=== PATIENT | female | born 1945 | race Caucasian/White ===

== ENCOUNTER 2019-04-07 15:18 | Outpatient (CLI) | payer MEDICARE, OTHER, SELFPAY ==
--- NOTE | ~2019-04-07 | MM_ITS ---
EXAMINATION: MM screening mammo BI HISTORY: Screening mammogram TECHNIQUE: Craniocaudal and mediolateral oblique 3-D tomosynthesis images were obtained and synthetic 2-D images were generated. CAD analysis was submitted and interpreted. COMPARISON: No prior mammogram is available for comparison at this institution. BREAST PARENCHYMAL COMPOSITION: The breasts are almost entirely fatty. FINDINGS: Scattered benign-appearing calcifications are present. There is no evidence of suspicious m ass, calcification, or architectural distortion to suggest malignancy in either breast. There has bee n no suspicious interval change. IMPRESSION: 1. No mammographic evidence of malignancy. 2. Recommend routine screening mammography in one year. Calx Reviewed, dictated and finalized at location A. [employer]
== END 2019-04-07 15:19 | disposition home or self-care (01) ==
LOC: ANHIMG 15:25
PROVIDERS: PCP Internal Medicine; Visit Provider Internal Medicine
DX: Z12.31 Encounter for screening mammogram for malignant neoplasm of breast (principal)
CPT/HCPCS: 77067

== ENCOUNTER 2019-04-21 13:00 | Outpatient (CLI) | payer MEDICARE, OTHER, SELFPAY ==
--- NOTE | ~2019-04-21 | DEXA_ITS ---
Bone Density Report Name: Isabela Moe Age: 73 Sex: Female Ethnicity: White Date of : 1945 Indication: postmenopausal; height loss; cancer; Referring Provider: OTF PEDRO Study: Bone densitometry was performed. Exam Date: April 21, 2019 Accession number: [id number] Bone Density: Region BMD T-score Z-score Classification AP Spine (L1, L2) 0.904 -0.7 1.5 Normal Femoral Neck (Left) 0.566 -2.6 -0.6 Osteoporosis Total Hip (Left) 0.828 -0.9 0.8 Normal Total Hip Bilateral Avg 0.843 -0.8 0.9 Normal Femoral Neck (Right) 0.563 -2.6 -0.6 Osteoporosis Total Hip (Right) 0.857 -0.7 1.0 Normal World Health Organization criteria for BMD impression classify patients as: Normal (T-score at or above -1.0), Osteopenia (T-score between -1.0 and -2.5), or Osteoporosis (T-score at or below -2.5). 10-year Fracture Risk: FRAX not reported because: Some T-score for Spine Total or Hip Total or Femoral Neck at or below -2.5 Treated for osteoporosis Clinical Information Provided by Patient: Is being treated for osteoporosis Has used the following medications: Fosamax (i.e. alendronate) Has the following medical conditions: Cancer Patient maximum height was 63 Menopause Age: 53 Drinks caffeinated beverages Onset of menses at age 13 Number of children 0 Impression: The patient has osteoporosis, based on the Left Femoral Neck T-score. Discussion: It is important to ask patients whether they are taking their medications and to encourage continued and appropriate compliance with their osteoporosis therapies to reduce fracture risk. It is also important to review their risk factors and encourage appropriate calcium and vitamin D intakes, exercise, fall prevention and other lifestyle measures. Follow-Up: Consider a repeat BMD and Vertebral Fracture Assessment (VFA) exam in 2 years or sooner if medically necessary, to reassess this patient's status. Reported by: ADAM on 04/21/2019 1:29:00 PM. Reviewed, dictated and finalized at location A. NOE
== END 2019-04-21 13:01 | disposition home or self-care (01) ==
LOC: ANHIMG 13:07
PROVIDERS: PCP Internal Medicine; Visit Provider Internal Medicine
DX: M81.0 Age-related osteoporosis without current pathological fracture (principal)
CPT/HCPCS: 77080

== ENCOUNTER 2019-07-25 11:56 | Outpatient (CLI) | payer MEDICARE, OTHER, SELFPAY ==
[2019-07-25 12:45] LABS: Add Urine Microscopic? NO; Appearance Urine Clear (Clear); Bilirubin Urine Negative (Negative); Blood Urine Negative (Negative); Color Urine Yellow (Yellow); Glucose Urine UA Negative (Negative); Ketones Urine Negative (Negative); Leukocyte Esterase Ur Negative LEU/UL (NEGATIVE); Nitrate Urine Negative (Negative); Protein Urine Negative (Negative); Urobilinogen Urine Negative mg/dL (<2.0)
[2019-07-25 12:53] LABS: Hemoglobin A1C 7.2 % (<5.7)
[2019-07-25 12:59] LABS: Alanine Aminotransferase 52 U/L (4-35); Albumin Level 4.1 g/dL (3.5-5.1); Alkaline Phosphatase 93 U/L (38-126); Aspartate Amino Transferase 53 U/L (14-36); Bilirubin,Total 1.2 mg/dL (0.2-1.3); Blood Urea Nitrogen 12 mg/dL (7-17); Calcium 9.3 mg/dL (8.4-10.2); Carbon Dioxide 32 mmol/L (22-30); Chloride 96 mmol/L (98-107); Cholesterol 124 mg/dL (0-200); Estimated Glomerular Filt Rate > 60; Glucose 194 mg/dL (65-105); HDL Direct 38 mg/dL; Potassium 4.7 mmol/L (3.4-5.0); Sodium 133 mmol/L (137-145); Triglycerides 135 mg/dL (<150)
[2019-07-25 13:06] LABS: Iron 65 ug/dL (37-170)
[2019-07-25 13:10] LABS: LDL Cholesterol Direct 64 mg/dL
[2019-07-25 13:16] LABS: Percent Iron Saturation 17 % (20-50)
== END 2019-07-25 11:57 | disposition home or self-care (01) ==
PROVIDERS: PCP Internal Medicine; Visit Provider Internal Medicine
DX: E78.2 Mixed hyperlipidemia (principal); I10 Essential (primary) hypertension; Z79.899 Other long term (current) drug therapy; E11.9 Type 2 diabetes mellitus without complications
CPT/HCPCS: 36415; 80048; 80061; 80076; 81003; 82728; 83036; 83540; 83550; 84443

== ENCOUNTER 2019-08-10 07:46 | Outpatient (CLI) | payer MEDICARE, OTHER, SELFPAY ==
--- NOTE | ~2019-08-10 | US_ITS ---
US right upper quadrant DATE: 08/10/2019 08:16 INDICATION: Elevated liver function tests TECHNIQUE: Real-time imaging and Doppler analysis COMPARISON: None FINDINGS: No hepatic or pancreatic space-occupying mass lesion is evident. Normal hepatopedal portal venous flow. The common bile duct measures 4.7 mm, normal. No gallstones or gallbladder wall thickening or abnormal pericholecystic fluid collection. Negative s onographic Madrigal's sign. IMPRESSION: No significant abnormality Reviewed, dictated and finalized at Location [facility]. Reviewed, dictated and finalized at location A. IMPRESSION: No significant abnormality
== END 2019-08-10 07:47 | disposition home or self-care (01) ==
PROVIDERS: PCP Internal Medicine; Visit Provider Internal Medicine
DX: R94.5 Abnormal results of liver function studies (principal)
CPT/HCPCS: 76705

== ENCOUNTER 2019-08-30 12:50 | Outpatient (RCR) | payer MEDICARE, OTHER, SELFPAY ==
[2019-08-30 13:04] VITALS: BMI 24.7
== END 2019-11-28 23:59 | disposition home or self-care (01) ==
LOC: ANHDMC 12:50
PROVIDERS: PCP Internal Medicine; Visit Provider Internal Medicine
DX: E11.9 Type 2 diabetes mellitus without complications (principal); Z71.3 Dietary counseling and surveillance
CPT/HCPCS: 97802

== ENCOUNTER 2019-10-10 15:37 | Day surgery (SDC) | payer MEDICARE, OTHER, SELFPAY ==
[2019-10-10] VITALS (27 sets, daily range): BP systolic 114–158; BP diastolic 52–120; PULSE 70–78; RESP 12–21; TEMP 36.3–36.9; O2SAT 90–100
--- NOTE | ~2019-10-10 | CT_ITS ---
EXAMINATION: CT abdomen pelvis w con DATE: 10/10/2019 16:47 INDICATION: Abdominal pain, nausea and vomiting TECHNIQUE: Computed tomography (CT) of the abdomen and pelvis was performed with 100 mL Omnipaque-350 intravenous contrast. Automated exposure control and iterative reconstruction technique were employe d. The dose-length product was 412.95 mGy-cm. COMPARISON: None FINDINGS: Calcified nodule in the right middle lobe as well as a few splenic calcifications consistent with old granulomatous disease. Smooth septal line thickening and mild peripheral groundglass opacities in bi lateral lung bases consistent with mild pulmonary edema. Heart size is normal. Atherosclerotic gaines ry artery calcifications and/or stenting. No pericardial or pleural effusion. Wall thickening the dis jocelin esophagus suggesting esophagitis. Mild periportal edema in the liver. There is also a trace amoun t of fluid at the gallbladder fossa between the liver and otherwise normal-appearing gallbladder. Nieves creas, bilateral adrenal glands and kidneys are normal. Incidentally noted accessory right renal wilton ry and vein supplying the lower pole. There is inflammatory stranding surrounding the fluid-filled an d dilated appendix which measures up to 1.4 cm in maximal diameter. Intraluminal densities likely rep resent appendicoliths. There is also cecal wall thickening at the appendiceal orifice. Findings are c onsistent with acute appendicitis. Anastomotic suture line along the sigmoid colon suggesting prior p artial colectomy. No bowel obstruction. There is additional small amount of ascites in the pelvis. Bl adder, uterus and left adnexa are unremarkable. 2.4 cm right adnexal cyst. No abscess or free intrape ritoneal gas. No pathologically enlarged abdominal or pelvic lymphadenopathy. There is calcified athe rosclerosis of the aorta and many of the other arteries. Lumbar levoscoliosis with severe spondylosi s. IMPRESSION: 1. Acute appendicitis with small amount of likely reactive ascites. Dr. Sna discussed these find ings with Dr. Wang at 5:05 PM. 2. Mild pulmonary edema at the lung bases. 3. Mild distal esophageal wall thickening consistent with esophagitis. Reviewed, dictated and finalized at location A. IMPRESSION: 1. Acute appendicitis with small amount of likely reactive ascites. Dr. Melody falk discussed these findings with Dr. Wang at 5:05 PM. 2. Mild pulmonary edema at the lung bases. 3. Mild distal esophageal wall thickening consistent with esophagitis.
[2019-10-10 16:02] LABS: Hematocrit 36.8 % (37.0-47.0); Hemoglobin 12.1 g/dL (12.0-15.0); Mean Corpuscular HGB Conc 32.9 g/dl (32-36); Mean Corpuscular Hemoglobin 25.9 pg (26-34); Mean Corpuscular Volume 78.8 fl (80-100); Mean Platelet Volume 10.3 fl (7.4-10.4); Platelet Count Result 258 k/mm3 (150-375); Red Blood Count 4.67 M/mm3 (4.2-5.4); Red Cell Distribution Width 14.8 % (11.5-14.5); White Blood Count 21.1 K/mm3 (4.5-10.0)
--- NOTE | 2019-10-10 16:07 | ED.ABDPAIN ---
HPI - Abdominal Pain General Chief Complaint: Abdominal Pain Stated Complaint: ABD PAIN Time Seen by Provider: 10/10/19 15:48 History of Present Illness HPI narrative: Sent from PCP office for Abdominal pain. RLQ pain for the past 3 days. Becoming more severe. Associated with nausea and 1 episode of vomiting on Thursday. Last BM Thursday. She has a h/o colon resection secondary to cancer. Related Data Home Medications Medication Instructions Recorded Confirmed aspirin 81 mg tablet,delayed 81 mg PO DAILY 01/20/19 10/10/19 release atorvastatin 40 mg tablet 40 mg PO DAILY 01/20/19 10/10/19 calcium carbonate-vitamin D3 500 1 tablet PO DAILY 01/20/19 10/10/19 mg (1,250 mg)-600 unit tablet ferrous sulfate 325 mg (65 mg 325 mg PO DAILY 01/20/19 10/10/19 iron) tablet glimepiride 1 mg tablet 1 mg PO QAM 01/20/19 10/10/19 sitagliptin 100 mg tablet 100 mg PO DAILY 01/20/19 10/10/19 alendronate 70 mg tablet 70 mg PO WEEKLY 02/17/19 10/10/19 mecobalamin (vitamin B12) 1,000 1,000 mcg SUBLINGUAL DAILY 05/03/19 10/10/19 mcg disintegrating tablet,sublingual niacin 500 mg capsule,extended 500 mg PO QAM 05/03/19 10/10/19 release Adult Multivitamin (w-lutein) 1 tablet PO DAILY 10/10/19 10/10/19 Allergies Allergy/AdvReac Type Severity Reaction Status Date / Time shrimp Allergy Intermediate Hives Verified 10/10/19 14:59 cucumber AdvReac Severe gas Verified 10/10/19 14:59 erythromycin base AdvReac Mild upset Verified 10/10/19 14:59 [From E-Mycin] stomach morphine AdvReac Mild dry heaves Verified 10/10/19 14:59 Penicillins AdvReac Mild dry heaves Verified 10/10/19 14:59 Review of Systems Review of Systems: All systems reviewed & are unremarkable except as noted in HPI and below Constitutional: Constitutional: Denies fever(s) Cardiovascular: Cardiovascular: Denies chest pain Respiratory: Respiratory: Denies dyspnea Gastrointestinal: Gastrointestinal: Reports abdominal pain, Reports constipation, Denies diarrhea, Reports nausea and Reports vomiting PMFSH Past Medical History Medical History Abdominal pain Benign essential hypertension BMI 26.0-26.9,adult BMI 27.0-27.9,adult Cataract Colon cancer screening DM type 2 (diabetes mellitus, type 2) Elevated homocysteine Elevated LFTs Encounter for Medicare annual wellness exam Encounter for routine adult health examination without abnormal findings Encounter for screening mammogram for malignant neoplasm of breast Encounter to establish care Hearing loss History of colon cancer HTN (hypertension), benign Hyperlipidemia Iron deficiency anemia 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 Osteoporosis Personal history of nicotine dependence Wears hearing aid in both ears Surgical History Surgical History History of bilateral knee replacement History of bowel resection Laparoscopic low anterior resection in 2016 Social History Social History Spiritual care concerns: No Exam Const: General: no acute distress and alert Orientation/consciousness: patient oriented x3 HENMT: Head: normal to inspection Neck: Neck: normal visual inspection and no lymphadenopathy Chest: Chest palpation & inspection: no tenderness Resp: Effort & Inspection: normal respiratory effort Auscultation: clear to auscultation bilaterally, no rales, no rhonchi and no wheezes Cardio: Jugular venous distension: no JVD Rate: regular rate Rhythm: regular rhythm Heart sounds: no murmurs GI: Inspection: non-distended GI Palp: Yes Soft to palpation and Yes Tenderness to palpation present (GI) (RLQ, suprapubic) Skin: General skin exam: normal color Neuro: General: patient oriented x3, moves all extremities and CN's II-XI intact bilaterally Speech: normal speech Psych: Appearance: well kempt Affect: normal affect Course Vital Si
[2019-10-10 16:14] LABS: Alanine Aminotransferase 24 U/L (4-35); Albumin Level 4.3 g/dL (3.5-5.1); Alkaline Phosphatase 57 U/L (38-126); Anion Gap 14.8 mmol/L (7-16); Aspartate Amino Transferase 26 U/L (14-36); Bilirubin,Total 2.4 mg/dL (0.2-1.3); Blood Urea Nitrogen 9 mg/dL (7-17); Calcium 8.9 mg/dL (8.4-10.2); Carbon Dioxide 27 mmol/L (22-30); Chloride 87 mmol/L (98-107); Estimated CRCL calculation 71 ml/min; Estimated Glomerular Filt Rate > 60; Glucose 173 mg/dL (65-105); Lipase 65 U/L (23-300); Potassium 3.8 mmol/L (3.4-5.0); Sodium 125 mmol/L (137-145)
[2019-10-10 16:25] LABS: Lymphocytes Absolute Manual 4.22 K/mm3 (1.1-4.5); Monocytes Absolute Manual 1.05 K/mm3 (0.1-0.90); Monocytes Percent Manual 5 % (3-9); Neutrophils Percent Manual 75 % (46-73); Platelet Estimate Adequate (Adequate); Total Cells Counted 100
[2019-10-10 16:40] LABS: Add Urine Microscopic? YES; Appearance Urine Clear (Clear); Bacteria Urine Trace /hpf; Bilirubin Urine Negative (Negative); Blood Urine 1+ (Negative); Color Urine Yellow (Yellow); Glucose Urine UA Negative (Negative); Ketones Urine Negative (Negative); Leukocyte Esterase Ur Negative LEU/UL (Negative); Mucus Urine Rare /lpf; Nitrate Urine Negative (Negative); Protein Urine Negative (Negative); Specific Grav Ur 1.012 (1.001-1.035); Urobilinogen Urine Negative mg/dL (<2.0); WBC Urine 0-3 /hpf
[2019-10-10] MEDS: SODIUM CHLORIDE 0.9% IV 1,000 ML 999 ML IV CONT (16:59)
[2019-10-10] MEDS: ERTAPENEM 1 GM/NS 50 ML 1 GM/50 ML BAG IVPB (17:45)
--- NOTE | 2019-10-10 18:05 | WPDANESEPP ---
Anes - Eval Pre Procedure Procedure: Laparoscopic appendectomy Date/Time: 10/10/19 18:05 Surgeon: Rex Baker M.D. Preop Diagnosis: acute appendicitis Pre Op Diagnosis: APPENDICITIS Patient Data Age: 73 Gender: F Height: 1.55 m Weight: 63.7 kg Last Vital Signs Temp 36.9 C 10/10/19 15:58 Pulse 73 10/10/19 17:53 Resp 21 H 10/10/19 17:53 BP 138/84 10/10/19 17:31 Pulse Ox 93 10/10/19 17:31 Allergies Allergy/AdvReac Type Severity Reaction Status Date / Time shrimp Allergy Intermediate Hives Verified 10/10/19 14:59 cucumber AdvReac Severe gas Verified 10/10/19 14:59 erythromycin base AdvReac Mild upset Verified 10/10/19 14:59 [From E-Mycin] stomach morphine AdvReac Mild dry heaves Verified 10/10/19 14:59 Penicillins AdvReac Mild dry heaves Verified 10/10/19 14:59 Home Medications Medication Instructions Recorded Confirmed Type aspirin 81 mg tablet,delayed 81 mg PO DAILY 01/20/19 10/10/19 History release atorvastatin 40 mg tablet 40 mg PO DAILY 01/20/19 10/10/19 History calcium carbonate-vitamin D3 500 tablet PO 01/20/19 10/10/19 History mg (1,250 mg)-600 unit tablet ferrous sulfate 325 mg (65 mg 325 mg PO DAILY 01/20/19 10/10/19 History iron) tablet glimepiride 1 mg tablet 1 mg PO QAM 01/20/19 10/10/19 History kaajgzam-lhwzyyu-hkbv-lutein mcg PO 01/20/19 10/10/19 History sitagliptin 100 mg tablet 100 mg PO DAILY 01/20/19 10/10/19 History alendronate 70 mg tablet 70 mg PO WEEKLY 02/17/19 10/10/19 History folic acid 1 mg tablet 1 mg PO DAILY #90 tablet 03/17/19 10/10/19 Rx omeprazole 20 mg capsule,delayed 20 mg PO DAILY #90 cap 03/28/19 10/10/19 Rx release mecobalamin (vitamin B12) 1,000 1,000 mcg SUBLINGUAL DAILY 05/03/19 10/10/19 History mcg disintegrating tablet,sublingual niacin 500 mg capsule,extended 500 mg PO QAM 05/03/19 10/10/19 History release nadolol 20 mg tablet 20 mg PO BID #180 tablet 06/20/19 10/10/19 Rx blood sugar diagnostic #100 each 08/15/19 10/10/19 Rx metformin 500 mg tablet,extended 500 mg PO .COMPLEX #270 tablet 08/15/19 10/10/19 Rx release 24 hr lisinopril 20 mg tablet 20 mg PO BID #180 tablet 09/15/19 10/10/19 Rx icosapent ethyl 1 gram capsule 2 gm PO BID #360 cap 10/10/19 10/10/19 Rx Laboratory Tests 10/10/19 10/10/19 10/10/19 15:53 15:53 16:27 WBC 21.1 K/mm3 H K/mm3 (4.5-10.0) RBC 4.67 M/mm3 M/mm3 (4.2-5.4) Hgb 12.1 g/dL g/dL (12.0-15.0) Hct 36.8 % L % (37.0-47.0) MCV 78.8 fl L fl (80-100) MCH 25.9 pg L pg (26-34) MCHC 32.9 g/dl g/dl (32-36) RDW 14.8 % H % (11.5-14.5) Plt Count 258 k/mm3 k/mm3 (150-375) MPV 10.3 fl fl (7.4-10.4) Immature Gran % (Auto) Not Reportable Neut % (Auto) Not Reportable Lymph % (Auto) Not Reportable Talbot % (Auto) Not Reportable Eos % (Auto) Not Reportable Baso % (Auto) Not Reportable Lymph # (Auto) Not Reportable Talbot # (Auto) Not Reportable Eos # (Auto) Not Reportable Baso # (Auto) Not Reportable Abs Immat Gran (auto) Not Reportable Absolute Neuts (auto) Not Reportable Absolute Nucleated RBC Not Reportable Total Counted 100 Neutrophils % (Manual) 75 % H % (46-73) Lymphocytes % (Manual) 20.0 % % (18-44) Monocytes % (Manual) 5 % % (3-9) Nucleated RBC % Not Reportable Abs Lymphs (Manual) 4.22 K/mm3 K/mm3 (1.1-4.5) Abs Monocytes (Manual) 1.05 K/mm3 H K/mm3 (0.1-0.90) Platelet Estimate Adequate (Adequate) Sodium 125 mmol/L L mmol/L (137-145) Potassium 3.8 mmol/L mmol/L (3.4-5.0) Chloride 87 mmol/L L mmol/L (98-107) Carbon Dioxide 27 mmol/L mmol/L (22-30) Anion Gap 14.8 mmol/L mmol/L (7-16
--- NOTE | 2019-10-10 18:15 | PM.IMHP ---
H&P: HPI History of Present Illness Date/Time: 10/10/19 18:15 Chief complaint: Right lower quadrant pain Narrative: Isabela Moe is a 73 year old female who presented to the emergency department this afternoon with complaints of abdominal pain this started 2 days ago. Her pain was somewhat vague it 1st and she also experienced some nausea and vomiting. She felt that after vomiting her pain would hopefully we resolved, but it did not. She has never experienced pain like this in the past. She denies any fevers or chills. She does have a history of colon cancer and previously underwent low anterior resection. Review of Systems Review of Systems: All systems reviewed & are unremarkable except as noted in HPI and below Constitutional: Constitutional: Denies fever(s) Eyes: Eyes: Denies change in vision ENT: Denies hearing loss, Denies neck pain and Denies sore throat Cardiovascular: Cardiovascular: Denies chest pain and Denies dyspnea Respiratory: Respiratory: Denies cough, Denies dyspnea and Denies wheezing Gastrointestinal: Gastrointestinal: Reports as per HPI Genitourinary: Genitourinary: Denies hematuria and Denies dysuria Musculoskeletal: Musculoskeletal: Denies arthralgias, Denies joint swelling and Denies neck pain Allergic/Immunologic: Allergic/Immunologic: Denies wheezing PMFSH Past Medical History Medical History (Updated 10/10/19 @ 18:22 by Rex Baker DO) Abdominal pain Benign essential hypertension BMI 26.0-26.9,adult BMI 27.0-27.9,adult Cataract Colon cancer screening DM type 2 (diabetes mellitus, type 2) Elevated homocysteine Elevated LFTs Encounter for Medicare annual wellness exam Encounter for routine adult health examination without abnormal findings Encounter for screening mammogram for malignant neoplasm of breast Encounter to establish care Hearing loss History of colon cancer HTN (hypertension), benign Hyperlipidemia Iron deficiency anemia 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 Osteoporosis Personal history of nicotine dependence Wears hearing aid in both ears Surgical History Surgical History (Updated 10/10/19 @ 18:22 by Rex Baker DO) History of bilateral knee replacement History of bowel resection Laparoscopic low anterior resection in 2016 Social History Social History Spiritual care concerns: No Meds Home Medications and Allergies Home Medications Medication Instructions Recorded Confirmed Type aspirin 81 mg tablet,delayed 81 mg PO DAILY 01/20/19 10/10/19 History release atorvastatin 40 mg tablet 40 mg PO DAILY 01/20/19 10/10/19 History calcium carbonate-vitamin D3 500 tablet PO 01/20/19 10/10/19 History mg (1,250 mg)-600 unit tablet ferrous sulfate 325 mg (65 mg 325 mg PO DAILY 01/20/19 10/10/19 History iron) tablet glimepiride 1 mg tablet 1 mg PO QAM 01/20/19 10/10/19 History wuozkicm-mdmuisk-gemb-lutein mcg PO 01/20/19 10/10/19 History sitagliptin 100 mg tablet 100 mg PO DAILY 01/20/19 10/10/19 History alendronate 70 mg tablet 70 mg PO WEEKLY 02/17/19 10/10/19 History folic acid 1 mg tablet 1 mg PO DAILY #90 tablet 03/17/19 10/10/19 Rx omeprazole 20 mg capsule,delayed 20 mg PO DAILY #90 cap 03/28/19 10/10/19 Rx release mecobalamin (vitamin B12) 1,000 1,000 mcg SUBLINGUAL DAILY 05/03/19 10/10/19 History mcg disintegrating tablet,sublingual niacin 500 mg capsule,extended 500 mg PO QAM 05/03/19 10/10/19 History release nadolol 20 mg tablet 20 mg PO BID #180 tablet 06/20/19 10/10/19 Rx blood sugar diagnostic #100 each 08/15/19 10/10/19 Rx metformin 500 mg tablet,extended 500 mg PO .COMPLEX #270 tablet 08/15/19 10/10/19 Rx release 24 hr lisinopril 20 mg tablet 20 mg PO BID #180 tablet 09/15/19 10/10/19 Rx icosapent ethyl 1 gram capsule 2 gm PO BID #360 cap 10/10/19 10/10/19 Rx Allergies Allergy/AdvReac Type Severity Reaction Status Date / Time shrimp Allergy Intermed
--- NOTE | 2019-10-10 18:26 | WPDANESEFPP ---
Anes - Eval Final PreProcedure Day of Procedure 10/10/19 18:26 Patient weight: overweight Heart: regular rate and rhythm Lungs: clear to auscultation and normal air movement Airway: Mallampati scale class II Neurological: alert and oriented Last oral intake: >/= 8 hours ASA classification: III Emergent: no Anesthetic plan: proceed Anesthesia type and monitoring: general ETT Informed Consent: The patient's anesthetic plan and its attendant risks and benefits were discussed with the patient/family/POA. Questions were solicited and answers provided to the satisfaction of the patient/family/POA.
[2019-10-10] MEDS: BUPIVACAINE/EPINEPHRINE 0.5% 10 ML VIAL 30 ML INFILTRATE (18:59)
[2019-10-10] MEDS: LACTATED RINGERS 1,000 ML 30 ML IV CONT (19:26)
--- NOTE | 2019-10-10 19:28 | PM.PROC ---
Procedure Note - Detailed Date of procedure: 10/10/19 Pre-op diagnosis: Right lower quadrant pain Post-op diagnosis: other (Acute gangrenous appendicitis) Procedure performed: Laparoscopic Appendectomy Description of procedure: Procedure as well as risks, benefits, and alternatives were explained to the patient. The patient agreed to proceed. Written consent was obtained and placed in chart prior to procedure. The patient was brought back to surgical suite. She was placed supine on operating table. Time-out was done to confirm the patient and procedure. The patient was then intubated by the Anesthesia Department. her abdomen was prepped and draped in sterile fashion using chlorhexidine prep. A 5 mm incision was made just to the left of the patient's umbilicus and a 5 mm Optiview trocar was advanced through the abdominal layers under direct visualization. Once inside the peritoneal cavity, carbon dioxide insufflation was used to create a pneumoperitoneum. The camera was inserted and the abdomen was inspected. No immediate abnormalities were identified. The patient was then placed in slight Trendelenburg position and rotated to the left. A 5 mm incision was made in the suprapubic region in midline and a 5 mm trocar was inserted under direct visualization. A 12 mm incision was made in the left lower quadrant and a 12 mm trocar was inserted under direct visualization. The right lower quadrant was carefully inspected. The cecum was identified and then this was traced back to the appendix. The appendix was identified and grasped at the mesoappendix and lifted anteriorly. Careful blunt dissection was carried out at the base of the appendix through the mesoappendix using a [place] grasper. An Endo-DALTON 45 mm blue load stapler was then advanced across the base of the appendix and clamped and fired. A white reload was then clamped across the mesoappendix and fired. This freed up our appendix completely. It was then placed in an EndoCatch bag and removed through the left lower quadrant port. The staple lines were then inspected. Hemostasis appeared adequate and the staple lines appeared secure. The area was then irrigated with sterile saline. The pelvis was then carefully inspected and irrigated with sterile saline as well and the remainder of the abdomen was carefully inspected. The patient was then flattened out in bed. One final inspection was made around the abdominal cavity and no other abnormalities were seen. The left lower quadrant port was removed and a Rashaun-Jose cone was used to approximate the fascia with a 0 Vicryl simple interrupted suture. The remaining ports were then removed under direct visualization. The camera was removed and the pneumoperitoneum was released. 0.5% bupivacaine with epinephrine was infiltrated locally around each of the incisions. The skin of the incisions was then approximated using 4-0 Monocryl subcuticular suture and Exofin glue was applied on top. The patient was then awakened from anesthesia, extubated, and transferred to Recovery. Anesthesia: GETA and local (0.5% bupivicaine with epi) Surgeon: Rex Baker DO Estimated blood loss (mL): 5 Pathology: yes (Appendix) Complications: No immediate complications Condition: stable Disposition: observation Findings: this is a 73-year-old woman who presented to the emergency department with right lower quadrant pain this started 2 days ago. She was experiencing nausea vomiting, but denies any fevers. She had never experienced pain like this in the past. CT in the emergency department showed evidence of acute appendicitis. Discussions were made with the patient about her treatment options and decision was made to proceed with urgent laparoscopic appendectomy, possible open. Laparoscopic appendectomy was performed. The appendix was inflamed and appeared gangrenous but did not appear to be perforated yet. Was no evidence of abscess. The base of the appendi
[2019-10-10 19:47] LABS: Glucose Point of Care 192 (65-105)
--- NOTE | 2019-10-10 22:15 | ADMGEN ---
This patient, Isabela Moe, was admitted to 2 Medical Room 261-01. Patient/family oriented to hospital policies and general routines including ID bracelet, bed and alarms, visiting hours, pain management, procedures, bathroom and other care routines, personal items, smoking policy, room service/diet, and visiting hours. Valuables list has been completed. Information on how to activate the Rapid Response Team has been discussed. Patient/Family are encouraged to report perceived risks to care and to ask questions if they do not understand what they are told or what they should do.
[2019-10-11 01:56] VITALS: BP 132/57; PULSE 69; RESP 18; TEMP 36.4; O2SAT 90
[2019-10-11 04:48] LABS: Glucose Point of Care 223 (65-105)
[2019-10-11 05:42] VITALS: BP 132/53; PULSE 64; RESP 18; TEMP 36.2; O2SAT 93
[2019-10-11 06:03] LABS: Hematocrit 35.9 % (37.0-47.0); Hemoglobin 11.6 g/dL (12.0-15.0); Mean Corpuscular HGB Conc 32.3 g/dl (32-36); Mean Corpuscular Hemoglobin 26.1 pg (26-34); Mean Corpuscular Volume 80.7 fl (80-100); Mean Platelet Volume 10.8 fl (7.4-10.4); Platelet Count Result 219 k/mm3 (150-375); Red Blood Count 4.45 M/mm3 (4.2-5.4); Red Cell Distribution Width 14.8 % (11.5-14.5); White Blood Count 14.5 K/mm3 (4.5-10.0)
[2019-10-11 06:28] LABS: Alanine Aminotransferase 34 U/L (4-35); Albumin Level 3.9 g/dL (3.5-5.1); Alkaline Phosphatase 56 U/L (38-126); Anion Gap 14.6 mmol/L (7-16); Aspartate Amino Transferase 33 U/L (14-36); Bilirubin,Total 1.5 mg/dL (0.2-1.3); Blood Urea Nitrogen 9 mg/dL (7-17); Calcium 8.5 mg/dL (8.4-10.2); Carbon Dioxide 28 mmol/L (22-30); Chloride 91 mmol/L (98-107); Estimated CRCL calculation 71 ml/min; Estimated Glomerular Filt Rate > 60; Glucose 220 mg/dL (65-105); Potassium 3.6 mmol/L (3.4-5.0); Sodium 130 mmol/L (137-145)
--- NOTE | 2019-10-11 07:39 | WPDANESPN ---
Anes - Prog Note Post-Op Date/Time: 10/11/19 07:39 Cardiovascular status: normal Respiratory status: normal Airway patency: baseline Mental status: baseline Post-Op hydration status: normal Vital Signs: Last Vital Signs Temp 36.2 C L 10/11/19 05:42 Pulse 64 10/11/19 05:42 Resp 18 10/11/19 05:42 BP 132/53 L 10/11/19 05:42 Pulse Ox 93 10/11/19 05:42 I/O: Intake & Output 10/10/19 10/10/19 10/11/19 15:59 23:59 07:59 Intake Total 1200 190 Output Total 600 Balance 1200 -410 Laboratory Tests 10/11/19 05:29 10/11/19 05:29 10/10/19 10/10/19 10/10/19 15:53 15:53 16:27 WBC 21.1 H RBC 4.67 Hgb 12.1 Hct 36.8 L MCV 78.8 L MCH 25.9 L MCHC 32.9 RDW 14.8 H Plt Count 258 MPV 10.3 Immature Gran % (Auto) Not Reportable Neut % (Auto) Not Reportable Lymph % (Auto) Not Reportable [place] % (Auto) Not Reportable Eos % (Auto) Not Reportable Baso % (Auto) Not Reportable Lymph # (Auto) Not Reportable [place] # (Auto) Not Reportable Eos # (Auto) Not Reportable Baso # (Auto) Not Reportable Abs Immat Gran (auto) Not Reportable Absolute Neuts (auto) Not Reportable Absolute Nucleated RBC Not Reportable Total Counted 100 Neutrophils % (Manual) 75 H Lymphocytes % (Manual) 20.0 Monocytes % (Manual) 5 Nucleated RBC % Not Reportable Abs Lymphs (Manual) 4.22 Abs Monocytes (Manual) 1.05 H Platelet Estimate Adequate Sodium 125 L Potassium 3.8 Chloride 87 L Carbon Dioxide 27 Anion Gap 14.8 BUN 9 Creatinine 0.50 L Estim Creat Clear Calc 71 Estimated GFR > 60 Glucose 173 H POC Capillary Glucose Calcium 8.9 Total Bilirubin 2.4 H AST 26 ALT 24 Alkaline Phosphatase 57 Total Protein 7.0 Albumin 4.3 Lipase 65 Urine Color Yellow Urine Appearance Clear Urine pH 6.0 Ur Specific Mims 1.012 Urine Protein Negative Urine Glucose (UA) Negative Urine Ketones Negative Ur Blood (Man) 1+ H Urine Nitrate Negative Urine Bilirubin Negative Urine Urobilinogen Negative Leukocyte Esterase Rfl Negative Urine RBC 3-5 H Urine WBC 0-3 Urine Bacteria Trace Urine Mucus Rare 10/10/19 10/11/19 10/11/19 19:32 04:45 05:29 WBC 14.5 H RBC 4.45 Hgb 11.6 L Hct 35.9 L MCV 80.7 MCH 26.1 MCHC 32.3 RDW 14.8 H Plt Count 219 MPV 10.8 H Immature Gran % (Auto) Neut % (Auto) Lymph % (Auto) [place] % (Auto) Eos % (Auto) Baso % (Auto) Lymph # (Auto) [place] # (Auto) Eos # (Auto) Baso # (Auto) Abs Immat Gran (auto) Absolute Neuts (auto) Absolute Nucleated RBC Total Counted Neutrophils % (Manual) Lymphocytes % (Manual) Monocytes % (Manual) Nucleated RBC % Abs Lymphs (Manual) Abs Monocytes (Manual) Platelet Estimate Sodium Potassium Chloride Carbon Dioxide Anion Gap BUN Creatinine Estim Creat Clear Calc Estimated GFR Glucose POC Capillary Glucose 192 H 223 H Calcium Total Bilirubin AST ALT Alkaline Phosphatase Total Protein Albumin Lipase Urine Color Urine Appearance Urine pH Ur Specific Mims Urine Protein Urine Glucose (UA) Urine Ketones Ur Blood (Man) Urine Nitrate Urine Bilirubin Urine Urobilinogen Leukocyte Esterase Rfl Urine RBC Urine WBC Urine Bacteria Urine Mucus 10/11/19 05:29 WBC RBC Hgb Hct MCV MCH MCHC RDW Plt Count MPV Immature Gran % (Auto) Neut % (Auto) Lymph % (Auto) [place] % (Auto) Eos % (Auto) Baso % (Auto) Lymph # (Auto) [place] # (Auto) Eos # (Auto) Baso # (Auto) Abs Immat Gran (auto) Absolute Neuts (auto) Absolute Nucleated RBC Total Counted Neutrophils % (Manual) Lymphocytes % (Manual) Monocytes % (Manual) Nucleated RBC % Abs Lymphs (Manual) A
[2019-10-11] MEDS: GLIMEPIRIDE 1 MG TABLET PO (07:46)
[2019-10-11 08:08] LABS: Glucose Point of Care 198 (65-105)
[2019-10-11] MEDS: lisinopriL 20 MG TABLET PO (08:43)
[2019-10-11] MEDS: ASPIRIN 81 MG ENTERIC TABLET PO (08:43)
[2019-10-11] MEDS: ATORVASTATIN 40 MG TABLET PO (08:43)
[2019-10-11 08:44] VITALS: PULSE 76
[2019-10-11] MEDS: PANTOPRAZOLE 40 MG TABLET PO (08:44)
[2019-10-11] MEDS: nadoloL 20 MG TABLET PO (08:44)
--- NOTE | 2019-10-11 10:19 | PM.DS ---
DS: Admitting Diagnosis Admitting Diagnosis Admitting Diagnosis: Acute appendicitis with localized peritonitis, without perforation or gangrene Hypertension Hyperlipidemia History of colon cancer with low anterior resection Type 2 DM Osteoporosis DS: Discharge Diagnosis Discharge Diagnosis (1) Acute appendicitis with localized peritonitis without abscess: Code(s): K35.30 - Acute appendicitis with localized peritonitis, without perforation or gangrene Status: Acute Assessment and Plan: 10/10/[address] Baker. Pathology pending on discharge. (2) HTN (hypertension), benign: Code(s): I10 - Essential (primary) hypertension Status: Chronic Assessment and Plan: Stable. Continue home medications. (3) History of colon cancer: Code(s): Z85.038 - Personal history of other malignant neoplasm of large intestine Status: Acute (4) DM type 2 (diabetes mellitus, type 2): Qualifiers: Diabetes mellitus terminologist insulin use: without terminologist use Diabetes mellitus complication status: without complication Qualified Code(s): E11.9 - Type 2 diabetes mellitus without complications Code(s): E11.9 - Type 2 diabetes mellitus without complications Status: Chronic Assessment and Plan: Stable. Continue home medications. F/u with PCP. (5) Hyperlipidemia: Qualifiers: Hyperlipidemia type: mixed hyperlipidemia Qualified Code(s): E78.2 - Mixed hyperlipidemia Code(s): E78.5 - Hyperlipidemia, unspecified Status: Acute Assessment and Plan: Stable. Continue home medication. (6) Osteoporosis: Qualifiers: Osteoporosis type: unspecified Presence of current pathological fracture: without current pathological fracture Qualified Code(s): M81.0 - Age-related osteoporosis without current pathological fracture Code(s): M81.0 - Age-related osteoporosis without current pathological fracture Status: Acute DS: Summary Hospital Course Reason for hospitalization: Isabela Moe is a 73 year old female who presented to the emergency department yesterday with complaints of abdominal pain that started 2 days ago. She also has a history of colon cancer and underwent low anterior resection. ED workup revealed acute appendicitis with leukocytosis. Our service was contacted by the ED physician and she was admitted to our service for surgical evaluation. Hospital Course: The patient was started on broad-spectrum IV antibiotics and was evaluated. She was taken for an urgent laparoscopic appendectomy by Dr. Baker yesterday evening. She was found to have acute gangrenous appendicitis, but no evidence of perforation intra-operatively (see full operative note for details). IV antibiotics were continued following surgery. She was recovered and transferred to the medical floor. Labs were repeated this morning and her white blood cell count has trended down. Her sodium was low on admission, but following her treatment with IV fluids and post-op, her sodium has improved. She had not been eating or drinking well prior to admission. The patient is now seen this morning on the medical floor. She reports tolerating a diabetic diet well without any nausea, vomiting, or bloating. She has been up walking to the bathroom and in the room, and is tolerating this well. She has not required any pain medication post-op. She reports passing lots of gas this morning. Voiding without any complaints. No other concerns at this time. The patient is stable for discharge. I discussed this with Dr. Baker this morning and we will plan on sending her home on oral antibiotics x 7 days due to the gangrenous appendix. I discussed all discharge instructions with the patient and answered all of her questions. Status at Discharge Functional status at discharge: independent ambulation Overall status at discharge: patient is progressing back to baseline Time Spent with Natalia
[2019-10-11 11:08] LABS: Glucose Point of Care 161 (65-105)
== END 2019-10-11 13:55 | disposition home or self-care (01) ==
LOC: ANHED 16:08 → ANHSURGERY 17:33 → ANH2MED 20:16
PROVIDERS: Emergency Provider Emergency Medicine; PCP Internal Medicine; Visit Provider Surgery
PROC: 0DTJ4ZZ Resection of Appendix, Percutaneous Endoscopic Approach (ICD-10-PCS; CPT 44970; principal; 2019-10-10 18:30)
DX: K35.30 Acute appendicitis with localized peritonitis, without perforation or gangrene (principal); K38.8 Other specified diseases of appendix; I10 Essential (primary) hypertension; E11.9 Type 2 diabetes mellitus without complications; E78.5 Hyperlipidemia, unspecified; D50.9 Iron deficiency anemia, unspecified; M81.0 Age-related osteoporosis without current pathological fracture; Z87.891 Personal history of nicotine dependence; Z79.84 Long term (current) use of oral hypoglycemic drugs; Z85.038 Personal history of other malignant neoplasm of large intestine; Z90.49 Acquired absence of other specified parts of digestive tract; Z79.82 Long term (current) use of aspirin
CPT/HCPCS: 44970; 36415; 74177; 80053; 81001; 83690; 85025; 85027; 88304; 88342; 96361; 96374; 96375; 99285; A9270; J0330; J1100; J1335; J2405; J2704; J3010; J7030; J7120; Q9967

== ENCOUNTER 2019-11-29 10:19 | Outpatient (CLI) | payer MEDICARE, OTHER, SELFPAY ==
[2019-11-29 10:53] LABS: Basophils Absolute Auto 0.1 K/mm3 (0.0-0.1); Basophils Percent Auto 0.6 % (0.2-1.2); Eosinophils Absolute Auto 0.1 K/mm3 (0-0.3); Eosinophils Percent Auto 1.5 % (0-4.4); Hematocrit 38.3 % (37.0-47.0); Hemoglobin 12.4 g/dL (12.0-15.0); Immature Granulocyte Absolute 0.01 K/mm3 (0.00-0.031); Immature Granulocyte Percent A 0.1 % (0-0.5); Lymphocytes Absolute Auto 3.34 K/mm3 (0.9-3.2); Lymphocytes Percent Auto 39.7 % (18.3-44.2); Mean Corpuscular HGB Conc 32.4 g/dl (32-36); Mean Corpuscular Hemoglobin 26.3 pg (26-34); Mean Corpuscular Volume 81.1 fl (80-100); Mean Platelet Volume 10.1 fl (7.4-10.4); Monocytes Absolute Auto 0.7 K/mm3 (0.1-0.6); Monocytes Percent Auto 8.2 % (2.6-8.5); Neutrophils Absolute Auto 4.2 K/mm3 (1.3-6.7); Neutrophils Percent Auto 49.9 % (45.5-73.1); Platelet Count Result 228 k/mm3 (150-375); Red Blood Count 4.72 M/mm3 (4.2-5.4); Red Cell Distribution Width 14.5 % (11.5-14.5); White Blood Count 8.4 K/mm3 (4.5-10.0)
[2019-11-29 11:03] LABS: Hemoglobin A1C 6.5 % (<5.7)
[2019-11-29 11:05] LABS: Alanine Aminotransferase 22 U/L (4-35); Albumin Level 4.1 g/dL (3.5-5.1); Alkaline Phosphatase 42 U/L (38-126); Anion Gap 6 mmol/L (8-16); Aspartate Amino Transferase 28 U/L (14-36); Bilirubin,Total 1.1 mg/dL (0.2-1.3); Blood Urea Nitrogen 13 mg/dL (7-17); Calcium 9.6 mg/dL (8.4-10.2); Carbon Dioxide 34 mmol/L (22-30); Chloride 94 mmol/L (98-107); Cholesterol 139 mg/dL (0-200); Estimated Glomerular Filt Rate > 60; Glucose 158 mg/dL (65-105); HDL Direct 42 mg/dL; Potassium 4.4 mmol/L (3.4-5.0); Sodium 134 mmol/L (137-145); Triglycerides 123 mg/dL (<150)
[2019-11-29 11:15] LABS: Iron 67 ug/dL (37-170)
[2019-11-29 11:17] LABS: LDL Cholesterol Direct 71 mg/dL
[2019-11-29 11:24] LABS: Percent Iron Saturation 18 % (20-50)
== END 2019-11-29 10:20 | disposition home or self-care (01) ==
LOC: ANHLAB 10:24
PROVIDERS: PCP Internal Medicine; Visit Provider Internal Medicine
DX: D50.9 Iron deficiency anemia, unspecified (principal); E78.2 Mixed hyperlipidemia; I10 Essential (primary) hypertension; E11.9 Type 2 diabetes mellitus without complications
CPT/HCPCS: 36415; 80053; 80061; 82728; 83036; 83540; 83550; 85025

== ENCOUNTER 2019-12-12 00:34 | Outpatient (CLI) | payer MEDICARE, OTHER, SELFPAY ==
[2019-12-12 18:12] LABS: SARS-CoV-2 RNA PCR Negative
== END 2019-12-12 00:35 | disposition home or self-care (01) ==
LOC: ANHCOVIDDT 00:35
PROVIDERS: PCP Internal Medicine; Visit Provider Internal Medicine Gastroenterology
DX: Z01.812 Encounter for preprocedural laboratory examination (principal); Z20.828 Contact with and (suspected) exposure to other viral communicable diseases
CPT/HCPCS: 87635; C9803; U0003

== ENCOUNTER 2019-12-14 02:39 | Day surgery (SDC) | payer MEDICARE, OTHER, SELFPAY ==
[2019-12-07 15:08] VITALS: BMI 25.0
--- NOTE | 2019-12-13 14:35 | WPDANESEPPF ---
Anes - Initial Pre Proc Eval Procedure: Operation Date: 12/14/19 07:30 Proposed Procedures p Screening Colonoscopy - Gee Paul MD Date/Time: 12/13/19 14:35 Surgeon: Gee Paul MD Pre Op Diagnosis: Neoplasm Screening Patient Data Age: 74 Gender: F Height: 1.57 m Weight: 62 kg Allergies Allergy/AdvReac Type Severity Reaction Status Date / Time shrimp Allergy Intermediate Hives Verified 12/14/19 06:27 cucumber AdvReac Severe gas Verified 12/14/19 06:27 erythromycin base AdvReac Mild upset Verified 12/14/19 06:27 [From E-Mycin] stomach morphine AdvReac Mild dry heaves Verified 12/14/19 06:27 Penicillins AdvReac Mild dry heaves Verified 12/14/19 06:27 Home Medications Medication Instructions Recorded Confirmed Type aspirin 81 mg tablet,delayed 81 mg PO DAILY 01/20/19 12/07/19 History release calcium carbonate-vitamin D3 500 1 tablet PO DAILY 01/20/19 12/07/19 History mg (1,250 mg)-600 unit tablet ferrous sulfate 325 mg (65 mg 325 mg PO DAILY 01/20/19 12/07/19 History iron) tablet sitagliptin 100 mg tablet 100 mg PO DAILY 01/20/19 12/07/19 History alendronate 70 mg tablet 70 mg PO WEEKLY 02/17/19 12/07/19 History folic acid 1 mg tablet 1 mg PO DAILY #90 tablet 03/17/19 12/07/19 Rx omeprazole 20 mg capsule,delayed 20 mg PO DAILY #90 cap 03/28/19 12/07/19 Rx release mecobalamin (vitamin B12) 1,000 1,000 mcg SUBLINGUAL DAILY 05/03/19 12/07/19 History mcg disintegrating tablet,sublingual niacin 500 mg capsule,extended 500 mg PO QAM 05/03/19 12/07/19 History release nadolol 20 mg tablet 20 mg PO BID #180 tablet 06/20/19 12/07/19 Rx blood sugar diagnostic #100 each 08/15/19 12/06/19 Rx lisinopril 20 mg tablet 20 mg PO BID #180 tablet 09/15/19 12/07/19 Rx Adult Multivitamin (w-lutein) 1 tablet PO DAILY 10/10/19 12/07/19 History icosapent ethyl 1 gram capsule 2 gm PO BID #360 cap 10/10/19 12/07/19 Rx acetaminophen 500 mg tablet 500 mg PO Q6H PRN 10/20/19 12/07/19 History atorvastatin 40 mg tablet 40 mg PO DAILY #90 tablet 10/31/19 12/07/19 Rx glimepiride 1 mg tablet 1 mg PO QAM #90 tablet 10/31/19 12/07/19 Rx metformin 500 mg tablet 500 mg PO BID #90 tablet 12/06/19 12/07/19 Rx Patient hx anesthesia problems: none Family hx anesthesia problems: none PMFSH Past Medical History Medical History (Updated 12/06/19 @ 13:43 by Ursula Dennison [facility]) Abdominal pain Benign essential hypertension BMI 25.0-25.9,adult BMI 26.0-26.9,adult BMI 26.0-26.9,adult BMI 27.0-27.9,adult Cataract Colon cancer screening DM type 2 (diabetes mellitus, type 2) Elevated homocysteine Elevated LFTs Encounter for Medicare annual wellness exam Encounter for routine adult health examination without abnormal findings Encounter for screening mammogram for malignant neoplasm of breast Encounter to establish care Hearing loss History of colon cancer Hospital discharge follow-up HTN (hypertension), benign Hyperlipidemia Iron deficiency anemia 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 Osteoporosis Personal history of nicotine dependence Wears hearing aid in both ears Surgical History Surgical History History of bilateral knee replacement History of bowel resection Laparoscopic low anterior resection in 2016 S/P appendectomy Social History Social History Smoking status: Never smoker Smoking end date: 10/10/19 Alcohol intake: never Substance use: never Substance use type: does not use Living arrangements: alone Gender identity (if verbalized by the patient): Female Sexual Orientation (if Verbalized by the Patient): Straight or Heterosexual Spiritual care concerns: No Anes - Eval Final PreProcedure Day of Procedure 12/13/19 14:35 Patient weight: normal Heart: regular rate and rhythm Lungs: clear to auscultation and normal air movement Airway: Mallampati scale class II Neurolog
[2019-12-14 06:29] VITALS: BP 169/110; PULSE 62; RESP 18; TEMP 36.2; O2SAT 98; BMI 24.4
[2019-12-14] MEDS: LACTATED RINGERS 1,000 ML 150 ML IV CONT (06:56)
[2019-12-14 06:57] LABS: Glucose Point of Care 144 (65-105)
--- NOTE | 2019-12-14 07:32 | PM.HPGS ---
History of Present Illness History of Present Illness Consent: Risks, benefits, and alternatives have been discussed and questions answered. Patient agrees to proceed with procedure. Chief complaint: Neoplasm Screening Narrative: Isabela Moe is a 74 year old female Here for colon cancer screening. She had colon cancer 4 years ago resected and followed by chemotherapy [facility] Past Medical History Medical History Abdominal pain Benign essential hypertension BMI 25.0-25.9,adult BMI 26.0-26.9,adult BMI 26.0-26.9,adult BMI 27.0-27.9,adult Cataract Colon cancer screening DM type 2 (diabetes mellitus, type 2) Elevated homocysteine Elevated LFTs Encounter for Medicare annual wellness exam Encounter for routine adult health examination without abnormal findings Encounter for screening mammogram for malignant neoplasm of breast Encounter to establish care Hearing loss History of colon cancer Hospital discharge follow-up HTN (hypertension), benign Hyperlipidemia Iron deficiency anemia 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 Osteoporosis Personal history of nicotine dependence Wears hearing aid in both ears Surgical History Surgical History History of bilateral knee replacement History of bowel resection Laparoscopic low anterior resection in 2016 S/P appendectomy Social History Social History Smoking status: Never smoker Smoking end date: 10/10/19 Alcohol intake: never Substance use: never Substance use type: does not use Living arrangements: alone Gender identity (if verbalized by the patient): Female Sexual Orientation (if Verbalized by the Patient): Straight or Heterosexual Spiritual care concerns: No Meds Home Medications and Allergies Home Medications Medication Instructions Recorded Confirmed Type aspirin 81 mg tablet,delayed 81 mg PO DAILY 01/20/19 12/07/19 History release calcium carbonate-vitamin D3 500 1 tablet PO DAILY 01/20/19 12/07/19 History mg (1,250 mg)-600 unit tablet ferrous sulfate 325 mg (65 mg 325 mg PO DAILY 01/20/19 12/07/19 History iron) tablet sitagliptin 100 mg tablet 100 mg PO DAILY 01/20/19 12/07/19 History alendronate 70 mg tablet 70 mg PO WEEKLY 02/17/19 12/07/19 History omeprazole 20 mg capsule,delayed 20 mg PO DAILY #90 cap 03/28/19 12/07/19 Rx release mecobalamin (vitamin B12) 1,000 1,000 mcg SUBLINGUAL DAILY 05/03/19 12/07/19 History mcg disintegrating tablet,sublingual niacin 500 mg capsule,extended 500 mg PO QAM 05/03/19 12/07/19 History release blood sugar diagnostic #100 each 08/15/19 12/06/19 Rx lisinopril 20 mg tablet 20 mg PO BID #180 tablet 09/15/19 12/07/19 Rx Adult Multivitamin (w-lutein) 1 tablet PO DAILY 10/10/19 12/07/19 History icosapent ethyl 1 gram capsule 2 gm PO BID #360 cap 10/10/19 12/07/19 Rx acetaminophen 500 mg tablet 500 mg PO Q6H PRN 10/20/19 12/07/19 History atorvastatin 40 mg tablet 40 mg PO DAILY #90 tablet 10/31/19 12/07/19 Rx glimepiride 1 mg tablet 1 mg PO QAM #90 tablet 10/31/19 12/07/19 Rx metformin 500 mg tablet 500 mg PO BID #90 tablet 12/06/19 12/07/19 Rx folic acid 1 mg tablet See Rx Instructions .ROUTE 12/14/19 Rx .COMPLEX #90 tablet nadolol 20 mg tablet See Rx Instructions .ROUTE 12/14/19 Rx .COMPLEX #180 tablet Allergies Allergy/AdvReac Type Severity Reaction Status Date / Time shrimp Allergy Intermediate Hives Verified 12/14/19 06:27 cucumber AdvReac Severe gas Verified 12/14/19 06:27 erythromycin base AdvReac Mild upset Verified 12/14/19 06:27 [From E-Mycin] stomach morphine AdvReac Mild dry heaves Verified 12/14/19 06:27 Penicillins AdvReac Mild dry heaves Verified 12/14/19 06:27 Vital Signs Vital Signs - 24 hr 12/14/19 06:29 Temperature 36.2 C L Pulse Rate 62 Respiratory Rate 18 Blood Pressure 169/110 H Pulse Oximetry 98
[2019-12-14 07:55] VITALS: BP 119/52; PULSE 62; RESP 16; O2SAT 99
[2019-12-14 08:05] VITALS: BP 122/50; PULSE 62; RESP 14; O2SAT 98
[2019-12-14 08:15] VITALS: BP 144/63; PULSE 63; RESP 15; O2SAT 98
== END 2019-12-14 08:31 | disposition home or self-care (01) ==
PROVIDERS: PCP Internal Medicine; Visit Provider Internal Medicine Gastroenterology
PROC: 0DJD8ZZ Inspection of Lower Intestinal Tract, Via Natural or Artificial Opening Endoscopic (ICD-10-PCS; CPT 45378; principal; 2019-12-14 07:30)
DX: Z12.11 Encounter for screening for malignant neoplasm of colon (principal); K63.5 Polyp of colon; Z85.038 Personal history of other malignant neoplasm of large intestine; Z98.0 Intestinal bypass and anastomosis status; Z90.49 Acquired absence of other specified parts of digestive tract; I10 Essential (primary) hypertension; E11.9 Type 2 diabetes mellitus without complications; Z92.21 Personal history of antineoplastic chemotherapy; Z79.899 Other long term (current) drug therapy; Z87.891 Personal history of nicotine dependence
CPT/HCPCS: 45380; 88305; J2704; J7120

== ENCOUNTER 2020-02-08 14:30 | Outpatient (RCR) | payer MEDICARE, OTHER, SELFPAY | END 2020-03-05 16:00 | disposition home or self-care (01) | LOC: ANHDMC 14:30 | PROVIDERS: PCP Internal Medicine; Visit Provider Internal Medicine | DX: E11.9 Type 2 diabetes mellitus without complications (principal); Z71.89 Other specified counseling | CPT/HCPCS: G0108; G0109 ==

== ENCOUNTER 2020-03-12 09:53 | Outpatient (CLI) | payer MEDICARE, OTHER, SELFPAY ==
[2020-03-12 10:15] LABS: Basophils Absolute Auto 0.1 K/mm3 (0.0-0.1); Basophils Percent Auto 0.8 % (0.2-1.2); Eosinophils Absolute Auto 0.1 K/mm3 (0-0.3); Eosinophils Percent Auto 1.6 % (0-4.4); Hematocrit 40.7 % (37.0-47.0); Hemoglobin 13.2 g/dL (12.0-15.0); Immature Granulocyte Absolute 0.03 K/mm3 (0.00-0.031); Immature Granulocyte Percent A 0.3 % (0-0.5); Lymphocytes Absolute Auto 3.53 K/mm3 (0.9-3.2); Lymphocytes Percent Auto 39.4 % (18.3-44.2); Mean Corpuscular HGB Conc 32.4 g/dl (32-36); Mean Corpuscular Hemoglobin 27.6 pg (26-34); Monocytes Absolute Auto 0.7 K/mm3 (0.1-0.6); Monocytes Percent Auto 7.5 % (2.6-8.5); Neutrophils Absolute Auto 4.5 K/mm3 (1.3-6.7); Neutrophils Percent Auto 50.4 % (45.5-73.1); Platelet Count Result 213 k/mm3 (150-375); Red Blood Count 4.79 M/mm3 (4.2-5.4)
[2020-03-12 10:33] LABS: Alanine Aminotransferase 32 U/L (4-35); Albumin Level 4.1 g/dL (3.5-5.1); Alkaline Phosphatase 55 U/L (38-126); Anion Gap 4 mmol/L (8-16); Aspartate Amino Transferase 34 U/L (14-36); Bilirubin,Total 1.2 mg/dL (0.2-1.3); Blood Urea Nitrogen 14 mg/dL (7-17); Calcium 9.3 mg/dL (8.4-10.2); Carbon Dioxide 35 mmol/L (22-30); Chloride 94 mmol/L (98-107); Cholesterol 133 mg/dL (0-200); Estimated Glomerular Filt Rate > 60; Glucose 187 mg/dL (65-105); HDL Direct 41 mg/dL; Potassium 4.3 mmol/L (3.4-5.0); Sodium 133 mmol/L (137-145); Triglycerides 113 mg/dL (<150)
[2020-03-12 10:44] LABS: LDL Cholesterol Direct 65 mg/dL
[2020-03-12 12:44] LABS: Hemoglobin A1C 6.6 % (<5.7)
== END 2020-03-12 09:54 | disposition home or self-care (01) ==
PROVIDERS: PCP Internal Medicine; Visit Provider Internal Medicine
DX: D50.9 Iron deficiency anemia, unspecified (principal); I10 Essential (primary) hypertension; E11.9 Type 2 diabetes mellitus without complications; E78.2 Mixed hyperlipidemia
CPT/HCPCS: 36415; 80053; 80061; 82728; 83036; 85025

== ENCOUNTER 2020-03-21 14:34 | Outpatient (RCR) | payer MEDICARE, OTHER, SELFPAY | END 2020-06-04 14:00 | disposition home or self-care (01) | LOC: ANHDMC 14:34 | PROVIDERS: PCP Internal Medicine; Visit Provider Internal Medicine | DX: E11.65 Type 2 diabetes mellitus with hyperglycemia (principal); Z71.89 Other specified counseling | CPT/HCPCS: G0109 ==

== ENCOUNTER 2020-04-11 11:57 | Outpatient (CLI) | payer MEDICARE, OTHER, SELFPAY ==
--- NOTE | ~2020-04-11 | MM_ITS ---
EXAMINATION: MM screening [facility] BI w [facility] HISTORY: Screening mammogram TECHNIQUE: Craniocaudal and mediolateral oblique 3-D tomosynthesis images were obtained and synthetic 2-D images were generated. CAD analysis was submitted and interpreted. COMPARISON: 04/07/2019 BREAST PARENCHYMAL COMPOSITION: The breasts are almost entirely fatty. FINDINGS: Scattered benign-appearing calcifications are present. There is no evidence of suspicious m ass, calcification, or architectural distortion to suggest malignancy in either breast. There has bee n no suspicious interval change. IMPRESSION: 1. No mammographic evidence of malignancy. 2. Recommend routine screening mammography in one year. BI-RADS Category 2: Benign finding(s). Reviewed, dictated and finalized at location A. 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
== END 2020-04-11 11:58 | disposition home or self-care (01) ==
PROVIDERS: PCP Internal Medicine; Visit Provider Internal Medicine
DX: Z12.31 Encounter for screening mammogram for malignant neoplasm of breast (principal)
CPT/HCPCS: 77063; 77067

== ENCOUNTER 2020-05-21 12:18 | Outpatient (CLI) | payer MEDICARE, OTHER, SELFPAY ==
--- NOTE | ~2020-05-21 | XR_ITS ---
EXAMINATION: XR hip LT min 2V DATE: 05/21/2020 12:39 INDICATION: Left hip pain. TECHNIQUE: 2 views of left hip were obtained. COMPARISON: None. FINDINGS: Bone alignment is normal. No fracture. There is mild left hip osteoarthritis. IMPRESSION: 1. Mild left hip osteoarthritis. Reviewed, dictated and finalized at location A.
== END 2020-05-21 12:19 | disposition home or self-care (01) ==
PROVIDERS: PCP Internal Medicine; Visit Provider Internal Medicine
DX: M16.12 Unilateral primary osteoarthritis, left hip (principal)
CPT/HCPCS: 73502

== ENCOUNTER 2020-05-24 12:19 | Outpatient (CLI) | payer MEDICARE, OTHER, SELFPAY ==
--- NOTE | ~2020-05-24 | XR_ITS ---
EXAMINATION: XR pelvis 1-2V EXAM DATE: 05/24/2020 12:35 INDICATION: M54.5 - No known recent injury provided at this time. Pain of the low back. TECHNIQUE: Pelvis frontal projection(s) obtained and reviewed. Correlation is made to left hip exam . FINDINGS: There is lumbar levoscoliosis. There is mild symmetric bilateral hip primary osteoarthriti s. Pelvic ring is intact, no fracture. No evidence of hip avascular necrosis. The soft tissue is unr emarkable. IMPRESSION: Mild bilateral hip osteoarthritis. Lumbar levoscoliosis. Reviewed, dictated and finalized at location A.
--- NOTE | ~2020-05-24 | XR_ITS ---
EXAMINATION: XR lumbar spine 2-3V EXAM DATE: 05/24/2020 12:35 INDICATION: M54.5 - No known recent injury provided at this time. Pain of the low back. TECHNIQUE: Lumber spine frontal, lateral, lateral L5-S1 projections for interpretation. There is no prior study for comparison. FINDINGS: There is moderate loss of the L5-S1 disc height, mild to moderate disc disease at the other lumbar levels. There is mild to moderate lumbar levoscoliosis centered at the L3 level. Moderate lum bar facet arthropathy. There are no acute fractures identified. The vertebral bodies are aligned in t he AP dimension. Moderate aortic arterial sclerosis. Sacrum, sacroiliac joints, sacral arcuate lines are intact. IMPRESSION: 1. Moderate lumbar spondylosis. 2. Mild to moderate levoscoliosis. Reviewed, dictated and finalized at location A.
== END 2020-05-24 12:20 | disposition home or self-care (01) ==
PROVIDERS: PCP Internal Medicine; Visit Provider Internal Medicine
DX: M47.817 Spondylosis without myelopathy or radiculopathy, lumbosacral region (principal); M16.0 Bilateral primary osteoarthritis of hip; M41.9 Scoliosis, unspecified
CPT/HCPCS: 72100; 72170

== ENCOUNTER 2020-07-27 09:39 | Outpatient (CLI) | payer MEDICARE, OTHER, SELFPAY ==
[2020-07-27 10:11] LABS: Basophils Absolute Auto 0.1 K/mm3 (0.0-0.1); Basophils Percent Auto 0.5 % (0.2-1.2); Eosinophils Absolute Auto 0.2 K/mm3 (0-0.3); Eosinophils Percent Auto 1.5 % (0-4.4); Hematocrit 42.2 % (37.0-47.0); Hemoglobin 13.8 g/dL (12.0-15.0); Immature Granulocyte Absolute 0.03 K/mm3 (0.00-0.031); Immature Granulocyte Percent A 0.3 % (0-0.5); Lymphocytes Absolute Auto 4.82 K/mm3 (0.9-3.2); Lymphocytes Percent Auto 43.7 % (18.3-44.2); Mean Corpuscular HGB Conc 32.7 g/dl (32-36); Mean Corpuscular Hemoglobin 28.5 pg (26-34); Mean Platelet Volume 9.7 fl (7.4-10.4); Monocytes Absolute Auto 0.6 K/mm3 (0.1-0.6); Monocytes Percent Auto 5.5 % (2.6-8.5); Neutrophils Absolute Auto 5.3 K/mm3 (1.3-6.7); Neutrophils Percent Auto 48.5 % (45.5-73.1); Platelet Count Result 241 k/mm3 (150-375); Red Blood Count 4.85 M/mm3 (4.2-5.4); Red Cell Distribution Width 13.5 % (11.5-14.5)
[2020-07-27 10:24] LABS: Cholesterol 132 mg/dL (0-200); HDL Direct 51 mg/dL; Triglycerides 144 mg/dL (<150)
[2020-07-27 10:25] LABS: Hemoglobin A1C 7.1 % (<5.7)
[2020-07-27 10:35] LABS: LDL Cholesterol Direct 59 mg/dL
[2020-07-27 10:43] LABS: Iron 88 ug/dL (37-170)
[2020-07-27 10:45] LABS: Creatinine Urine 37.2 mg/dL
[2020-07-27 10:50] LABS: MALB Creatinine Ratio 23.1 mg/g (0-30); Microalbumin Urine Random 8.6 mg/L (0-16.7)
[2020-07-27 10:52] LABS: Percent Iron Saturation 28 % (20-50)
[2020-07-27 11:01] LABS: Free T4 Free Thyroxine 1.19 ng/mL (0.78-2.19)
[2020-07-31 11:56] LABS: Vitamin D 1,25 (OH)2 Total 46 pg/mL (18-72); Vitamin D2 1,25 (OH)2 <8 pg/mL; Vitamin D3 1,25 (OH)2 46 pg/mL
== END 2020-07-27 09:40 | disposition home or self-care (01) ==
PROVIDERS: PCP Internal Medicine; Visit Provider Internal Medicine
DX: E55.9 Vitamin D deficiency, unspecified (principal); E78.2 Mixed hyperlipidemia; Z79.899 Other long term (current) drug therapy; D50.9 Iron deficiency anemia, unspecified; E11.9 Type 2 diabetes mellitus without complications; I10 Essential (primary) hypertension
CPT/HCPCS: 36415; 80061; 82043; 82652; 82728; 83036; 83540; 83550; 84439; 84443; 85025

== ENCOUNTER 2020-08-16 14:09 | Outpatient (RCR) | payer MEDICARE, OTHER, SELFPAY | END 2020-08-16 15:02 | disposition home or self-care (01) | LOC: ANHDMC 14:09 | PROVIDERS: PCP Internal Medicine; Visit Provider Internal Medicine | DX: E11.65 Type 2 diabetes mellitus with hyperglycemia (principal); Z71.89 Other specified counseling | CPT/HCPCS: G0108 ==

== ENCOUNTER 2020-12-10 09:39 | Outpatient (CLI) | payer MEDICARE, OTHER, SELFPAY ==
[2020-12-10 10:26] LABS: Basophils Absolute Auto 0.1 K/mm3 (0.0-0.1); Basophils Percent Auto 0.7 % (0.2-1.2); Eosinophils Absolute Auto 0.1 K/mm3 (0-0.3); Eosinophils Percent Auto 1.4 % (0-4.4); Hemoglobin 13.3 g/dL (12.0-15.0); Immature Granulocyte Absolute 0.05 K/mm3 (0.00-0.031); Immature Granulocyte Percent A 0.5 % (0-0.5); Lymphocytes Absolute Auto 3.74 K/mm3 (0.9-3.2); Lymphocytes Percent Auto 40.6 % (18.3-44.2); Mean Corpuscular HGB Conc 32.4 g/dl (32-36); Mean Corpuscular Hemoglobin 28.9 pg (26-34); Mean Corpuscular Volume 88.9 fl (80-100); Mean Platelet Volume 10.4 fl (7.4-10.4); Monocytes Absolute Auto 0.6 K/mm3 (0.1-0.6); Monocytes Percent Auto 6.5 % (2.6-8.5); Neutrophils Absolute Auto 4.6 K/mm3 (1.3-6.7); Neutrophils Percent Auto 50.3 % (45.5-73.1); Platelet Count Result 211 k/mm3 (150-375); Red Blood Count 4.61 M/mm3 (4.2-5.4); Red Cell Distribution Width 12.9 % (11.5-14.5); White Blood Count 9.2 K/mm3 (4.5-10.0)
[2020-12-10 10:47] LABS: LDL Cholesterol Direct 65 mg/dL
[2020-12-10 11:04] LABS: Anion Gap 6 mmol/L (8-16); Blood Urea Nitrogen 13 mg/dL (7-17); Calcium 9.5 mg/dL (8.4-10.2); Carbon Dioxide 33 mmol/L (22-30); Chloride 96 mmol/L (98-107); Cholesterol 130 mg/dL (0-200); Estimated Glomerular Filt Rate > 60; Glucose 171 mg/dL (65-110); HDL Direct 43 mg/dL; Potassium 4.5 mmol/L (3.4-5.0); Sodium 135 mmol/L (137-145); Triglycerides 129 mg/dL (<150)
[2020-12-10 11:10] LABS: Hemoglobin A1C 6.4 % (<5.7)
== END 2020-12-10 09:40 | disposition home or self-care (01) ==
PROVIDERS: PCP Internal Medicine; Visit Provider Internal Medicine
DX: E11.9 Type 2 diabetes mellitus without complications (principal); I10 Essential (primary) hypertension; E78.2 Mixed hyperlipidemia
CPT/HCPCS: 36415; 80048; 80061; 83036; 85025

== ENCOUNTER 2021-02-06 16:01 | Emergency (ER) | payer MEDICARE, OTHER, SELFPAY ==
--- NOTE | ~2021-02-06 | XR_ITS ---
EXAMINATION: XR elbow RT min 3V DATE: 02/06/2021 20:18 INDICATION: Right elbow pain. Fall. TECHNIQUE: 4 views of right elbow were obtained. COMPARISON: None. FINDINGS: Bone alignment is normal. There is a transverse supracondylar fracture of distal humerus in near-anatomic alignment. There is moderate elbow joint osteoarthritis. There is an elbow joint effus ion. IMPRESSION: 1. Nondisplaced transverse supracondylar fracture of distal humerus. 2. Moderate elbow joint osteoarthritis. 3. Elbow joint effusion. Reviewed, dictated and finalized at location A. 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
[2021-02-06 16:14] VITALS: BP 171/58; PULSE 76; RESP 20; TEMP 36.3; O2SAT 98
--- NOTE | 2021-02-06 20:21 | ED.FALL ---
HPI - Fall General Chief Complaint: Fall Stated Complaint: Fall, R elbow Pain Time Seen by Provider: 02/06/21 20:08 Source: patient Mode of arrival: ambulatory Limitations: no limitations History of Present Illness HPI Narrative: This is a 75 year old female that presents to the ER for right elbow pain after an injury today. Reports she was putting up decorations. Was carrying her step ladder and tripped. Reports falling forward onto her right elbow. Denies hitting her head or loss of consciousness. Reports since she has had right elbow pain. Reports decreased ROM due to pain. Also reports bruising and swelling. Denies numbness. Related Data Home Medications Medication Instructions Recorded Confirmed aspirin 81 mg tablet,delayed 81 mg PO DAILY 01/20/19 12/20/20 release calcium carbonate 500 mg-vitamin 1 tablet PO DAILY 01/20/19 12/20/20 D3 15 mcg (600 unit) tablet mecobalamin (vitamin B12) 1,000 1,000 mcg SUBLINGUAL DAILY 05/03/19 12/20/20 mcg disintegrating tablet,sublingual niacin 500 mg capsule,extended 500 mg PO QAM 05/03/19 12/20/20 release Adult Multivitamin (w-lutein) 1 tablet PO DAILY 10/10/19 12/20/20 acetaminophen 500 mg tablet 500 mg PO Q6H PRN 10/20/19 12/20/20 ferrous sulfate 325 mg (65 mg 325 mg PO BID tablet 03/23/20 12/20/20 iron) tablet Allergies Allergy/AdvReac Type Severity Reaction Status Date / Time shrimp Allergy Intermediate Hives Verified 12/19/20 11:35 cucumber AdvReac Severe gas Verified 12/19/20 11:35 erythromycin base AdvReac Mild upset Verified 12/19/20 11:35 [From E-Mycin] stomach morphine AdvReac Mild dry heaves Verified 12/19/20 11:35 Penicillins AdvReac Mild dry heaves Verified 12/19/20 11:35 Review of Systems Review of Systems: CONSTITUTIONAL: Denies fever MUSCULOSKELETAL: Reports joint pain, and myalgia. NEUROLOGIC: Denies numbness All systems reviewed & are unremarkable except as noted in HPI and below PMFSH Past Medical History Medical History (Updated 02/06/21 @ 21:28 by Shayla Carlson PA-C) Abdominal pain Benign essential hypertension BMI 25.0-25.9,adult BMI 26.0-26.9,adult BMI 26.0-26.9,adult BMI 27.0-27.9,adult Cataract Colon cancer screening DM type 2 (diabetes mellitus, type 2) Elevated homocysteine Elevated LFTs Encounter for Medicare annual wellness exam Encounter for routine adult health examination without abnormal findings Encounter for screening mammogram for malignant neoplasm of breast Encounter to establish care Hearing loss History of colon cancer Hospital discharge follow-up Hyperlipidemia Iron deficiency anemia Low back pain Neck pain, acute 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 Osteoporosis Personal history of nicotine dependence Wears hearing aid in both ears Surgical History Surgical History (Updated 12/19/20 @ 11:53 by Ursula Dennison [facility]) History of bilateral knee replacement History of bowel resection Laparoscopic low anterior resection in 2016 History of total bilateral knee replacement S/P appendectomy Social History Social History Smoking status: Former smoker Smoking end date: 10/10/19 Alcohol intake: never Substance use: never Substance use type: does not use Gender identity (if verbalized by the patient): Female Sexual Orientation (if Verbalized by the Patient): Straight or Heterosexual Spiritual care concerns: No Exam Narrative: GENERAL: Well-appearing, well-nourished, and in no acute distress. HEAD: Normocephalic, atraumatic. EYES: EOMI. CHEST: Clear to auscultation. No respiratory distress. No wheezes rales or rhonchi HEART: Regular rate and rhythm. No murmur heard. Normal peripheral pulses. EXTREMITIES: Normal range of motion. Mild to moderate edema and bruising about the right elbow, tender to palpation. Normal radial pulses. Normal sensation SKIN: Warm, dry, no rash. NEURO: No focal deficits. Alert and oriented x3. PSYCH: Normal mood
[2021-02-06] MEDS: ACETAMINOPHEN 500 MG TABLET 1000 MG PO (21:24)
== END 2021-02-06 22:04 | disposition home or self-care (01) ==
PROVIDERS: Emergency Provider Emergency Medicine; PCP Internal Medicine
DX: S42.414A Nondisplaced simple supracondylar fracture without intercondylar fracture of right humerus, initial encounter for closed fracture (principal); Z79.82 Long term (current) use of aspirin; I10 Essential (primary) hypertension; E11.9 Type 2 diabetes mellitus without complications; Z85.038 Personal history of other malignant neoplasm of large intestine; E78.5 Hyperlipidemia, unspecified; D50.9 Iron deficiency anemia, unspecified; M81.0 Age-related osteoporosis without current pathological fracture; Z96.653 Presence of artificial knee joint, bilateral; Z90.49 Acquired absence of other specified parts of digestive tract; Z87.891 Personal history of nicotine dependence; Z79.84 Long term (current) use of oral hypoglycemic drugs; W01.0XXA Fall on same level from slipping, tripping and stumbling without subsequent striking against object, initial encounter
CPT/HCPCS: 29105; 73080; 99284; A9270

== ENCOUNTER 2021-03-27 12:33 | Inpatient (IN) | payer MEDICARE, OTHER, SELFPAY ==
[2021-03-27] VITALS (30 sets, daily range): BP systolic 114–186; BP diastolic 56–122; PULSE 63–102; RESP 12–26; TEMP 35.7–37.1; O2SAT 75–100; BMI 24.1
--- NOTE | ~2021-03-27 | XR_ITS ---
XR chest 1V portable DATE: 03/29/2021 06:54 INDICATION: Pulmonary edema. Shortness of breath. TECHNIQUE: Portable AP chest on 03/29/2021 0645 hours COMPARISON: 03/27/2021 portable AP chest at 1300 hours FINDINGS: There is diminished pulmonary vascular congestion and pulmonary interstitial edema and near ly complete resolution of pulmonary infiltrates since 03/27/2021. Radial minimal pleural effusions. No pneumothorax. Heart size appears within normal range. IMPRESSION: Nearly complete resolution of congestive changes and pulmonary edema since 03/27/2021 Reviewed, dictated and finalized at location A. SCRIPTER IMPRESSION: Nearly complete resolution of congestive changes and pulmonary an a since 03/27/2021
--- NOTE | ~2021-03-27 | XR_ITS ---
EXAMINATION: XR chest 1V portable DATE: 03/27/2021 13:04 INDICATION: Shortness of breath TECHNIQUE: frontal view of the chest was obtained. COMPARISON: None FINDINGS: Diffuse increased interstitial pattern throughout both lungs with. Bronchial cuffing and some periphe ral Aparna B-lines at the bilateral costophrenic angles consistent with mild pulmonary edema. No pleu ral effusion or pneumothorax. The cardiomediastinal silhouette is within normal limits for AP techniq ue. IMPRESSION: 1. Bilateral diffuse increased interstitial pattern with peribronchial cuffing and peripheral Aparna B-lines consistent with mild pulmonary edema. Differential includes less likely pneumonia. Reviewed, dictated and finalized at location A. WELDER BODY ASSEMBLY IMPRESSION: 1. Bilateral diffuse increased interstitial pattern with peribronchial cuffing and peripheral Aparna B-lines consistent with mild pulmonary edema. Differentia l includes less likely pneumonia.
--- NOTE | 2021-03-27 12:50 | ED.GENADULT ---
HPI - General Adult General Chief complaint: Unspecified Stated complaint: SOB Time Seen by Provider: 03/27/21 12:41 Source: patient, family and RN notes reviewed Limitations: no limitations History of Present Illness HPI narrative: 75-year-old female presents emergency room for evaluation of cute onset of shortness of breath and difficulty breathing that started after she was getting eye surgery. During surgery patient was treated with 2 mg of Versed. Patient states that she then began developing anxiety and shortness of breath. Upon arrival to my department patient was satting 78 to 81% on room air. Patient denies any prior history with pulmonary vascular congestion. Patient denies any prior history of flash pulmonary edema. Related Data Home Medications Medication Instructions Recorded Confirmed aspirin 81 mg tablet,delayed 81 mg PO DAILY 01/20/19 03/12/21 release calcium carbonate 500 mg-vitamin 1 tablet PO DAILY 01/20/19 03/12/21 D3 15 mcg (600 unit) tablet mecobalamin (vitamin B12) 1,000 1,000 mcg SUBLINGUAL DAILY 05/03/19 03/12/21 mcg disintegrating tablet,sublingual niacin 500 mg capsule,extended 500 mg PO QAM 05/03/19 03/12/21 release Adult Multivitamin (w-lutein) 1 tablet PO DAILY 10/10/19 03/12/21 acetaminophen 500 mg tablet 500 mg PO Q6H PRN 10/20/19 03/12/21 ferrous sulfate 325 mg (65 mg 325 mg PO BID tablet 03/23/20 03/12/21 iron) tablet Allergies Allergy/AdvReac Type Severity Reaction Status Date / Time shrimp Allergy Intermediate Hives Verified 03/27/21 13:42 cucumber AdvReac Severe gas Verified 03/27/21 13:42 erythromycin base AdvReac Mild upset Verified 03/27/21 13:42 [From E-Mycin] stomach morphine AdvReac Mild dry heaves Verified 03/27/21 13:42 Penicillins AdvReac Mild dry heaves Verified 03/27/21 13:42 Review of Systems Review of Systems: CONSTITUTIONAL: Denies fever, chills, or sweats. EYES: Had eye surgery today and has patch over right eye. ENT: Denies rhinorrhea, congestion, sore throat, or otalgia. CARDIOVASCULAR: Denies chest pain, palpitations, or edema. RESPIRATORY: Shortness of breath GASTROINTESTINAL: Denies abdominal pain, nausea, vomiting, or diarrhea. GENITOURINARY: Denies dysuria or hematuria. SKIN: Denies rash or itching. MUSCULOSKELETAL: Denies back pain, joint pain, or myalgia. PMFSH Past Medical History Medical History Abdominal pain Benign essential hypertension BMI 25.0-25.9,adult BMI 26.0-26.9,adult BMI 26.0-26.9,adult BMI 27.0-27.9,adult Cataract Colon cancer screening DM type 2 (diabetes mellitus, type 2) Elevated homocysteine Elevated LFTs Encounter for Medicare annual wellness exam Encounter for routine adult health examination without abnormal findings Encounter for screening mammogram for malignant neoplasm of breast Encounter to establish care Hearing loss History of colon cancer Hospital discharge follow-up Hyperlipidemia Iron deficiency anemia Low back pain Neck pain, acute On lobsterman drug therapy Osteoporosis Personal history of nicotine dependence Wears hearing aid in both ears Surgical History Surgical History History of bilateral knee replacement History of bowel resection Laparoscopic low anterior resection in 2016 History of total bilateral knee replacement S/P appendectomy Social History Social History Smoking status: Former smoker Smoking end date: 10/10/19 Alcohol intake: never Substance use: never Substance use type: does not use Gender identity (if verbalized by the patient): Female Sexual Orientation (if Verbalized by the Patient): Straight or Heterosexual Spiritual care concerns: No Exam Narrative: APPEARANCE: Well appearing, no pain, no distress, well-nourished. HEAD: normocephalic, atraumatic. EYES: Patch over ri
[2021-03-27] MEDS: EPINEPHrine HCL INJ 1 MG/ML AMPUL 0.3 MG IM (12:57)
[2021-03-27] MEDS: diphenhydrAMINE HCl INJ 50 MG/ML VIAL 25 MG IV PUSH (12:57)
[2021-03-27] MEDS: ALBUTEROL SULFATE NEB 2.5 MG/0.5 ML INH 5 MG INHALATION (13:04)
--- NOTE | 2021-03-27 13:08 | PC.NURSE ---
Pt brought via [facility] for c/o sob, dyspnea after cataract surgery this am. Pt reportedly began SOB and stating I cant catch my breathe . pt noted to be 78% on room air, restless and stating im going to . ERP was immediately called to bedside, pt placed on NRB, iv access established. Pt appears more comfortable, 99% on nrb, medications given. Family at bedside.
--- NOTE | 2021-03-27 13:23 | ECG_ITS ---
Measurements Intervals [place] Rate: 65 P: 36 RI: 142 QRS: 39 QRSD: 85 T: 39 QT: 453 QTc: 472 Interpretive Statements SINUS RHYTHM NORMAL ECG Electronically Signed On 03-27-2021 15:46:54 TELETYPE OR VARITYPE KEYBOARD OPERATOR by Ramo Campos D.O.
[2021-03-27 13:28] LABS: Basophils Absolute Auto 0.1 K/mm3 (0.0-0.1); Basophils Percent Auto 0.4 % (0.2-1.2); Eosinophils Absolute Auto 0.1 K/mm3 (0-0.3); Eosinophils Percent Auto 0.3 % (0-4.4); Hematocrit 48.4 % (37.0-47.0); Hemoglobin 15.7 g/dL (12.0-15.0); Immature Granulocyte Absolute 0.06 K/mm3 (0.00-0.031); Immature Granulocyte Percent A 0.4 % (0-0.5); Lymphocytes Absolute Auto 4.13 K/mm3 (0.9-3.2); Lymphocytes Percent Auto 27.6 % (18.3-44.2); Mean Corpuscular HGB Conc 32.4 g/dl (32-36); Mean Corpuscular Hemoglobin 28.7 pg (26-34); Mean Corpuscular Volume 88.5 fl (80-100); Mean Platelet Volume 9.7 fl (7.4-10.4); Monocytes Absolute Auto 0.4 K/mm3 (0.1-0.6); Monocytes Percent Auto 2.8 % (2.6-8.5); Neutrophils Absolute Auto 10.2 K/mm3 (1.3-6.7); Neutrophils Percent Auto 68.5 % (45.5-73.1); Platelet Count Result 289 k/mm3 (150-375); Red Blood Count 5.47 M/mm3 (4.2-5.4); Red Cell Distribution Width 13.5 % (11.5-14.5)
[2021-03-27] MEDS: FUROSEMIDE INJ 40 MG/4 ML VIAL IV PUSH (13:29)
[2021-03-27] MEDS: NITROGLYCERIN SL 0.4 MG TABLET SUBLINGUAL (13:29)
[2021-03-27] MEDS: NITROGLYCERIN OINTMENT 1 INCH DOSE TRANSDERM (13:29)
--- NOTE | 2021-03-27 13:33 | PC.NURSE ---
PT NOTED TO BE 86 ON ON NRB. ERP MADE AWARE. RT AT BEDSIDE FOR BIPAP. PT MOVED TO ROOM CLOSER TO NURSES STATION.
--- NOTE | 2021-03-27 13:41 | PC.NURSE ---
Care transerred to Cat RN
[2021-03-27 13:47] LABS: Alanine Aminotransferase 34 U/L (4-35); Albumin Level 4.8 g/dL (3.5-5.1); Alkaline Phosphatase 71 U/L (38-126); Anion Gap 10 mmol/L (8-16); Aspartate Amino Transferase 37 U/L (14-36); Bilirubin,Total 1.5 mg/dL (0.2-1.3); Blood Urea Nitrogen 14 mg/dL (7-17); Calcium 9.2 mg/dL (8.4-10.2); Carbon Dioxide 29 mmol/L (22-30); Chloride 94 mmol/L (98-107); Estimated CRCL calculation 100 ml/min; Estimated Glomerular Filt Rate > 60; Glucose 343 mg/dL (65-110); Potassium 5.1 mmol/L (3.4-5.0); Sodium 133 mmol/L (137-145)
[2021-03-27 14:00] LABS: NT Pro B Type Natriuretic Pept 1790 pg/mL (5-100); Troponin I < 0.012 ng/mL (0.000-0.034)
[2021-03-27 14:18] LABS: Alveolar/Arterial O2 Gradient 97.1 mmHg; Fractional Inspired Oxygen 30 %; HCO3 ABG 24.6 mEq/l (22.0-26.0); Oxygen Content ABG 18.6 %vol (16.0-22.0); Oxygen Saturation ABG 92.1 % (95.0-100.0); Oxyhemoglobin 91.1 % THb (90.0-100.0); PO2 ABG 65.1 mmHg (80.0-100.0); PO2 FiO2 Ratio Arterial Blood 2.17 %; Total Hemoglobin 14.5 g/dL (12.0-18.0); pH ABG 7.365 (7.350-7.450)
[2021-03-27 14:19] LABS: Device BIPAP; Expiratory Pressure 5 cmH2O; Inspiratory Pressure 12 cmH2O; Modified Allen's Test Pass; Site Drawn RIGHT RADIAL
[2021-03-27 15:17] LABS: SARS-CoV-2 RNA PCR Negative
[2021-03-27 16:58] LABS: Troponin I < 0.012 ng/mL (0.000-0.034)
--- NOTE | 2021-03-27 18:55 | PC.NURSE ---
PT WISHES TO STAY OFF BIPAP AFTER EATING. RESPS EVEN AND NONLABORED. PT STATES FEELS MUCH BETTER. SANG Ho NP HOSPITALIST AWARE AND OK LONG PT'S TOLERATES.
[2021-03-27 19:48] LABS: Glucose Point of Care 288 mg/dl (65-105)
[2021-03-27 20:17] LABS: Troponin I 0.018 ng/mL (0.000-0.034)
--- NOTE | 2021-03-27 22:33 | ADMGEN ---
This patient, Isabela Moe, was admitted to IMU Room 214-01 at 2233. Patient/family oriented to hospital policies and general routines including ID bracelet, bed and alarms, visiting hours, pain management, procedures, bathroom and other care routines, personal items, smoking policy, room service/diet, and visiting hours. Information on how to activate the Rapid Response Team has been discussed. Patient/Family are encouraged to report perceived risks to care and to ask questions if they do not understand what they are told or what they should do.
[2021-03-28] VITALS (17 sets, daily range): BP systolic 122–175; BP diastolic 46–92; PULSE 63–91; RESP 14–20; TEMP 35.9–37.1; O2SAT 94–99
--- NOTE | 2021-03-28 | ECHO_ITS ---
Patient Info Name: Isabela Moe Age: 75 years : 1945 Gender: Female Ht: 73 in Wt: 231 lbs BSA: 2.35 m2 BP: 105 / 58 mmHg Technical Quality: Fair Exam Date: 03/28/2021 8:55 AM Exam Location: [facility] Patient Status: Inpatient Admit Date: 03/27/2021 Staff Ordering Physician: Renee Durán MD Cath Lab: Johan Madrigal, LEATHA, RT Attending Provider: Eugene Dixon MD Referring Physician: Leeanna MAS; Exam Type: CA echo dop color flow w con Study Info Indications R06.02 - Shortness of breath Summary 1. Left ventricular chamber dimension is mildly enlarged. 2. Definity contrast administered improved wall motion interpretation. 3. Basal inferior wall is hypokinetic. Basal to mid posterior wall is hypokinetic. 4. Ventricular septum is sigmoid shaped. No LVOT obstruction. 5. Left ventricular systolic function is normal, estimated at 55-60%. 6. The left ventricular diastolic function is grade III diastolic dysfunction. 7. Left atrial chamber dimension is severely enlarged. 8. The mitral valve has mildly calcified annulus. 9. There is moderate to severe mitral valve regurgitation. 10. There is trace tricuspid valve regurgitation. Left Ventricle Ventricular septum is sigmoid shaped. No LVOT obstruction. Tissue doppler is not performed. Definity contrast administered improved wall motion interpretation. Basal inferior wall is hypokinetic. Basal to mid posterior wall is hypokinetic. Left ventricular chamber dimension is mildly enlarged. Left ventricular systolic function is normal, estimated at 55-60%. The left ventricular diastolic function is grade III diastolic dysfunction. Right Ventricle Right ventricular systolic function is normal and with normal TAPSE 1.8 cm. Right ventricular chamber dimension is normal. Left Atria Left atrial chamber dimension is severely enlarged. Right Atria Right atrial chamber dimension is normal. Aortic Valve The aortic valve is trileaflet. There is no aortic valve stenosis. There is no aortic valve regurgitation. Pulmonic Valve There is no pulmonic regurgitation. Mitral Valve The mitral valve has mildly calcified annulus. There is no mitral valve stenosis. There is moderate to severe mitral valve regurgitation. Tricuspid Valve There is trace tricuspid valve regurgitation. RVSP is not calculated due to an inadequate TR jet. Pericardium/Pleural There is no pericardial effusion. Inferior Vena Cava Normal inferior vena cava with >50% collapse upon inspiration consistent with normal right atrial pressure, 5 mmHg. Aorta The aortic root size at the sinus of Valsalva is normal. Left Ventricular Outflow Tract Name Value Normal LVOT 2D LVOT Diameter 2.01 cm LVOT Doppler LVOT Peak Gradient 3 mmHg LVOT Mean Gradient 1 mmHg LVOT VTI 18.08 cm LVOT VTI/AV VTI Ratio 0.58 LVOT Stroke Volume 57.10 ml LVOT CO 4.14 l/min LVOT CI 1
--- NOTE | 2021-03-28 00:17 | PM.IMHP ---
H&P: HPI History of Present Illness Date/Time: 03/28/21 00:17 Chief Complaint: SOB Narrative: This is a 75-year-old female with past medical history significant for hypertension, type 2 diabetes mellitus, recent right humerus fracture, patient presented to the emergency room for evaluation after receiving catheter at surgery patient had episode of shortness of breath which require her to be placed on BiPAP. Patient has been in her usual state of health she denied any nausea ,any vomiting, abdominal pain ,diarrhea ,chest pain ,shortness of breath ,cough ,sputum production, fevers, chills or rigors, no PND, no orthopnea, no leg swelling. Patient had received 2 mg of Versed at surgery time. Preliminary workup was essentially nonrevealing. A chest x-ray showed Aparna B lines. At the time of my visit patient was of of BiPAP and denied any discomfort. Patient is been placed in observation. Review of Systems Review of Systems: Shortness of breath after eye surgery Constitutional: Constitutional: Denies chills, Denies fatigue, Denies fever(s), Denies night sweats, Denies poor appetite and Denies stops breathing during sleep Eyes: Eyes: Denies change in vision ENT: Denies dysphagia, Denies vertigo, Denies dizziness, Denies nasal congestion, Denies nasal discharge, Denies nasal obstruction and Denies odynophagia Cardiovascular: Cardiovascular: Denies chest pain at rest, Denies leg edema, Denies lightheadedness, Denies radiating jaw, neck or arm pain, Denies palpitations, Reports dyspnea, Denies dyspnea on exertion and Denies orthopnea Respiratory: Respiratory: Denies chest congestion, Denies cough and Denies excessive phlegm production Gastrointestinal: Gastrointestinal: Denies abdominal pain, Denies dyspepsia, Denies heartburn, Denies diarrhea, Denies nausea and Denies vomiting Genitourinary: Genitourinary: Denies dysuria Musculoskeletal: Musculoskeletal: Reports limited range of motion (Right elbow) Integumentary/Breasts: Skin/Breast: Denies rash Neurologic: Denies vertigo, Denies dizziness, Denies focal weakness and Denies Sensory deficit (Neuro) Psychiatric: Psychiatric: Reports no additional psychiatric complaints and Reports as per HPI Endocrine: Endocrine: Denies cold intolerance, Denies heat intolerance, Denies polyphagia, Denies polydipsia and Denies palpitations Hematologic/Lymphatic: Hematologic/Lymphatic: Reports no additional hematologic/lymphatic complaints and Reports as per HPI Allergic/Immunologic: Allergic/Immunologic: Reports no additional allergic/immunologic complaints and Reports as per HPI [facility] Past Medical History Medical History Abdominal pain Benign essential hypertension BMI 25.0-25.9,adult BMI 26.0-26.9,adult BMI 26.0-26.9,adult BMI 27.0-27.9,adult Cataract Colon cancer screening DM type 2 (diabetes mellitus, type 2) Elevated homocysteine Elevated LFTs Encounter for Medicare annual wellness exam Encounter for routine adult health examination without abnormal findings Encounter for screening mammogram for malignant neoplasm of breast Encounter to establish care Hearing loss History of colon cancer Hospital discharge follow-up Hyperlipidemia Iron deficiency anemia Low back pain Neck pain, acute On joint terminal attack controller drug therapy Osteoporosis Personal history of nicotine dependence Wears hearing aid in both ears Surgical History Surgical History History of bilateral knee replacement History of bowel resection Laparoscopic low anterior resection in 2016 History of total bilateral knee replacement S/P appendectomy Family History Family History (Updated 03/27/21 @ 23:36 by Sita Miller RN) Father Heart disease Mother Diabetes mellitus Opioid abuse Hypertension Social History Social History Smoking status: Former smoke
[2021-03-28 08:20] LABS: Hematocrit 36.9 % (37.0-47.0); Hemoglobin 12.1 g/dL (12.0-15.0); Mean Corpuscular HGB Conc 32.8 g/dl (32-36); Mean Corpuscular Hemoglobin 27.9 pg (26-34); Mean Corpuscular Volume 85.2 fl (80-100); Mean Platelet Volume 9.4 fl (7.4-10.4); Platelet Count Result 238 k/mm3 (150-375); Red Blood Count 4.33 M/mm3 (4.2-5.4); Red Cell Distribution Width 13.3 % (11.5-14.5); White Blood Count 13.6 K/mm3 (4.5-10.0)
[2021-03-28 08:42] LABS: Atypical Lymphocytes Present; Monocytes Absolute Manual 0.54 K/mm3 (0.1-0.90); Monocytes Percent Manual 4 % (3-9); Neutrophils Percent Manual 57 % (46-73); Platelet Estimate Adequate (Adequate); Total Cells Counted 100
[2021-03-28 08:46] LABS: Glucose Point of Care 154 mg/dl (65-105)
[2021-03-28 08:48] LABS: Alanine Aminotransferase 26 U/L (4-35); Albumin Level 4.1 g/dL (3.5-5.1); Alkaline Phosphatase 56 U/L (38-126); Anion Gap 8 mmol/L (8-16); Aspartate Amino Transferase 28 U/L (14-36); Bilirubin,Total 1.2 mg/dL (0.2-1.3); Blood Urea Nitrogen 16 mg/dL (7-17); Calcium 9.1 mg/dL (8.4-10.2); Carbon Dioxide 31 mmol/L (22-30); Chloride 95 mmol/L (98-107); Estimated CRCL calculation 67 ml/min; Estimated Glomerular Filt Rate > 60; Glucose 174 mg/dL (65-110); Potassium 3.6 mmol/L (3.4-5.0); Sodium 134 mmol/L (137-145)
[2021-03-28] MEDS: nadoloL 20 MG TABLET PO ×2 (09:49→18:22)
[2021-03-28] MEDS: FERROUS SULFATE 324 MG TABLET PO ×2 (09:49→18:23)
[2021-03-28] MEDS: metFORMIN HCL 500 MG TABLET 1000 MG PO ×2 (09:49→18:23)
[2021-03-28] MEDS: PANTOPRAZOLE 40 MG TABLET PO (09:49)
[2021-03-28] MEDS: ASPIRIN 81 MG ENTERIC TABLET PO (09:49)
[2021-03-28] MEDS: FOLIC ACID 1 MG TABLET PO (09:49)
[2021-03-28] MEDS: GLIMEPIRIDE 1 MG TABLET PO (09:49)
[2021-03-28] MEDS: MULTIVITAMINS /C LUTEIN (CENTRUM SILVER) TABLET *BKC 1 TAB PO (09:49)
[2021-03-28] MEDS: lisinopriL 20 MG TABLET PO (09:49)
[2021-03-28] MEDS: OMEGA 3 POLYUNSAT FATTY ACIDS 1 GM CAP 2 GM PO ×2 (09:49→18:22)
--- NOTE | 2021-03-28 12:04 | PM.IMPN ---
Progress Note: A&P Assessment and Plan (1) Acute respiratory distress: Code(s): R06.03 - Acute respiratory distress Status: Acute Assessment and Plan: Patient received Versed while undergoing cataract surgery. In the ED, she was hypoxic required BiPAP support. She was noted to have pulmonary edema treated with Lasix. She has improvement. Wean O2 as tolerated. (2) Pulmonary edema: Qualifiers: Chronicity: acute Qualified Code(s): J81.0 - Acute pulmonary edema Code(s): J81.1 - Chronic pulmonary edema Status: Acute Assessment and Plan: Patient presents with SOB. CXR showing bilateral diffuse increased interstitial pattern with peribronchial cuffing and peripheral Aparna B-lines consistent with mild pulmonary edema. BNP 1790. COVID negative. Etiology unclear but consider reaction to Versed, HTN emergency and/or aspiration. Lasix x1 given. Still with rhonchi so will repeat. Echocardiogram ordered and is pending. Repeat CXR in the morning. Wean O2 as toelrated. (3) Cataract: Qualifiers: Cataract type: unspecified Laterality: unspecified laterality Qualified Code(s): H26.9 - Unspecified cataract Code(s): H26.9 - Unspecified cataract Status: Acute Assessment and Plan: Left cataract removed 12/26/20 and right performed 03/27/21. Continue to monitor (4) HTN (hypertension): Qualifiers: Hypertension type: unspecified Qualified Code(s): I10 - Essential (primary) hypertension Code(s): I10 - Essential (primary) hypertension Status: Acute Assessment and Plan: Patient's blood pressure was reviewed on 03/28 Blood pressure remains elevated at times. Will continue current medications with Lisinopril and Nadolol. Add Norvasc of still needs better BP control (5) DM type 2 (diabetes mellitus, type 2): Qualifiers: Diabetes mellitus complication status: without complication Diabetes mellitus ferry terminal agent insulin use: without ferry terminal agent use Qualified Code(s): E11.9 - Type 2 diabetes mellitus without complications Code(s): E11.9 - Type 2 diabetes mellitus without complications Status: Chronic Assessment and Plan: A1c 6.4 in December. The patient's blood glucose was reviewed on 03/28 Glucose remains reasonably well controlled. Continue AccuCheks covering with sliding scale. Hypoglycemia protocol available as needed. Continue current medications. (6) Closed supracondylar fracture of right elbow: Qualifiers: Encounter type: initial encounter Qualified Code(s): S42.411A - Displaced simple supracondylar fracture without intercondylar fracture of right humerus, initial encounter for closed fracture Code(s): S42.411A - Displaced simple supracondylar fracture without intercondylar fracture of right humerus, initial encounter for closed fracture Status: Inactive Assessment and Plan: Patient had a fall injuring her right elbow. Xray 02/07/21 showing nondisplaced transverse supracondylar fracture of distal humerus. She has recovered well. She is able to perform ADLs without problem (7) DVT prophylaxis: Code(s): Z29.9 - Encounter for prophylactic measures, unspecified Status: Acute Assessment and Plan: SCDs Subjective Date/time seen: 03/28/21 12:04 Interval history: 75yo female with HTN and DM here for SOB. During surgery, patient was treated with 2 mg of Versed. Patient states that she then began developing anxiety and shortness of breath. Upon arrival to the ED, patient with SpO2 78 to 81% on room air. Patient feels better. Not on home O2. No hx of COPD or asthma. Quite smoking 25 yrs ago after 18pack year hx. No chest pain prior to her surgery. UTD on COVID and flu vaccine. Exam Narrative: AF 98.8 175/63 75 14 96% 2L Gen - NARD HEENT - right eye dressing clean and dry Chest - bibasilar inspiratory crackles. nml RR CV - RRR S1/S2. Tele heidy
[2021-03-28 12:41] LABS: Glucose Point of Care 161 mg/dl (65-105)
[2021-03-28] MEDS: FUROSEMIDE INJ 40 MG/4 ML VIAL IV PUSH (13:26)
[2021-03-28] MEDS: CYANOCOBALAMIN 1,000 MCG TABLET 1000 MCG PO (13:26)
[2021-03-28 17:07] LABS: Glucose Point of Care 113 mg/dl (65-105)
[2021-03-28] MEDS: NIACIN SA 500 MG TABLET PO (22:15)
[2021-03-28] MEDS: ATORVASTATIN 40 MG TABLET PO (22:15)
[2021-03-29] VITALS (9 sets, daily range): BP systolic 142–151; BP diastolic 63–70; PULSE 64–93; RESP 16–18; TEMP 36.4–36.9; O2SAT 93–99
[2021-03-29 04:47] LABS: Hemoglobin 12.2 g/dL (12.0-15.0); Mean Corpuscular Hemoglobin 28.7 pg (26-34); Mean Corpuscular Volume 87.1 fl (80-100); Mean Platelet Volume 9.3 fl (7.4-10.4); Platelet Count Result 193 k/mm3 (150-375); Red Blood Count 4.25 M/mm3 (4.2-5.4); Red Cell Distribution Width 13.4 % (11.5-14.5); White Blood Count 14.1 K/mm3 (4.5-10.0)
[2021-03-29 05:09] LABS: Anion Gap 9 mmol/L (8-16); Blood Urea Nitrogen 16 mg/dL (7-17); Calcium 9.3 mg/dL (8.4-10.2); Carbon Dioxide 31 mmol/L (22-30); Chloride 94 mmol/L (98-107); Estimated CRCL calculation 57 ml/min; Estimated Glomerular Filt Rate > 60; Glucose 137 mg/dL (65-110); Sodium 134 mmol/L (137-145)
[2021-03-29] MEDS: nadoloL 20 MG TABLET PO (09:10)
[2021-03-29] MEDS: GLIMEPIRIDE 1 MG TABLET PO (09:10)
[2021-03-29] MEDS: lisinopriL 20 MG TABLET PO (09:11)
[2021-03-29] MEDS: FOLIC ACID 1 MG TABLET PO (09:11)
[2021-03-29] MEDS: PANTOPRAZOLE 40 MG TABLET PO (09:11)
[2021-03-29] MEDS: metFORMIN HCL 500 MG TABLET 1000 MG PO (09:11)
[2021-03-29] MEDS: OMEGA 3 POLYUNSAT FATTY ACIDS 1 GM CAP 2 GM PO (09:11)
[2021-03-29] MEDS: FERROUS SULFATE 324 MG TABLET PO (09:12)
[2021-03-29] MEDS: ASPIRIN 81 MG ENTERIC TABLET PO (09:12)
[2021-03-29] MEDS: CYANOCOBALAMIN 1,000 MCG TABLET 1000 MCG PO (09:12)
[2021-03-29] MEDS: MULTIVITAMINS /C LUTEIN (CENTRUM SILVER) TABLET *BKC 1 TAB PO (09:12)
[2021-03-29] MEDS: ACETAMINOPHEN 500 MG TABLET PO (09:21)
--- NOTE | 2021-03-29 10:35 | PM.DS ---
DS: Admitting Diagnosis Discharge Date 03/29/21 Admitting Diagnosis Shortness of breath DS: Discharge Diagnosis Discharge Diagnosis (1) Acute respiratory distress: Code(s): R06.03 - Acute respiratory distress Status: Acute Assessment and Plan: Patient received Versed while undergoing cataract surgery. In the ED, she was hypoxic required BiPAP support. She was noted to have pulmonary edema treated with Lasix. She received lasix intermittently with good results. She was weaned to nasal cannula then to room air without difficulty. Related to CHF. (2) Diastolic CHF: Code(s): I50.30 - Unspecified diastolic (congestive) heart failure Status: Acute Assessment and Plan: Patient presents with SOB. CXR showing bilateral diffuse increased interstitial pattern with peribronchial cuffing and peripheral Aparna B-lines consistent with mild pulmonary edema. BNP 1790. COVID negative. She was treated with intermittent doses of Lasix with good response. Echo showing EF 55-60% with Grade III diastolic dysfunction and moderate-severe MR. BP was 169/122 on admission so could be a component of HTN urgency. Echo also showing basal inferior wall and basal to mid posterior wall hypokinesis. Consider underlying CAD but patietn without chest/arm/neck/back pain, completely normal EKG and legative Trop x3. Repeat CXR showing nearly complete resolution of congestive changes and pulmonary edema since 03/27/2021. These findings discussed with patient and all questions answered. She will go home with Lasix prn for weight gain and she was instructed to do daily weights. Discussed with cardiolgy and PCP. (3) Mitral regurgitation: Code(s): I34.0 - Nonrheumatic mitral (valve) insufficiency Status: Acute Assessment and Plan: As above (4) Cataract: Qualifiers: Cataract type: unspecified Laterality: unspecified laterality Qualified Code(s): H26.9 - Unspecified cataract Code(s): H26.9 - Unspecified cataract Status: Acute Assessment and Plan: Left cataract removed 12/26/20 and right performed 03/27/21. Healing well. (5) HTN (hypertension): Qualifiers: Hypertension type: unspecified Qualified Code(s): I10 - Essential (primary) hypertension Code(s): I10 - Essential (primary) hypertension Status: Acute Assessment and Plan: Patient's blood pressure was monitored closely and was elevated at times. We continued current medications with Lisinopril and Nadolol. Further titration of her medications if needed. Patient to check BP at home. (6) DM type 2 (diabetes mellitus, type 2): Qualifiers: Diabetes mellitus retirement insulin use: without retirement use Diabetes mellitus complication status: without complication Qualified Code(s): E11.9 - Type 2 diabetes mellitus without complications Code(s): E11.9 - Type 2 diabetes mellitus without complications Status: Chronic Assessment and Plan: A1c 6.4 in December. The patient's blood glucose was monitored closely with AccuCheks covering with sliding scale. Hypoglycemia protocol was available as needed. (7) Closed supracondylar fracture of right elbow: Qualifiers: Encounter type: initial encounter Qualified Code(s): S42.411A - Displaced simple supracondylar fracture without intercondylar fracture of right humerus, initial encounter for closed fracture Code(s): S42.411A - Displaced simple supracondylar fracture without intercondylar fracture of right humerus, initial encounter for closed fracture Status: Inactive Assessment and Plan: Patient had a fall injuring her right elbow. Xray 02/07/21 showing nondisplaced transverse supracondylar fracture of distal humerus. She has recovered well. She is able to perform ADLs without problem DS: Summary Hospital Course Reason for hospitalization: 75yo female with HTN and DM here for SOB. During ca
== END 2021-03-29 12:43 | disposition home or self-care (01) | DRG 189 ==
LOC: ANHED 14:40 → ANHIMU 18:47
PROVIDERS: Admitting Provider Internal Medicine; Emergency Provider Emergency Medicine; PCP Internal Medicine; Visit Provider Internal Medicine
DX: J81.0 Acute pulmonary edema (principal); J81.1 Chronic pulmonary edema; I11.0 Hypertensive heart disease with heart failure; I50.31 Acute diastolic (congestive) heart failure; I16.0 Hypertensive urgency; T42.4X5A Adverse effect of benzodiazepines, initial encounter; D50.9 Iron deficiency anemia, unspecified; E78.5 Hyperlipidemia, unspecified; E11.9 Type 2 diabetes mellitus without complications; H91.90 Unspecified hearing loss, unspecified ear; I34.0 Nonrheumatic mitral (valve) insufficiency; S42.414D Nondisplaced simple supracondylar fracture without intercondylar fracture of right humerus, subsequent encounter for fracture with routine healing; W19.XXXD Unspecified fall, subsequent encounter; Z20.822 Contact with and (suspected) exposure to COVID-19; Z87.891 Personal history of nicotine dependence; Z96.653 Presence of artificial knee joint, bilateral; Z79.899 Other long term (current) drug therapy; Z85.038 Personal history of other malignant neoplasm of large intestine; Z90.49 Acquired absence of other specified parts of digestive tract; Z79.82 Long term (current) use of aspirin; Z79.84 Long term (current) use of oral hypoglycemic drugs; Z88.0 Allergy status to penicillin; Z98.41 Cataract extraction status, right eye; Z98.42 Cataract extraction status, left eye
CPT/HCPCS: 36415; 36600; 71045; 80048; 80053; 82805; 82948; 83880; 84484; 85025; 85027; 93005; 93306; 94640; 96372; 96374; 96375; 99285; A9270; C8929; C9803; G0378; J0171; J1200; J1940; Q9957; U0003; U0005

== ENCOUNTER 2021-05-08 11:20 | Outpatient (CLI) | payer MEDICARE, OTHER, SELFPAY ==
--- NOTE | ~2021-05-08 | MM_ITS ---
EXAMINATION: MM screening [facility] BI w bernie HISTORY: Screening mammogram TECHNIQUE: Craniocaudal and mediolateral oblique 3-D tomosynthesis images were obtained and synthetic 2-D images were generated. CAD analysis was submitted and interpreted. COMPARISON: 04/11/2020, 04/07/2019 BREAST PARENCHYMAL COMPOSITION: There are scattered areas of fibroglandular density. FINDINGS: Scattered benign-appearing calcifications are present. There is no evidence of suspicious m ass, calcification, or architectural distortion to suggest malignancy in either breast. There has bee n no suspicious interval change. IMPRESSION: 1. No mammographic evidence of malignancy. 2. Recommend routine screening mammography in one year. BI-RADS Category 2: Benign finding(s). Reviewed, dictated and finalized at location A. PROJECT MANAGER
== END 2021-05-08 11:21 | disposition home or self-care (01) ==
PROVIDERS: PCP Internal Medicine; Visit Provider Internal Medicine
DX: Z12.31 Encounter for screening mammogram for malignant neoplasm of breast (principal)
CPT/HCPCS: 77063; 77067

== ENCOUNTER 2021-05-21 07:58 | Outpatient (CLI) | payer MEDICARE, OTHER, SELFPAY ==
[2021-05-21 08:47] LABS: Anion Gap 6 mmol/L (8-16); Blood Urea Nitrogen 10 mg/dL (7-17); Calcium 9.2 mg/dL (8.4-10.2); Carbon Dioxide 32 mmol/L (22-30); Chloride 94 mmol/L (98-107); Cholesterol 111 mg/dL (0-200); Estimated Glomerular Filt Rate > 60; Glucose 167 mg/dL (65-110); HDL Direct 37 mg/dL; Potassium 4.2 mmol/L (3.4-5.0); Sodium 132 mmol/L (137-145); Triglycerides 79 mg/dL (<150)
[2021-05-21 08:51] LABS: Hemoglobin A1C 6.5 % (<5.7)
[2021-05-21 08:57] LABS: LDL Cholesterol Direct 50 mg/dL
[2021-05-21 09:35] LABS: Vitamin D 25 Hydroxy 78.8 ng/mL
[2021-05-24 04:08] LABS: Homocysteine 7.7 umol/L (<10.4)
== END 2021-05-21 07:59 | disposition home or self-care (01) ==
LOC: ANHLAB 08:04
PROVIDERS: PCP Internal Medicine; Visit Provider Internal Medicine
DX: E11.9 Type 2 diabetes mellitus without complications (principal); I10 Essential (primary) hypertension; R79.89 Other specified abnormal findings of blood chemistry; E78.2 Mixed hyperlipidemia; E55.9 Vitamin D deficiency, unspecified
CPT/HCPCS: 36415; 80048; 80061; 82306; 83036; 83090

== ENCOUNTER → 2021-05-31 01:52 | Day surgery (SDC) | payer MEDICARE, OTHER, SELFPAY ==
[2021-05-30 17:07] VITALS: BMI 26.1
--- NOTE | 2021-05-31 | ECHO_ITS ---
Patient Info Name: Isabela Moe Age: 75 years : 1945 Gender: Female Ht: 61 in Wt: 138 lbs BSA: 1.66 m2 HR: 68 bpm Heart Rhythm: Sinus Rhythm Exam Date: 05/31/2021 2:10 PM Exam Location: [facility] Pulmonary Patient Status: Outpatient Admit Date: 05/31/2021 Staff Ordering Physician: Jn Jett MD Slag Mixer: Johan Madrigal RDCS, RT Attending Provider: Jn Jett MD Exam Type: CA echo transesophageal Study Info Complete two-dimensional, color flow and Doppler transesophageal study is performed. Summary 1. Left ventricular dilation with moderate global systolic dysfunction. 2. Marked left atrial enlargement. 3. Moderate to severe mitral regurgitation appears to result from annular dilation. 4. Normal aortic valve. Left Ventricle Left ventricular chamber dimension is moderately enlarged. Left ventricular systolic function is moderately reduced with an ejection fraction by Biplane Method of Discs of Empty. Right Ventricle Right ventricular chamber dimension is normal. Left Atria Left atrial chamber dimension is severely enlarged. Right Atria Right atrial chamber dimension is normal. Atrial Appendage There is no thrombus visualized in the left atrial appendage. Aortic Valve The aortic valve is normal. Pulmonic Valve The pulmonic valve is normal. Mitral Valve The mitral valve has normal leaflets. There is moderate to severe mitral valve regurgitation. Tricuspid Valve The tricuspid valve leaflets are normal. Pericardium/Pleural The pericardium appears normal. Inferior Vena Cava Not well visualized inferior vena cava with Empty collapse upon inspiration consistent with Empty right atrial pressure, Empty. Aorta The aortic root size at the sinus of Valsalva is normal. Report Signatures
[2021-05-31 12:55] VITALS: BP 182/86; PULSE 66; RESP 22; TEMP 36.6; O2SAT 98
[2021-05-31 12:59] VITALS: BMI 26.2
[2021-05-31 14:40] VITALS: BP 181/73; PULSE 68; RESP 14; O2SAT 98
--- NOTE | 2021-05-31 14:43 | P.PCNCC_ITS ---
Cardiac Cath Procedure Note Date of procedure:: 05/31/21 Performing physician:: Jn Jett MD Indication:: Mitral valve regurgitation Brief clinical history:: This is a 75-year-old woman referred as an outpatient because of mitral valve disease. She was recently hospitalized with some dyspnea echocardiogram was read as showing significant mitral regurgitation for further evaluation of this PAULINO has been arranged for today. Procedure Procedure performed:: Transesophageal echocardiogram Sedation/Medication given:: Per the anesthesia service patient received IV propofol Estimated blood loss:: No blood loss Procedure note:: The patient was brought to the GI lab in the postabsorptive state placed in the supine position. IV access was placed. She had or pharyngeal benzocaine used for topical anesthesia. She was then sedated with the Anesthesia Service. IV propofol was used. She had the esophagus intubated easily with the PAULINO probe and multiplane images were performed of heart. Following completion of the PAULINO the probe was withdrawn and the patient was recovered from sedation in the GI lab. She will be taken to the holding area for post recovery prior to discharge to home there were no apparent procedural complications. Findings:: The left atrium is markedly dilated. The atrium is free of evidence of thrombus the appendage is dilated without thrombus. The mitral valve leaflets anatomically look unremarkable. There thin and pliable there is no evidence of prolapse there are no disrupted chordal elements. The annulus appears to be significantly dilated. The left ventricle is moderately enlarged also with mild to moderate global systolic dysfunction. Ejection fraction appears to be about 40%. The aortic valve was trileaflet thin and pliable. Aortic root dimension is normal. The right-sided chambers are not enlarged of normal appearance. The tricuspid valve appears normal the interatrial septum appears to be normal. Color Doppler interrogation of the mitral valve with PAULINO probe but demonstrates a central jet of MR that is the four-chamber projection appears to be severe in the two-chamber projection is moderate. This is a centrally directed jet most consistent with annular dilation. Conclusion:: Significant mitral valve regurgitation resulting from LV dysfunction and mitral valve annular enlargement patient has moderate to severe MR as result of this does not appear to be due to functional leaflet abnormality or disrupted chordal elements. Jn Jett MD [facility]
[2021-05-31 14:46] VITALS: BP 174/83; PULSE 73; RESP 12; O2SAT 92
[2021-05-31 15:00] VITALS: BP 160/70; PULSE 67; RESP 12; O2SAT 97
[2021-05-31 15:08] VITALS: BP 152/65; PULSE 67; RESP 12; O2SAT 95
[2021-05-31 15:20] VITALS: BP 148/66; PULSE 74; RESP 18; O2SAT 98
== END | disposition home or self-care (01) ==
PROVIDERS: PCP Internal Medicine; Visit Provider Specialist
PROC: (CPT 93312; principal; 2021-05-31 14:00)
DX: I34.0 Nonrheumatic mitral (valve) insufficiency (principal); I10 Essential (primary) hypertension; E78.00 Pure hypercholesterolemia, unspecified; E11.9 Type 2 diabetes mellitus without complications; D64.9 Anemia, unspecified; Z79.82 Long term (current) use of aspirin; Z79.84 Long term (current) use of oral hypoglycemic drugs
CPT/HCPCS: 93312; 93320; 93325; J2704

== ENCOUNTER 2021-06-28 00:55 | Day surgery (SDC) | payer MEDICARE, OTHER, SELFPAY ==
[2021-06-28] VITALS (43 sets, daily range): BP systolic 93–182; BP diastolic 43–83; PULSE 53–76; RESP 10–20; TEMP 35.9–36.6; O2SAT 81–99; BMI 25.8
[2021-06-28 09:25] LABS: Basophils Absolute Auto 0.1 K/mm3 (0.0-0.1); Basophils Percent Auto 0.4 % (0.2-1.2); Hematocrit 44.5 % (37.0-47.0); Hemoglobin 14.6 g/dL (12.0-15.0); Immature Granulocyte Absolute 0.05 K/mm3 (0.00-0.031); Immature Granulocyte Percent A 0.4 % (0-0.5); Lymphocytes Absolute Auto 3.47 K/mm3 (0.9-3.2); Lymphocytes Percent Auto 27.1 % (18.3-44.2); Mean Corpuscular HGB Conc 32.8 g/dl (32-36); Mean Corpuscular Hemoglobin 28.6 pg (26-34); Mean Corpuscular Volume 87.3 fl (80-100); Mean Platelet Volume 10.5 fl (7.4-10.4); Monocytes Absolute Auto 0.5 K/mm3 (0.1-0.6); Monocytes Percent Auto 3.5 % (2.6-8.5); Neutrophils Absolute Auto 8.8 K/mm3 (1.3-6.7); Neutrophils Percent Auto 68.6 % (45.5-73.1); Platelet Count Result 326 k/mm3 (150-375); White Blood Count 12.8 K/mm3 (4.5-10.0)
[2021-06-28] MEDS: SODIUM CHLORIDE 0.9% IV 500 ML 100 ML IV CONT (09:30)
[2021-06-28 09:35] LABS: Prothrombin Time 12.4 Seconds (11.1-14.7)
[2021-06-28 10:02] LABS: Anion Gap 9 mmol/L (8-16); Blood Urea Nitrogen 13 mg/dL (7-17); Calcium 8.9 mg/dL (8.4-10.2); Carbon Dioxide 29 mmol/L (22-30); Chloride 95 mmol/L (98-107); Estimated CRCL calculation 61 ml/min; Estimated Glomerular Filt Rate > 60; Glucose 294 mg/dL (65-110); Potassium 4.1 mmol/L (3.4-5.0); Sodium 133 mmol/L (137-145)
--- NOTE | 2021-06-28 10:10 | WPDMODSED ---
Moderate Sedation Note-Pt Data Patient Data Diagnosis: Mitral regurgitation with left ventricular systolic dysfunction Present Complaint: no complaints today Procedure to be performed/Plan: left heart catheterization Allergies Allergy/AdvReac Type Severity Reaction Status Date / Time midazolam [From Versed] Allergy Severe Other Verified 06/28/21 09:21 shrimp Allergy Intermediate Hives Verified 06/28/21 09:21 cucumber AdvReac Severe gas Verified 06/28/21 09:21 erythromycin base AdvReac Mild upset Verified 06/28/21 09:21 [From E-Mycin] stomach morphine AdvReac Mild dry heaves Verified 06/28/21 09:21 Penicillins AdvReac Mild dry heaves Verified 06/28/21 09:21 Home Medications Medication Instructions Recorded Confirmed Type aspirin 81 mg tablet,delayed 81 mg PO DAILY 01/20/19 06/28/21 History release calcium carbonate 500 mg-vitamin 1 tablet PO DAILY 01/20/19 06/28/21 History D3 15 mcg (600 unit) tablet mecobalamin (vitamin B12) 1,000 1,000 mcg SUBLINGUAL HS 05/03/19 06/28/21 History mcg disintegrating tablet,sublingual niacin 500 mg capsule,extended 500 mg PO HS 05/03/19 06/28/21 History release Adult Multivitamin (w-lutein) 1 tablet PO DAILY 10/10/19 06/28/21 History acetaminophen 500 mg tablet 500 mg PO Q6H PRN 10/20/19 06/28/21 History ferrous sulfate 325 mg (65 mg 325 mg PO BID tablet 03/23/20 06/28/21 History iron) tablet atorvastatin 40 mg tablet 40 mg PO DAILY #90 tablet 10/05/20 06/28/21 Rx Vascepa 1 gram capsule 2 g PO BID #360 cap NS 10/22/20 06/28/21 Rx sitagliptin 100 mg tablet 100 mg PO DAILY #90 tablet 01/08/21 06/28/21 Rx blood sugar diagnostic #100 each 01/09/21 06/28/21 Rx folic acid 1 mg PO DAILY 03/27/21 06/28/21 History glimepiride 1 mg PO DAILY 03/27/21 06/28/21 History lisinopril 20 mg PO BID 03/27/21 06/28/21 History furosemide [Lasix] 20 mg PO DAILY PRN #30 tablet 03/29/21 06/28/21 Rx nadolol 40 mg tablet 40 mg PO BID 90 Days #180 tablet 05/10/21 06/28/21 Rx metformin 1,000 mg PO BID 05/30/21 06/28/21 History omeprazole 20 mg PO DAILY 05/30/21 06/28/21 History Benadryl 25 mg PO ONCE 06/28/21 06/28/21 History prednisone 1 tablet PO ONCE 06/28/21 06/28/21 History Current Medications: Active Medications Sodium Chloride (Normal Saline Iv) 500 mls @ 100 mls/hr IV CONT .Q5H KAYLYNN Sedation/Anesthesia: No previous sedation/anesthesia problems (including family history). [facility]LY [facility] Past Medical History Medical History (Updated 06/04/21 @ 11:20 by Hamida Carlson) Abdominal pain Benign essential hypertension BMI 23.0-23.9, adult BMI 24.0-24.9, adult Cataract Colon cancer screening DM type 2 (diabetes mellitus, type 2) Elevated homocysteine Elevated LFTs Encounter for Medicare annual wellness exam Encounter for routine adult health examination without abnormal findings Encounter for screening mammogram for malignant neoplasm of breast Encounter to establish care Hearing loss History of colon cancer Hospital discharge follow-up Hyperlipidemia Hypokinesis Iron deficiency anemia Low back pain Neck pain, acute 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 Osteoporosis Personal history of nicotine dependence Post-menopausal Wears hearing aid in both ears Surgical History Surgical History History of bilateral knee replacement History of bowel resection Laparoscopic low anterior resection in 2016 History of total bilateral knee replacement S/P appendectomy Family History Family History Father Heart disease Mother Diabetes mellitus Opioid abuse Hypertension Social History Social History Smoking status: Never smoker Tobacco type: cigarettes Second hand tobacco smoke exposure: No Additional smoking assessment comments: quit 1995 Alcohol intake: never Substance use: never Substance use type: does not use
--- NOTE | 2021-06-28 10:46 | WPDCARDPROC ---
Cardiac Cath Procedure Note Date of procedure:: 06/28/21 Performing physician:: Jn Jett MD Indication:: Mitral regurgitation and left ventricular systolic dysfunction Brief clinical history:: this is a 75-year-old lady with hypertension and diabetes who recently was found to have LV systolic dysfunction and mitral regurgitation because she was experiencing shortness of breath. The patient is admitted for angiography to investigate LV systolic dysfunction. Procedure Procedure performed:: Left ventriculogram coronary angiogram Sedation/Medication given:: fentanyl 50 mg Access site:: right femoral artery Estimated blood loss:: 25 cc Procedure note:: patient was brought to the cardiac catheterization lab in the postabsorptive state where the right femoral triangle was prepared and draped in the usual fashion. Anesthesia was provided with 1% lidocaine infiltrated locally. Using the modified Seldinger technique a 5 Zimbabwean sheath was placed into the right femoral artery and left heart catheterization was carried out. I used a 5 Zimbabwean angled pigtail catheter to measure left-sided hemodynamics and to inject the left ventriculogram in the our AO projection. Following this these a standard 5 [place]an FL4 catheter to engage and inject the left coronary artery and then a 5 [place]an JR4 catheter to engage and inject the right coronary artery. The cineangiograms were reviewed and the case was terminated. An angiogram was do not of the femoral artery through the sheath and the decision was made to remove the sheath with direct manual compression. 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 Findings:: Hemodynamics: Central aortic pressure is 205 86 left ventricle 205/80 end-diastolic 21, no systolic gradient across the aortic valve upon pullback. Left ventricle: The LV is moderately enlarged the anterior wall contracts relatively well as does the apex the inferior wall is hypodynamic the posterior basal segment is akinetic. The global ejection fraction is visually estimated to be 35-40%. Prior to any angiography the left and right coronary arteries are noted to be heavily calcified vessels. The left main coronary artery is medium caliber vessel with approximately 50% mid stenosis. This not appear to be flow-limiting there was no pressure dampening despite the catheter being distal to this lesion. Left anterior descending is a medium caliber vessel and has mild proximal disease. There is a large 1st diagonal branch which is patent. There is a 80% stenosis in the LAD itself just prior to this diagonal and a 70-80% stenosis in the 1st portion of the diagonal itself. Just after this diagonal branch takes its origin the LAD is 100% occluded with antegrade bridging collaterals distal to this. The distal LAD is angiographically very small there is flow down to the apex. It is obviously under filled as it is a collateralized vessel. The circumflex is a moderate caliber artery which is also significantly calcified. The proximal marginal branches have mild luminal irregularities but no significant lesions are seen. After the 2nd OM there is 100% occlusion of the bronchus/ B portion of the circumflex and then there is a distal posterior branch that is also collateralized. This receives antegrade collaterals from the patent portion of the circumflex... The right coronary artery is dominant to the posterior circulation it is heavily calcified. The posterolateral vessels are seen to be totally occluded that are collateralized with [id number] collateral filling. There is 90% stenosis in the proximal segment of the right coronary artery followed by diffuse 70-80% stenosis into the 2nd portion. The RPDA is receiving antegrade flow and has mild luminal irregularities in it. The RPL branches as described above are collateralized and appeared to be occluded it a
[2021-06-28] MEDS: FUROSEMIDE INJ 100 MG/10 ML VIAL 80 MG IV PUSH (11:00)
[2021-06-28] MEDS: NITROGLYCERIN SL 0.4 MG TABLET 0.8 MG SUBLINGUAL (11:00)
[2021-06-28 11:17] LABS: Glucose Point of Care 286 mg/dl (65-105)
--- NOTE | 2021-06-28 12:05 | SUR.PHASEII ---
1057--patient arrived back to [facility] post procedure to room 7. patient reports sob. rhonchi and infiltrates noted upon auscultation. spo2 low 80%. md notified and came to see patient right away. md gave v/o for 2 ntg tablets sl and 80mg iv lasix. urinary ayers catheter inserted. patient became diaphoretic and felt sleepy. BP noted to be 126/65. patient placed in Trendelenburg. blood sugar checked and hyperglycemic. patient's symptoms subsided. bed flattened. 1121-- dressing removed to prepare for sheath removal, small hematoma noted around sheath, around [id number]. sheath removed and manual pressure held x25 min hemostasis obtained and no hematoma noted. 1200--patient's sp02 is between 82-93. switched over to a nasal canula and respiratory called. 1210- Latisha vigil NP called to give update on patient. will try to titrate patient's o2 needs. vss
--- NOTE | 2021-06-28 13:44 | SUR.PHASEII ---
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 c/o warm wet groin. upon inspection patient's dressing is saturated with blood. Immediate pressure held and patient's HOB flat. hematoma under hand holding pressure felt about 3inx 3in. 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 vss manual pressure held x30 min until hemostasis obtained. transparent dressing applied. Pressure dressing applied with tensoplast tape and gauze. patient education given. md was in department and checked on patient. he would like to change her overnight status from medr to imu.
--- NOTE | 2021-06-28 14:26 | SUR.PHASEII ---
Hemostasis achieved at 1415, pt skin cleaned of blood, gown and bedding changed, pressure dressing applied due to pt intermittently coughing. Side rails up x 2, call light within reach, will continue to monitor VS q 15x 4 and assess for bleeding. Dr. Jett in department at the time of bleeding from groin, notified and bed request changed to IMU, charhouse worker notified. Pt resting comfortably in bed, VSS, NAD noted.
--- NOTE | 2021-06-28 14:30 | SUR.PHASEII ---
Addendum entered by Elizabeth Charles RN 06/28/21 15:06: amend time to 1330 Original Note: dr hurley in to check on patient. updated on patient's vs and o2 requirements. md spent time speaking with patient then called her primary doc and her son to update.
--- NOTE | 2021-06-28 14:58 | PC.NURSE ---
Patient now being charted on in [facility] extended recovery
--- NOTE | 2021-06-28 16:34 | PC.NURSE ---
report called to imu rn. patient vss. son updated on new bed
--- NOTE | 2021-06-28 16:47 | PC.NURSE ---
This patient, Isabela Moe, was received from [facility] on 06/28/21 at 1645. Patient/family oriented to unit policies and routines
[2021-06-28 19:56] LABS: Glucose Point of Care 422 mg/dl (65-105)
[2021-06-28] MEDS: lisinopriL 20 MG TABLET PO (20:57)
[2021-06-28] MEDS: INSULIN HUMAN REGULAR (*BKC) 100 UNITS/ML 10 UNITS IV PUSH (20:57)
[2021-06-28] MEDS: FERROUS SULFATE 324 MG TABLET PO (20:57)
[2021-06-28] MEDS: metFORMIN HCL 500 MG TABLET 1000 MG PO (20:57)
[2021-06-28] MEDS: CYANOCOBALAMIN 1,000 MCG TABLET 1000 MCG PO (20:57)
[2021-06-28] MEDS: NIACIN SA 500 MG TABLET PO (20:57)
[2021-06-28] MEDS: carvediloL 25 MG TABLET PO (20:57)
[2021-06-28 23:49] LABS: Glucose Point of Care 239 mg/dl (65-105)
[2021-06-29] VITALS (9 sets, daily range): BP systolic 111–112; BP diastolic 42–44; PULSE 61–78; RESP 12–20; TEMP 36.1–36.2; O2SAT 92–96
[2021-06-29 04:11] LABS: Glucose Point of Care 157 mg/dl (65-105)
--- NOTE | 2021-06-29 07:47 | PM.DS ---
DS: Admitting Diagnosis Discharge Date 06/29/2021 Admitting Diagnosis Mitral valve regurgitation Left ventricular systolic dysfunction DS: Discharge Diagnosis Discharge Diagnosis (1) Ischemic cardiomyopathy: Code(s): I25.5 - Ischemic cardiomyopathy Status: Acute DS: Summary Hospital Course Reason for hospitalization: Diagnostic left heart catheterization Hospital Course: This is a 75-year-old woman recently seen because of shortness of breath found to have mitral valve regurgitation and on PAULINO left ventricular systolic dysfunction. As this was newly diagnosed she was admitted for diagnostic left heart catheterization which was scheduled for the day of admission. She underwent the procedure without complication. She was found to have surprisingly severe three-vessel coronary artery disease. Her left and right coronaries are both heavily calcified vessels. Her left anterior descending has a significant proximal lesion prior to the major diagonal branch and also significant stenosis of the proximal segment of that diagonal. After that vessel the LAD is totally closed with collateral filling distally. Her circumflex vessel is it is mildly diseased proximally and then totally occluded prior to the posterior branch which also receives collateral filling. There is collateral filling to the posterolateral vessels of the right coronary artery. The proximal right coronary artery has high-grade stenosis with antegrade filling into the RPDA. Her left ventricular ejection fraction is about 35% with LV dilatation. She has mitral valve regurgitation because of Nohemi left ventricular enlargement. Following the procedure she was stable. She did have an episode of groin bleeding after she coughed and for that reason was kept in the hospital overnight for further observation. Today she is ambulatory and free of complaints. I did transition her beta-ofelia from nadolol to carvedilol because of the diagnosis of ischemic LV dysfunction. She is potentially a candidate for CABG versus high-risk PCI which would include WELDER APPRENTICE intervention of the LAD as well as of the proximal right coronary artery. In anticipation of this we are will arrange for consultation with Cardiothoracic surgery consult and following discharge as an outpatient. She wishes to receive care at [facility] and will be referred to surgical consult and over there. Today she is a good candidate for discharge Status at Discharge Functional status at discharge: independent ambulation Overall status at discharge: patient is back to baseline Time Spent with Patient Time attestation: Total time spent providing and/or coordinating discharge services: Time spent: Less than 30 minutes Exam Const: General: comfortable and no acute distress HENMT: Mouth: Yes moist mucous membranes Eyes: Sclera: sclerae normal and scleral abnormality Neck: Neck: supple and no JVD Resp: Effort & Inspection: normal respiratory effort Auscultation: clear to auscultation bilaterally Cardio: Rate: regular rate Rhythm: regular rhythm Other: Very soft holosystolic MR murmur at the apex GI: GI Palp: Yes Soft to palpation Auscultation: normal bowel sounds Skin: General skin exam: normal color Neuro: General: gait normal Extrem: General: normal to inspection DS: Data Data Completed and Pending Labs on day of discharge: Labs from last 24 hours 06/29/21 06/28/21 06/28/21 03:42 23:42 19:53 WBC RBC Hgb Hct MCV MCH MCHC RDW Plt Count MPV Immature Gran % (Auto) Neut % (Auto) Lymph % (Auto) [place] % (Auto) Eos % (Auto) Baso % (Auto) Lymph # (Auto) [place] # (Auto) Eos # (Auto) Baso # (Auto) Abs Immat Gran (auto) Absolute Neuts (auto) Absolute Nucleated RBC Nucleated RBC % PT INR Sodium Potassium Chloride Carbon Dioxide Anion Gap BUN Creatinine Estim Creat Clear Ca
[2021-06-29 08:26] LABS: Glucose Point of Care 168 mg/dl (65-105)
[2021-06-29] MEDS: GLIMEPIRIDE 1 MG TABLET PO (08:48)
[2021-06-29] MEDS: FUROSEMIDE 20 MG TABLET PO (08:48)
[2021-06-29] MEDS: FOLIC ACID 1 MG TABLET PO (08:48)
[2021-06-29] MEDS: lisinopriL 20 MG TABLET PO (08:49)
[2021-06-29] MEDS: ASPIRIN 81 MG ENTERIC TABLET PO (08:49)
[2021-06-29] MEDS: carvediloL 25 MG TABLET PO (08:49)
[2021-06-29] MEDS: PANTOPRAZOLE 40 MG TABLET PO (08:49)
[2021-06-29] MEDS: MULTIVITAMINS /C LUTEIN (CENTRUM SILVER) TABLET *BKC 1 TAB PO (08:49)
[2021-06-29] MEDS: ATORVASTATIN 40 MG TABLET PO (08:49)
[2021-06-29] MEDS: metFORMIN HCL 500 MG TABLET 1000 MG PO (09:43)
[2021-06-29] MEDS: FERROUS SULFATE 324 MG TABLET PO (09:43)
== END 2021-06-29 10:25 | disposition home or self-care (01) ==
LOC: ANHCATHLAB 11:33 → ANHCPC 15:26 → ANHIMU 07-23 07:14
PROVIDERS: PCP Internal Medicine; Visit Provider Specialist
PROC: 4A023N7 Measurement of Cardiac Sampling and Pressure, Left Heart, Percutaneous Approach (ICD-10-PCS; CPT 93452; principal; 2021-06-28 10:00)
DX: I34.0 Nonrheumatic mitral (valve) insufficiency (principal); I25.5 Ischemic cardiomyopathy; R06.02 Shortness of breath; E11.9 Type 2 diabetes mellitus without complications; I25.10 Atherosclerotic heart disease of native coronary artery without angina pectoris; I11.9 Hypertensive heart disease without heart failure; E78.00 Pure hypercholesterolemia, unspecified; D64.9 Anemia, unspecified; Z85.038 Personal history of other malignant neoplasm of large intestine; Z79.82 Long term (current) use of aspirin; Z79.84 Long term (current) use of oral hypoglycemic drugs
CPT/HCPCS: 36415; 80048; 82948; 85025; 85610; 93458; A9270; C1887; C1894; J1200; J1644; J1815; J1940; J3010; J7040

== ENCOUNTER 2021-07-15 11:59 | Outpatient (CLI) | payer MEDICARE, OTHER, SELFPAY ==
--- NOTE | ~2021-07-15 | XR_ITS ---
XR sinus min 3V DATE: 07/15/2021 12:39 INDICATION: Nasal drip. Sore throat. Cough. TECHNIQUE: rosa elena Hodgson, lateral and submental vertical views COMPARISON: None FINDINGS: Fluid levels are noted in both maxillary sinuses consistent with bilateral maxillary sinusi tis. The frontal sinuses, ethmoid air cells and sphenoid sinuses appear unremarkable. IMPRESSION: Bilateral maxillary sinus fluid levels consistent with bilateral acute maxillary sinusiti s Reviewed, dictated and finalized at location B. IMPRESSION: Bilateral maxillary sinus fluid levels consistent with bilateral ac tribal maxillary sinusitis
--- NOTE | ~2021-07-15 | XR_ITS ---
EXAMINATION: XR chest 2V 07/15/2021 12:39 INDICATION: Cough PROCEDURE: 2 view chest COMPARISON: 03/29/2021 FINDINGS: The lungs are clear. The cardiomediastinal silhouette is within normal limits. There are no pleural effusions. There is no pneumothorax suspected. IMPRESSION: 1: NO ACUTE CARDIOPULMONARY DISEASE. Reviewed, dictated and finalized at location A.
[2021-07-15 12:49] LABS: Basophils Absolute Auto 0.1 K/mm3 (0.0-0.1); Basophils Percent Auto 0.6 % (0.2-1.2); Eosinophils Absolute Auto 0.1 K/mm3 (0-0.3); Eosinophils Percent Auto 1.1 % (0-4.4); Hemoglobin 12.1 g/dL (12.0-15.0); Immature Granulocyte Absolute 0.05 K/mm3 (0.00-0.031); Immature Granulocyte Percent A 0.5 % (0-0.5); Lymphocytes Absolute Auto 3.92 K/mm3 (0.9-3.2); Lymphocytes Percent Auto 37.8 % (18.3-44.2); Mean Corpuscular HGB Conc 32.7 g/dl (32-36); Mean Corpuscular Hemoglobin 28.3 pg (26-34); Mean Corpuscular Volume 86.4 fl (80-100); Mean Platelet Volume 9.1 fl (7.4-10.4); Monocytes Absolute Auto 0.7 K/mm3 (0.1-0.6); Monocytes Percent Auto 6.4 % (2.6-8.5); Neutrophils Absolute Auto 5.6 K/mm3 (1.3-6.7); Neutrophils Percent Auto 53.6 % (45.5-73.1); Platelet Count Result 283 k/mm3 (150-375); Red Blood Count 4.28 M/mm3 (4.2-5.4); Red Cell Distribution Width 13.1 % (11.5-14.5); White Blood Count 10.4 K/mm3 (4.5-10.0)
[2021-07-15 12:59] LABS: Anion Gap 8 mmol/L (8-16); Blood Urea Nitrogen 7 mg/dL (7-17); Calcium 9.3 mg/dL (8.4-10.2); Carbon Dioxide 25 mmol/L (22-30); Chloride 99 mmol/L (98-107); Estimated Glomerular Filt Rate > 60; Glucose 136 mg/dL (65-110); Potassium 3.9 mmol/L (3.4-5.0); Sodium 132 mmol/L (137-145)
== END 2021-07-15 12:00 | disposition home or self-care (01) ==
LOC: ANHLAB 12:03
PROVIDERS: PCP Internal Medicine; Visit Provider Internal Medicine
DX: R05.9 Cough, unspecified (principal); J06.9 Acute upper respiratory infection, unspecified; R09.89 Other specified symptoms and signs involving the circulatory and respiratory systems; J34.89 Other specified disorders of nose and nasal sinuses
CPT/HCPCS: 36415; 70220; 71046; 80048; 85025

== ENCOUNTER → 2021-07-16 00:14 | Outpatient (CLI) | payer MEDICARE, OTHER, SELFPAY ==
[2021-07-16 11:43] LABS: SARS-CoV-2 RNA PCR Negative
== END ==
PROVIDERS: PCP Internal Medicine; Visit Provider Internal Medicine
DX: R05.9 Cough, unspecified (principal); R53.83 Other fatigue; J34.89 Other specified disorders of nose and nasal sinuses
CPT/HCPCS: C9803; U0003; U0005

== ENCOUNTER 2021-08-22 15:14 | Outpatient (CLI) | payer MEDICARE, OTHER, SELFPAY ==
--- NOTE | ~2021-08-22 | DEXA_ITS ---
Bone Density Report Name: ELLEN MCCRAY Age: 75 Sex: Female Ethnicity: White Date of : 1945 Indication: postmenopausal; screening for osteoporosis; prior fracture; cancer; Referring Provider: OTF PEDRO Study: Bone densitometry was performed. Exam Date: August 22, 2021 Accession number: [id number] Bone Density: Region BMD T-score Z-score Classification AP Spine(L1-L4) 1.017 -0.3 2.2 Normal Femoral Neck (Left) 0.626 -2.0 0.1 Osteopenia Total Hip (Left) 0.797 -1.2 0.6 Osteopenia Femoral Neck (Right) 0.599 -2.3 -0.1 Osteopenia Total Hip (Right) 0.833 -0.9 0.9 Normal Total Hip Mean 0.815 -1.1 0.8 Osteopenia World Health Organization criteria for BMD impression classify patients as: Normal (T-score at or above -1.0), Osteopenia (T-score between -1.0 and -2.5), or Osteoporosis (T-score at or below -2.5). 10-year Fracture Risk(1): Major Osteoporotic Fracture 23% Hip Fracture 6.2% Reported Risk Factors: [place] (), Neck BMD=0.599, BMI=25.6, previous fracture (1) FRAX(R) Version 3.08. Fracture probability calculated for an untreated patient. Fracture probability may be lower if the patient has received treatment. Previous Exams: Region Exam Age BMD T-score BMD Change BMD Change Date g/cm2 vs Baseline vs Previous Total Hip(Left) 08/22/2021 75 0.797 -1.2 -0.030 (-3.6%) -0.030 (-3.6%) 04/21/2019 73 0.828 -0.9 Total Hip(Right) 08/22/2021 75 0.833 -0.9 -0.024 (-2.8%) -0.024 (-2.8%) 04/21/2019 73 0.857 -0.7 *Denotes significance at 95% confidence level, LSC for Total Hip = 0.027 g/cm2 Clinical Information Provided by Patient: Has had a low trauma fracture Has the following medical conditions: Cancer Patient maximum height was 62 Menopause Age: 53 Drinks caffeinated beverages Onset of menses at age 13 Number of children 0 Impression: The patient has low bone mass, based on the Right Femoral Neck T-score. The patient has an estimated ten-year risk of hip fracture of 6.2% and an estimated ten-year risk of major fracture of 23%, based on the WHO FRAX algorithm. The patient has risk factors, including: previous fracture. The BMD for the Total Hip(Left) decreased, changing by -3.6% since the last DXA exam. Discussion: BONE DENSITY IS LOW AT ONE OR MORE SKELETAL SITES. THE PATIENT'S BMD AND CLINICAL RISK FACTORS CONTRIBUTE TO THIS PATIENT'S HIGH RISK OF FRACTURE. This patient's lowest T-score is low at one or more skeletal sites. It
== END 2021-08-22 15:15 | disposition home or self-care (01) ==
PROVIDERS: PCP Internal Medicine; Visit Provider Internal Medicine
DX: Z78.0 Asymptomatic menopausal state (principal); M85.89 Other specified disorders of bone density and structure, multiple sites
CPT/HCPCS: 77080

== ENCOUNTER 2021-11-05 08:07 | Outpatient (CLI) | payer MEDICARE, OTHER, SELFPAY ==
[2021-11-05 08:36] LABS: Basophils Absolute Auto 0.1 K/mm3 (0.0-0.1); Basophils Percent Auto 0.5 % (0.2-1.2); Eosinophils Absolute Auto 0.2 K/mm3 (0-0.3); Eosinophils Percent Auto 2.2 % (0-4.4); Hematocrit 37.6 % (37.0-47.0); Hemoglobin 11.5 g/dL (12.0-15.0); Immature Granulocyte Absolute 0.04 K/mm3 (0.00-0.031); Immature Granulocyte Percent A 0.4 % (0-0.5); Lymphocytes Absolute Auto 3.27 K/mm3 (0.9-3.2); Lymphocytes Percent Auto 29.9 % (18.3-44.2); Mean Corpuscular HGB Conc 30.6 g/dl (32-36); Mean Corpuscular Hemoglobin 26.9 pg (26-34); Mean Corpuscular Volume 88.1 fl (80-100); Mean Platelet Volume 8.9 fl (7.4-10.4); Monocytes Absolute Auto 0.9 K/mm3 (0.1-0.6); Monocytes Percent Auto 7.9 % (2.6-8.5); Neutrophils Absolute Auto 6.5 K/mm3 (1.3-6.7); Neutrophils Percent Auto 59.1 % (45.5-73.1); Platelet Count Result 315 k/mm3 (150-375); Red Blood Count 4.27 M/mm3 (4.2-5.4); White Blood Count 10.9 K/mm3 (4.5-10.0)
[2021-11-05 08:52] LABS: Alanine Aminotransferase 14 U/L (6-35); Albumin Level 3.9 g/dL (3.5-5.1); Alkaline Phosphatase 69 U/L (38-126); Anion Gap 8 mmol/L (8-16); Aspartate Amino Transferase 28 U/L (14-36); Blood Urea Nitrogen 10 mg/dL (7-17); Calcium 9.5 mg/dL (8.4-10.2); Carbon Dioxide 30 mmol/L (22-30); Chloride 97 mmol/L (98-107); Cholesterol 123 mg/dL (0-200); Estimated Glomerular Filt Rate > 60; Glucose 144 mg/dL (65-110); HDL Direct 36 mg/dL; Potassium 3.9 mmol/L (3.4-5.0); Sodium 135 mmol/L (137-145); Triglycerides 144 mg/dL (<150)
[2021-11-05 08:53] LABS: Hemoglobin A1C 5.6 % (<5.7)
[2021-11-05 09:05] LABS: LDL Cholesterol Direct 56 mg/dL
[2021-11-05 09:12] LABS: Creatinine Urine 55.7 mg/dL
[2021-11-05 09:13] LABS: Free T4 Free Thyroxine 1.52 ng/mL (0.78-2.19)
[2021-11-05 09:16] LABS: MALB Creatinine Ratio 16.5 mg/g (0-30); Microalbumin Urine Random 9.2 mg/L (0-16.7)
== END 2021-11-05 08:08 | disposition home or self-care (01) ==
PROVIDERS: PCP Internal Medicine; Visit Provider Internal Medicine
DX: E11.9 Type 2 diabetes mellitus without complications (principal); Z13.29 Encounter for screening for other suspected endocrine disorder; Z79.899 Other long term (current) drug therapy; E78.2 Mixed hyperlipidemia; I10 Essential (primary) hypertension
CPT/HCPCS: 36415; 80053; 80061; 82043; 83036; 84439; 84443; 85025

== ENCOUNTER 2022-01-16 09:45 | Outpatient (RCR) | payer MEDICARE, OTHER, SELFPAY ==
[2021-12-06 12:16] VITALS: PULSE 111
== END 2022-02-27 13:50 | disposition home or self-care (01) ==
LOC: ANHCPREHAB 09:45
PROVIDERS: PCP Internal Medicine; Visit Provider Specialist
DX: Z95.1 Presence of aortocoronary bypass graft (principal)
CPT/HCPCS: 93798

== ENCOUNTER 2022-01-20 12:51 | Outpatient (CLI) | payer MEDICARE, OTHER, SELFPAY ==
--- NOTE | ~2022-01-20 | XR_ITS ---
XR lumbar spine 6V w bending DATE: 01/20/2022 13:38 INDICATION: Low back pain. Patient fell 2-3 days ago. TECHNIQUE: Flexion and extension lateral views. AP, lateral, bilateral oblique views and coned latera l lumbosacral view COMPARISON: 05/24/2020 lumbar spine FINDINGS: There is osteopenia. There is chronic mild loss of height and anterior wedging of T12. There is interval moderate compression fracture deformity of L1 since 05/24/2020 with prominent [place] of the inferior vertebral endplate centrally. No other lumbar spine fracture is noted. No instability is noted on flexion or extension. There is mild to moderate rotatory levoscoliosis of the lumbar spine. There is multilevel degenerativ e disc disease, most pronounced on the right at L3-4 and at L5-S1. There is associated mild retrolist hesis at L3-4. Moderate degenerative disc disease at L1-2 and L2-3 and L4-5. The lumbar pedicles are intact. No pars interarticularis defect. There is degenerative change at the apophyseal joints in particular at L4-5 and L5-S1. The sacroiliac joints are intact. IMPRESSION: New moderate compression fracture deformity of L1 since 05/24/2020 Moderate amount rotatory levoscoliosis and multilevel degenerative disc disease of the lumbar spine Reviewed, dictated and finalized at location A. 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
== END 2022-01-20 12:52 | disposition home or self-care (01) ==
PROVIDERS: PCP Internal Medicine; Visit Provider Internal Medicine
DX: M54.50 Low back pain, unspecified (principal); S32.018A Other fracture of first lumbar vertebra, initial encounter for closed fracture; M41.86 Other forms of scoliosis, lumbar region; M51.36 Other intervertebral disc degeneration, lumbar region
CPT/HCPCS: 72114

== ENCOUNTER 2022-01-28 09:12 | Outpatient (CLI) | payer MEDICARE, OTHER, SELFPAY ==
--- NOTE | ~2022-01-28 | CT_ITS ---
EXAMINATION: CT lumbar spine wo con DATE: 01/28/2022 09:42 INDICATION: Age-related osteoporosis with current pathological fracture. TECHNIQUE: Computed tomography (CT) of the lumbar spine was performed without intravenous contrast. A utomated exposure control and iterative reconstruction technique were employed. The dose-length produ ct was 384.79 mGy-cm. COMPARISON: CT abdomen and pelvis 10/10/2019, lumbar spine radiographs 01/20/2022 FINDINGS: There is 19 degrees levoscoliosis of lumbar spine. There is a chronic compression fracture of T12 with 2/5 loss of height centrally. There is a subacute burst fracture of L1 with 3/5 loss of h eight centrally and retropulsion of bone 3 mm into central spinal canal. There is mildly decreased di sc height at L2-L3, severely decreased disc height at L3-L4, mildly decreased disc height at L4-L5, a nd severely decreased disc height at L5-S1. The following disc levels are specifically discussed: L1-L2: The disc is bulging. There is mild bilateral facet joint osteoarthritis. There is mild bilater al neural foraminal stenosis. There is mild central canal stenosis. L2-L3: The disc is bulging. There is moderate bilateral facet joint osteoarthritis. There is moderate right and mild left neural foraminal stenosis. There is mild central canal stenosis. L3-L4: The disc is bulging. There is severe bilateral facet joint osteoarthritis. There is moderate r ight and mild left neural foraminal stenosis. There is mild central canal stenosis. L4-L5: The disc is bulging. There is severe bilateral facet joint osteoarthritis. There is moderate b ilateral neural foraminal stenosis. There is moderate central canal stenosis. L5-S1: The disc is bulging. There is severe bilateral facet joint osteoarthritis. There is mild right and moderate left neural foraminal stenosis. There is mild central canal stenosis. IMPRESSION: 1. Subacute L1 burst fracture, stable from 01/20/2022. 2. Severe lumbar spondylosis. 3. Lumbar levoscoliosis. Reviewed, dictated and finalized at location A. 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
== END 2022-01-28 09:13 ==
PROVIDERS: PCP Internal Medicine; Visit Provider Pain Medicine Pain Medicine
DX: S32.011A Stable burst fracture of first lumbar vertebra, initial encounter for closed fracture (principal); M80.08XA Age-related osteoporosis with current pathological fracture, vertebra(e), initial encounter for fracture; M47.816 Spondylosis without myelopathy or radiculopathy, lumbar region; M41.9 Scoliosis, unspecified
CPT/HCPCS: 72131

== ENCOUNTER 2022-03-12 09:26 | Outpatient (CLI) | payer MEDICARE, OTHER, SELFPAY ==
[2022-03-12 09:46] LABS: Basophils Absolute Auto 0.1 K/mm3 (0.0-0.1); Basophils Percent Auto 0.7 % (0.2-1.2); Eosinophils Absolute Auto 0.2 K/mm3 (0-0.3); Eosinophils Percent Auto 1.9 % (0-4.4); Hemoglobin 13.3 g/dL (12.0-15.0); Immature Granulocyte Absolute 0.04 K/mm3 (0.00-0.031); Immature Granulocyte Percent A 0.4 % (0-0.5); Lymphocytes Percent Auto 33.6 % (18.3-44.2); Mean Corpuscular HGB Conc 32.4 g/dl (32-36); Mean Corpuscular Hemoglobin 26.9 pg (26-34); Mean Corpuscular Volume 82.8 fl (80-100); Mean Platelet Volume 9.3 fl (7.4-10.4); Monocytes Absolute Auto 0.6 K/mm3 (0.1-0.6); Neutrophils Absolute Auto 5.8 K/mm3 (1.3-6.7); Neutrophils Percent Auto 57.4 % (45.5-73.1); Platelet Count Result 275 k/mm3 (150-375); Red Blood Count 4.95 M/mm3 (4.2-5.4); Red Cell Distribution Width 17.6 % (11.5-14.5); White Blood Count 10.1 K/mm3 (4.5-10.0)
[2022-03-12 10:02] LABS: Alanine Aminotransferase 23 U/L (6-35); Albumin Level 4.7 g/dL (3.5-5.1); Alkaline Phosphatase 53 U/L (38-126); Anion Gap 9 mmol/L (8-16); Aspartate Amino Transferase 30 U/L (14-36); Bilirubin,Total 1.9 mg/dL (0.2-1.3); Blood Urea Nitrogen 14 mg/dL (7-17); Calcium 9.3 mg/dL (8.4-10.2); Carbon Dioxide 29 mmol/L (22-30); Chloride 97 mmol/L (98-107); Cholesterol 139 mg/dL (0-200); Estimated Glomerular Filt Rate > 60; Glucose 129 mg/dL (65-110); HDL Direct 43 mg/dL; Potassium 4.2 mmol/L (3.4-5.0); Sodium 135 mmol/L (137-145); Triglycerides 139 mg/dL (<150)
[2022-03-12 10:11] LABS: Hemoglobin A1C 6.5 % (<5.7)
[2022-03-12 10:13] LABS: LDL Cholesterol Direct 62 mg/dL
[2022-03-12 10:47] LABS: Vitamin D 25 Hydroxy 62.2 ng/mL
== END 2022-03-12 09:27 | disposition home or self-care (01) ==
PROVIDERS: PCP Internal Medicine; Visit Provider Internal Medicine
DX: I10 Essential (primary) hypertension (principal); E11.9 Type 2 diabetes mellitus without complications; E78.2 Mixed hyperlipidemia; E55.9 Vitamin D deficiency, unspecified
CPT/HCPCS: 36415; 80053; 80061; 82306; 83036; 85025

== ENCOUNTER 2022-04-23 11:24 | Outpatient (CLI) | payer MEDICARE, OTHER, SELFPAY ==
--- NOTE | ~2022-04-23 | XR_ITS ---
EXAMINATION: XR lumbar spine 6V w bending DATE: 04/23/2022 11:54 INDICATION: Age-related osteoporosis TECHNIQUE: Anteroposterior, lateral in neutral, flexion and extension, and bilateral oblique views of the lumbar spine, and cone-down lateral view of the lumbosacral junction were obtained. COMPARISON: 01/20/2022 FINDINGS: Again seen is a burst fracture of L1 without significant change. There are 29 degrees of ayan mbar levoscoliosis. Again noted is a chronic compression fracture of T12. No acute fracture is identi fied. There is severe loss of intervertebral disc space height at L3-4 and L5-S1. There is mild loss of intervertebral disc space height at L2-3 and L4-5. There are 3 mm of anterolisthesis of L4 on L5 w ith flexion of the lumbar spine. Small degenerative osteophytes project from the anterior endplates o f multiple vertebral bodies. There is multilevel severe facet joint osteoarthritis. IMPRESSION: 1. Severe lumbar spondylosis and L1 burst fracture without significant change. 2. Mild hypermobility at L4-5 with flexion of the lumbar spine. Reviewed, dictated and finalized at location B. 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
== END 2022-04-23 11:25 ==
LOC: MICIMG 11:26
PROVIDERS: PCP Internal Medicine; Visit Provider Nurse Practitioner Family
DX: M80.08XA Age-related osteoporosis with current pathological fracture, vertebra(e), initial encounter for fracture (principal); M47.816 Spondylosis without myelopathy or radiculopathy, lumbar region
CPT/HCPCS: 72114

== ENCOUNTER 2022-06-18 15:23 | Outpatient (CLI) | payer MEDICARE, OTHER, SELFPAY ==
--- NOTE | ~2022-06-18 | MM_ITS ---
EXAMINATION: MM screening daphne BI w bernie HISTORY: Screening mammogram TECHNIQUE: Craniocaudal and mediolateral oblique 3-D tomosynthesis images were obtained and synthetic 2-D images were generated. CAD analysis was submitted and interpreted. COMPARISON: 05/08/2021, 04/11/2020, 04/07/2019 bilateral screening mammogram examinations BREAST PARENCHYMAL COMPOSITION: There are scattered areas of fibroglandular density. FINDINGS: Numerous bilateral benign calcifications. There is no evidence of suspicious mass, calcific ation, or architectural distortion to suggest malignancy in either breast. There has been no suspicio us interval change. IMPRESSION: 1. No mammographic evidence of malignancy. 2. Recommend routine screening mammography in one year. BI-RADS Category 2: Benign finding(s). Reviewed, dictated and finalized at location A.
== END 2022-06-18 15:24 | disposition home or self-care (01) ==
LOC: ANHIMG 15:26
PROVIDERS: PCP Internal Medicine; Visit Provider Internal Medicine
DX: Z12.31 Encounter for screening mammogram for malignant neoplasm of breast (principal)
CPT/HCPCS: 77063; 77067

== ENCOUNTER 2022-06-24 12:14 | Outpatient (CLI) | payer MEDICARE, OTHER, SELFPAY ==
[2022-06-24 12:33] LABS: Basophils Absolute Auto 0.1 K/mm3 (0.0-0.1); Basophils Percent Auto 0.6 % (0.2-1.2); Eosinophils Absolute Auto 0.2 K/mm3 (0-0.3); Eosinophils Percent Auto 2.2 % (0-4.4); Hematocrit 42.2 % (37.0-47.0); Hemoglobin 13.3 g/dL (12.0-15.0); Immature Granulocyte Absolute 0.04 K/mm3 (0.00-0.031); Immature Granulocyte Percent A 0.4 % (0-0.5); Lymphocytes Absolute Auto 3.13 K/mm3 (0.9-3.2); Lymphocytes Percent Auto 32.8 % (18.3-44.2); Mean Corpuscular HGB Conc 31.5 g/dl (32-36); Mean Corpuscular Hemoglobin 27.7 pg (26-34); Mean Corpuscular Volume 87.7 fl (80-100); Mean Platelet Volume 9.3 fl (7.4-10.4); Monocytes Absolute Auto 0.7 K/mm3 (0.1-0.6); Monocytes Percent Auto 7.5 % (2.6-8.5); Neutrophils Absolute Auto 5.4 K/mm3 (1.3-6.7); Neutrophils Percent Auto 56.5 % (45.5-73.1); Platelet Count Result 243 k/mm3 (150-375); Red Blood Count 4.81 M/mm3 (4.2-5.4); Red Cell Distribution Width 14.1 % (11.5-14.5); White Blood Count 9.6 K/mm3 (4.5-10.0)
[2022-06-24 12:54] LABS: Alanine Aminotransferase 24 U/L (6-35); Albumin Level 4.4 g/dL (3.5-5.1); Alkaline Phosphatase 50 U/L (38-126); Anion Gap 7 mmol/L (8-16); Aspartate Amino Transferase 26 U/L (14-36); Bilirubin,Total 1.6 mg/dL (0.2-1.3); Blood Urea Nitrogen 14 mg/dL (7-17); Calcium 9.4 mg/dL (8.4-10.2); Carbon Dioxide 35 mmol/L (22-30); Chloride 95 mmol/L (98-107); Cholesterol 130 mg/dL (0-200); Estimated Glomerular Filt Rate > 60; Glucose 122 mg/dL (65-110); HDL Direct 41 mg/dL; Potassium 4.3 mmol/L (3.4-5.0); Sodium 137 mmol/L (137-145); Triglycerides 149 mg/dL (<150)
[2022-06-24 13:00] LABS: Iron 88 ug/dL (37-170)
[2022-06-24 13:05] LABS: LDL Cholesterol Direct 64 mg/dL
[2022-06-24 13:10] LABS: Percent Iron Saturation 25 % (20-50)
[2022-06-24 13:13] LABS: Hemoglobin A1C 6.6 % (<5.7)
[2022-06-24 13:19] LABS: Free T4 Free Thyroxine 1.25 ng/mL (0.78-2.19)
[2022-06-24 14:01] LABS: Folic Acid > 20.0 ng/mL (2.76->20)
== END 2022-06-24 12:15 | disposition home or self-care (01) ==
LOC: ANHLAB 12:16
PROVIDERS: PCP Internal Medicine; Visit Provider Internal Medicine
DX: D50.9 Iron deficiency anemia, unspecified (principal); I10 Essential (primary) hypertension; Z79.899 Other long term (current) drug therapy; Z13.29 Encounter for screening for other suspected endocrine disorder; E11.9 Type 2 diabetes mellitus without complications; E78.2 Mixed hyperlipidemia; R79.89 Other specified abnormal findings of blood chemistry
CPT/HCPCS: 36415; 80053; 80061; 82607; 82728; 82746; 83036; 83540; 83550; 84439; 84443; 85025

== ENCOUNTER 2022-07-24 09:49 | Outpatient (CLI) | payer MEDICARE, OTHER, SELFPAY ==
[2022-07-24 10:39] LABS: Iron 75 ug/dL (37-170)
[2022-07-24 10:48] LABS: Percent Iron Saturation 21 % (20-50)
== END 2022-07-24 09:50 | disposition home or self-care (01) ==
PROVIDERS: PCP Internal Medicine; Visit Provider Internal Medicine
DX: D50.9 Iron deficiency anemia, unspecified (principal)
CPT/HCPCS: 36415; 82728; 83540; 83550

== ENCOUNTER 2022-09-01 10:00 | Outpatient (CLI) | payer MEDICARE, OTHER, SELFPAY ==
--- NOTE | ~2022-09-01 | XR_ITS ---
Clinical Indication: Cough PA and lateral views of the chest: Comparison: 07/15/2021 Findings: The lungs are clear, without evidence of focal consolidation or pleural effusion. Cardiome diastinal silhouette is stable, status post pacemaker placement and cardiac surgery. Compression frac ture of L1 present. Impression: Clear lungs. Status post corrective surgery with valve replacement and pacemaker device present. Correlate with holder rgical history as indicated. Compression fracture of L1. Reviewed, dictated and finalized at location M. Impression: Clear lungs. Status post corrective surgery with valve replacement and pacemaker device pres ent. Correlate with surgical history as indicated. Compression fracture of L1.
[2022-09-01 10:54] LABS: Basophils Absolute Auto 0.1 K/mm3 (0.0-0.1); Basophils Percent Auto 0.6 % (0.2-1.2); Eosinophils Absolute Auto 0.1 K/mm3 (0-0.3); Eosinophils Percent Auto 1.1 % (0-4.4); Hematocrit 40.8 % (37.0-47.0); Hemoglobin 12.8 g/dL (12.0-15.0); Immature Granulocyte Absolute 0.03 K/mm3 (0.00-0.031); Immature Granulocyte Percent A 0.4 % (0-0.5); Lymphocytes Absolute Auto 2.36 K/mm3 (0.9-3.2); Lymphocytes Percent Auto 30.1 % (18.3-44.2); Mean Corpuscular HGB Conc 31.4 g/dl (32-36); Mean Corpuscular Hemoglobin 27.5 pg (26-34); Mean Corpuscular Volume 87.7 fl (80-100); Mean Platelet Volume 9.8 fl (7.4-10.4); Monocytes Absolute Auto 0.7 K/mm3 (0.1-0.6); Monocytes Percent Auto 8.7 % (2.6-8.5); Neutrophils Absolute Auto 4.6 K/mm3 (1.3-6.7); Neutrophils Percent Auto 59.1 % (45.5-73.1); Platelet Count Result 211 k/mm3 (150-375); Red Blood Count 4.65 M/mm3 (4.2-5.4); Red Cell Distribution Width 14.1 % (11.5-14.5); White Blood Count 7.8 K/mm3 (4.5-10.0)
== END 2022-09-01 10:01 | disposition home or self-care (01) ==
PROVIDERS: PCP Internal Medicine; Visit Provider Internal Medicine
DX: R05.9 Cough, unspecified (principal); Z98.890 Other specified postprocedural states; M48.56XA Collapsed vertebra, not elsewhere classified, lumbar region, initial encounter for fracture
CPT/HCPCS: 36415; 71046; 85025

== ENCOUNTER 2022-10-27 09:32 | Outpatient (CLI) | payer MEDICARE, OTHER, SELFPAY ==
[2022-10-27 10:09] LABS: Appearance Urine Clear (Clear); Bilirubin Urine Negative (Negative); Blood Urine Negative (Negative); Color Urine Yellow (Yellow); Glucose Urine UA 3+ mg/dL (Negative); Ketones Urine Negative (Negative); Leukocyte Esterase Ur Negative LEU/UL (Negative); Nitrate Urine Negative (Negative); Protein Urine Negative (Negative)
[2022-10-27 10:10] LABS: Add Urine Microscopic? NO
[2022-10-27 10:20] LABS: Alanine Aminotransferase 22 U/L (6-35); Albumin Level 4.1 g/dL (3.5-5.1); Alkaline Phosphatase 43 U/L (38-126); Anion Gap 6 mmol/L (8-16); Aspartate Amino Transferase 27 U/L (14-36); Bilirubin,Total 1.9 mg/dL (0.2-1.3); Blood Urea Nitrogen 12 mg/dL (7-17); Calcium 9.2 mg/dL (8.4-10.2); Carbon Dioxide 32 mmol/L (22-30); Chloride 95 mmol/L (98-107); Cholesterol 116 mg/dL (0-200); Estimated Glomerular Filt Rate > 60; Glucose 129 mg/dL (65-110); HDL Direct 34 mg/dL; Sodium 133 mmol/L (137-145); Triglycerides 160 mg/dL (<150)
[2022-10-27 10:28] LABS: Hemoglobin A1C 6.6 % (<5.7)
[2022-10-27 10:30] LABS: LDL Cholesterol Direct 60 mg/dL
== END 2022-10-27 09:33 | disposition home or self-care (01) ==
PROVIDERS: PCP Internal Medicine; Visit Provider Internal Medicine
DX: Z79.899 Other long term (current) drug therapy (principal); I10 Essential (primary) hypertension; E78.2 Mixed hyperlipidemia; E11.9 Type 2 diabetes mellitus without complications
CPT/HCPCS: 36415; 80053; 80061; 81003; 83036

== ENCOUNTER 2023-02-11 00:39 | Day surgery (SDC) | payer MEDICARE, OTHER, SELFPAY ==
[2023-01-27 12:03] VITALS: BMI 24.1
--- NOTE | 2023-01-27 14:24 | PC.NURSE ---
Spoke with __PATIENT__ regarding medication _ELIQUIS___. Pt. verbalizes understanding that the last dose of __ELIQUIS____ is to be taken on ____02/08/2023___ and the Endoscopist will instruct them when to restart after the procedure.
--- NOTE | 2023-02-09 09:12 | SUR.PREOP ---
Patient called regarding upcoming procedure. Reviewed preop instructions, appointment times, and procedure prep.
--- NOTE | 2023-02-10 18:12 | PM.HPGS ---
History of Present Illness History of Present Illness Consent: Risks, benefits, and alternatives have been discussed and questions answered. Patient agrees to proceed with procedure. Chief complaint: History of Colon Cancer Narrative: Isabela Moe is a 77 year old female referred for colon cancer screening. She had carcinoma of the colon with a low anterior resection in 2016. Her last colonoscopy in 2019 was negative for polyps. Review of Systems Review of Systems: All systems reviewed & are unremarkable except as noted in HPI and below PMFSH Past Medical History Medical History Abdominal pain Acute appendicitis Acute appendicitis with localized peritonitis without abscess ASHD (arteriosclerotic heart disease) Back pain Benign essential hypertension BMI 23.0-23.9, adult BMI 24.0-24.9, adult Cataract Closed supracondylar fracture of right elbow Colon cancer screening Cough Cough DM type 2 (diabetes mellitus, type 2) Elevated homocysteine Elevated LFTs Encounter for Medicare annual wellness exam Encounter for routine adult health examination without abnormal findings Encounter for screening mammogram for malignant neoplasm of breast Encounter for surgical aftercare following surgery on the digestive system Encounter to establish care Follow up Hearing loss History of colon cancer Hospital discharge follow-up Hyperlipidemia Hypokinesis Iron deficiency anemia Low back pain Neck pain, acute On senior living drug therapy Osteoporosis Personal history of nicotine dependence Post-menopausal Sick sinus syndrome Wears hearing aid in both ears Surgical History Surgical History History of bilateral knee replacement History of bowel resection Laparoscopic low anterior resection in 2016 History of total bilateral knee replacement S/P appendectomy Family History Family History Father Heart disease Mother Diabetes mellitus Opioid abuse Hypertension Grandparent Diabetes mellitus Social History Social History Smoking packs per day: 1 Smoking cigarettes per day: 20.0 Years smoked: 23 Smoking pack-years: 23.00 Smoking status: Former smoker Tobacco type: cigarettes Second hand tobacco smoke exposure: No Additional smoking assessment comments: quit 1995 Alcohol intake: never Substance use: never Substance use type: does not use Lack of Transportation: No Lack of Food: Never True Current Housing: I Have Housing Concerned About Future Housing: No Difficulty Paying Gas/Electric Bills: No Difficulty Paying for Meds: No Currently Unemployed: No Education: High School Diploma/GED Difficulty w/ Childcare or Family Care: YES Living arrangements: with family Gender identity (if verbalized by the patient): Female Sexual Orientation (if Verbalized by the Patient): Straight or Heterosexual Spiritual care concerns: No Meds Home Medications and Allergies Home Medications Medication Instructions Recorded Confirmed Type mecobalamin (vitamin B12) 1,000 1,000 mcg sublingual HS 05/03/19 01/27/23 History mcg disintegrating tablet,sublingual Adult Multivitamin (w-lutein) 1 tablet PO DAILY 10/10/19 02/11/23 History ferrous sulfate 325 mg (65 mg 325 mg PO BID 03/23/20 02/11/23 History iron) tablet aspirin 81 mg capsule 81 mg PO DAILY 12/06/21 02/11/23 History blood sugar diagnostic (Luciano #100 ea 08/06/22 11/06/22 Rx Lite Strips) dapagliflozin propanediol 10 mg 10 mg PO DAILY #90 tabs 10/13/22 02/11/23 Rx tablet apixaban 5 mg tablet (Eliquis) 5 mg PO BID #180 tabs 11/06/22 01/27/23 Rx folic acid 1 mg tablet See Rx Instructions .Route 11/11/22 02/11/23 Rx .COMPLEX #90 tabs metformin 1,000 mg tablet See Rx Instructions .Route 01/01/23 01/27/23
[2023-02-11 07:45] VITALS: BP 131/91; PULSE 106; RESP 18; TEMP 36.3; O2SAT 97; BMI 22.8
[2023-02-11] MEDS: LACTATED RINGERS 1,000 ML 150 ML IV CONT (07:49)
[2023-02-11 08:07] LABS: Glucose Point of Care 137 mg/dl (65-105)
--- NOTE | 2023-02-11 08:14 | WPDANESEPPF ---
Anes - Initial Pre Proc Eval Procedure: Operation Date: 02/11/23 08:30 Proposed Procedures p Colonoscopy - Gee Palu MD Date/Time: 02/11/23 08:14 Surgeon: Gee Paul MD Pre Op Diagnosis: History of Colon Cancer Patient Data Age: 77 Gender: F Height: 1.57 m Weight: 56.5 kg Last Vital Signs Temp 97.4 F L 02/11/23 07:45 Pulse 106 H 02/11/23 07:45 Resp 18 02/11/23 07:45 BP 131/91 H 02/11/23 07:45 Pulse Ox 97 02/11/23 07:45 O2 Del Method Room Air 02/11/23 07:45 Allergies Allergy/AdvReac Type Severity Reaction Status Date / Time midazolam [From Versed] Allergy Severe Difficulty Verified 02/11/23 07:38 Breathing shrimp Allergy Severe Hives Verified 02/11/23 07:38 cucumber AdvReac Severe gas Verified 02/11/23 07:38 morphine AdvReac Severe dry heaves Verified 02/11/23 07:38 Penicillins AdvReac Intermediate dry heaves Verified 02/11/23 07:38 thiopental [From Pentothal] AdvReac Intermediate Unknown Verified 02/11/23 07:38 erythromycin base AdvReac Mild upset Verified 02/11/23 07:38 [From E-Mycin] stomach Home Medications Medication Instructions Recorded Confirmed Type mecobalamin (vitamin B12) 1,000 1,000 mcg sublingual HS 05/03/19 01/27/23 History mcg disintegrating tablet,sublingual Adult Multivitamin (w-lutein) 1 tablet PO DAILY 10/10/19 02/11/23 History ferrous sulfate 325 mg (65 mg 325 mg PO BID 03/23/20 02/11/23 History iron) tablet aspirin 81 mg capsule 81 mg PO DAILY 12/06/21 02/11/23 History blood sugar diagnostic (FreeStyle #100 ea 08/06/22 11/06/22 Rx Lite Strips) dapagliflozin propanediol 10 mg 10 mg PO DAILY #90 tabs 10/13/22 02/11/23 Rx tablet apixaban 5 mg tablet (Eliquis) 5 mg PO BID #180 tabs 11/06/22 01/27/23 Rx folic acid 1 mg tablet See Rx Instructions .Route 11/11/22 02/11/23 Rx .COMPLEX #90 tabs metformin 1,000 mg tablet See Rx Instructions .Route 01/01/23 01/27/23 Rx .COMPLEX #180 tabs metoprolol tartrate 25 mg tablet See Rx Instructions .Route 01/19/23 01/27/23 Rx .COMPLEX #180 tabs atorvastatin 40 mg tablet (Lipitor) 40 mg PO HS 01/27/23 02/11/23 History calcium carbonate 600 mg-vitamin 1 tablet PO DAILY 01/27/23 02/11/23 History D3 20 mcg (800 unit) tablet (Caltrate with Vitamin D3) lisinopril 20 mg tablet See Rx Instructions .Route 02/05/23 02/11/23 Rx .COMPLEX #180 tabs omeprazole 20 mg capsule,delayed See Rx Instructions .Route 02/05/23 02/11/23 Rx release .COMPLEX #90 caps Laboratory Tests 02/11/23 08:03 POC Capillary Glucose 137 H mg/dl (65-105) Patient hx anesthesia problems: none Family hx anesthesia problems: none Results Review: All pre-operative results and documents have been reviewed as part of the pre-operative evaluation. [facility] Past Medical History Medical History Abdominal pain Acute appendicitis Acute appendicitis with localized peritonitis without abscess ASHD (arteriosclerotic heart disease) Back pain Benign essential hypertension BMI 23.0-23.9, adult BMI 24.0-24.9, adult Cataract Closed supracondylar fracture of right elbow Colon cancer screening Cough Cough DM type 2 (diabetes mellitus, type 2) Elevated homocysteine Elevated LFTs Encounter for Medicare annual wellness exam Encounter for routine adult health examination without abnormal findings Encounter for screening mammogram for malignant neoplasm of breast Encounter for surgical aftercare following surgery on the digestive system Encounter to establish care Follow up Hearing loss History of colon cancer Hospital discharge follow-up Hyperlipidemia Hypokinesis Iron deficiency anemia Low back pain Neck pain, acute On alf drug therapy Osteoporosis Personal history of nicotine dependence Post-menopausal Sick sinus syndrome Wears hearing aid in both ears Surgical History Surgical History (Reviewed 02/11/23 @ 07:43 by Gee Mayen
[2023-02-11 08:45] VITALS: BP 84/35; PULSE 97; RESP 27; O2SAT 98
[2023-02-11 08:55] VITALS: BP 95/41; PULSE 102; RESP 20; O2SAT 98
[2023-02-11 09:05] VITALS: BP 113/58; PULSE 98; RESP 20; O2SAT 99
== END 2023-02-11 09:19 | disposition home or self-care (01) ==
PROVIDERS: PCP Internal Medicine; Visit Provider Internal Medicine Gastroenterology
PROC: 0DJD8ZZ Inspection of Lower Intestinal Tract, Via Natural or Artificial Opening Endoscopic (ICD-10-PCS; CPT 45378; principal; 2023-02-11 08:30)
DX: Z12.11 Encounter for screening for malignant neoplasm of colon (principal); K64.8 Other hemorrhoids; Z85.038 Personal history of other malignant neoplasm of large intestine; Z98.0 Intestinal bypass and anastomosis status; Z90.49 Acquired absence of other specified parts of digestive tract; I25.10 Atherosclerotic heart disease of native coronary artery without angina pectoris; I10 Essential (primary) hypertension; E11.9 Type 2 diabetes mellitus without complications; E78.5 Hyperlipidemia, unspecified; M81.0 Age-related osteoporosis without current pathological fracture; D50.9 Iron deficiency anemia, unspecified; Z87.891 Personal history of nicotine dependence; Z79.84 Long term (current) use of oral hypoglycemic drugs; Z79.01 Long term (current) use of anticoagulants
CPT/HCPCS: G0105; 82948; J2704; J7120

== ENCOUNTER 2023-03-10 09:23 | Outpatient (CLI) | payer MEDICARE, OTHER, SELFPAY ==
[2023-03-10 09:45] LABS: Basophils Absolute Auto 0.1 K/mm3 (0.0-0.1); Basophils Percent Auto 0.7 % (0.2-1.2); Eosinophils Absolute Auto 0.2 K/mm3 (0-0.3); Eosinophils Percent Auto 2.4 % (0-4.4); Hemoglobin 13.8 g/dL (12.0-15.0); Immature Granulocyte Absolute 0.03 K/mm3 (0.00-0.031); Immature Granulocyte Percent A 0.3 % (0-0.5); Lymphocytes Absolute Auto 2.35 K/mm3 (0.9-3.2); Lymphocytes Percent Auto 25.7 % (18.3-44.2); Mean Corpuscular HGB Conc 30.7 g/dl (32-36); Mean Corpuscular Hemoglobin 26.8 pg (26-34); Mean Corpuscular Volume 87.5 fl (80-100); Mean Platelet Volume 9.5 fl (7.4-10.4); Monocytes Absolute Auto 0.5 K/mm3 (0.1-0.6); Monocytes Percent Auto 5.8 % (2.6-8.5); Neutrophils Percent Auto 65.1 % (45.5-73.1); Platelet Count Result 230 k/mm3 (150-375); Red Blood Count 5.14 M/mm3 (4.2-5.4); Red Cell Distribution Width 13.8 % (11.5-14.5); White Blood Count 9.2 K/mm3 (4.5-10.0)
[2023-03-10 09:56] LABS: Alanine Aminotransferase 18 U/L (6-35); Albumin Level 4.3 g/dL (3.5-5.1); Alkaline Phosphatase 51 U/L (38-126); Anion Gap 8 mmol/L (8-16); Aspartate Amino Transferase 28 U/L (14-36); Bilirubin,Total 1.5 mg/dL (0.2-1.3); Blood Urea Nitrogen 13 mg/dL (7-17); Calcium 9.6 mg/dL (8.4-10.2); Carbon Dioxide 31 mmol/L (22-30); Chloride 96 mmol/L (98-107); Cholesterol 130 mg/dL (0-200); Estimated Glomerular Filt Rate > 60; Glucose 153 mg/dL (65-110); HDL Direct 41 mg/dL; Potassium 4.6 mmol/L (3.4-5.0); Sodium 135 mmol/L (137-145); Triglycerides 132 mg/dL (<150)
[2023-03-10 10:01] LABS: Hemoglobin A1C 7.2 % (<5.7)
[2023-03-10 10:07] LABS: LDL Cholesterol Direct 67 mg/dL
[2023-03-10 10:14] LABS: Iron 106 ug/dL (37-170)
[2023-03-10 10:24] LABS: Percent Iron Saturation 34 % (20-50)
[2023-03-10 10:32] LABS: Free T4 Free Thyroxine 1.49 ng/mL (0.78-2.19)
== END 2023-03-10 09:24 | disposition home or self-care (01) ==
LOC: ANHLAB 09:26
PROVIDERS: PCP Internal Medicine; Visit Provider Internal Medicine
DX: E78.5 Hyperlipidemia, unspecified (principal); I10 Essential (primary) hypertension; E11.9 Type 2 diabetes mellitus without complications; D50.9 Iron deficiency anemia, unspecified; Z13.29 Encounter for screening for other suspected endocrine disorder; Z79.899 Other long term (current) drug therapy
CPT/HCPCS: 36415; 80053; 80061; 82728; 83036; 83540; 83550; 84439; 84443; 85025

== ENCOUNTER 2023-07-21 09:23 | Outpatient (CLI) | payer MEDICARE, OTHER, SELFPAY ==
[2023-07-21 10:02] LABS: Basophils Absolute Auto 0.1 K/mm3 (0.0-0.1); Eosinophils Absolute Auto 0.2 K/mm3 (0-0.3); Eosinophils Percent Auto 2.9 % (0-4.4); Hematocrit 45.3 % (37.0-47.0); Hemoglobin 14.1 g/dL (12.0-15.0); Immature Granulocyte Absolute 0.03 K/mm3 (0.00-0.031); Immature Granulocyte Percent A 0.4 % (0-0.5); Lymphocytes Absolute Auto 2.48 K/mm3 (0.9-3.2); Lymphocytes Percent Auto 33.7 % (18.3-44.2); Mean Corpuscular HGB Conc 31.1 g/dl (32-36); Mean Corpuscular Hemoglobin 27.2 pg (26-34); Mean Corpuscular Volume 87.5 fl (80-100); Mean Platelet Volume 9.6 fl (7.4-10.4); Monocytes Absolute Auto 0.5 K/mm3 (0.1-0.6); Monocytes Percent Auto 6.7 % (2.6-8.5); Neutrophils Absolute Auto 4.1 K/mm3 (1.3-6.7); Neutrophils Percent Auto 55.3 % (45.5-73.1); Platelet Count Result 241 k/mm3 (150-375); Red Blood Count 5.18 M/mm3 (4.2-5.4); Red Cell Distribution Width 13.5 % (11.5-14.5); White Blood Count 7.4 K/mm3 (4.5-10.0)
[2023-07-21 10:44] LABS: Alanine Aminotransferase 20 U/L (6-35); Albumin Level 4.2 g/dL (3.5-5.1); Alkaline Phosphatase 53 U/L (38-126); Anion Gap 5 mmol/L (4-12); Aspartate Amino Transferase 29 U/L (14-36); Bilirubin,Total 1.8 mg/dL (0.2-1.3); Blood Urea Nitrogen 11 mg/dL (7-17); Calcium 9.6 mg/dL (8.4-10.2); Carbon Dioxide 30 mmol/L (22-30); Chloride 98 mmol/L (98-107); Cholesterol 129 mg/dL (0-200); Estimated Glomerular Filt Rate > 60; Glucose 151 mg/dL (65-110); HDL Direct 45 mg/dL; Potassium 4.4 mmol/L (3.4-5.0); Sodium 133 mmol/L (137-145); Triglycerides 174 mg/dL (<150)
[2023-07-21 10:45] LABS: Free T4 Free Thyroxine 1.39 ng/mL (0.78-2.19)
[2023-07-21 10:54] LABS: Appearance Urine Clear (Clear); Bacteria Urine None Seen /hpf; Bilirubin Urine Negative (Negative); Blood Urine Negative (Negative); Color Urine Yellow (Yellow); Glucose Urine UA 3+ mg/dL (Negative); Ketones Urine Negative (Negative); Leukocyte Esterase Ur Negative LEU/UL (Negative); Need Manual Microscopic Reviewed; Nitrate Urine Negative (Negative); Non Pathogenic Casts 0-2; Protein Urine 1+ mg/dL (Negative); Specific Grav Ur 1.016 (1.001-1.035); Squamous Epithelial Cell Urine None Seen /hpf (Few); Urobilinogen Urine 0.2 mg/dL (<2.0); WBC Urine 0-5 /hpf (0-3); pH Urine 7.5 (5.0-9.0)
[2023-07-21 10:55] LABS: LDL Cholesterol Direct 69 mg/dL
[2023-07-21 10:58] LABS: Add Urine Microscopic? YES
[2023-07-21 11:09] LABS: Creatinine Urine 50.6 mg/dL
[2023-07-21 11:14] LABS: MALB Creatinine Ratio 284.6 mg/g (0-30)
[2023-07-21 12:23] LABS: Hemoglobin A1C 6.8 % (<5.7)
== END 2023-07-21 09:24 | disposition home or self-care (01) ==
PROVIDERS: PCP Internal Medicine; Visit Provider Internal Medicine
DX: E78.5 Hyperlipidemia, unspecified (principal); E11.9 Type 2 diabetes mellitus without complications; I10 Essential (primary) hypertension; R53.83 Other fatigue; Z79.899 Other long term (current) drug therapy; Z13.29 Encounter for screening for other suspected endocrine disorder
CPT/HCPCS: 36415; 80053; 80061; 81001; 82043; 83036; 84439; 84443; 85025

== ENCOUNTER 2023-08-12 13:50 | Outpatient (CLI) | payer MEDICARE, OTHER, SELFPAY ==
--- NOTE | ~2023-08-12 | MM_ITS ---
EXAMINATION: MM screening daphne BI w bernie HISTORY: Screening TECHNIQUE: Craniocaudal and mediolateral oblique 3-D tomosynthesis images were obtained and synthetic 2-D images were generated. CAD analysis was submitted and interpreted. COMPARISON: Comparison to multiple prior studies sequentially, with oldest reviewed study dated 04/07. BREAST PARENCHYMAL COMPOSITION: Not dense: There are scattered areas of fibroglandular density. FINDINGS: There is no evidence of suspicious mass, calcification, or architectural distortion to sugg est malignancy in either breast. There has been no suspicious interval change. IMPRESSION: 1. No mammographic evidence of malignancy. 2. Recommend routine screening mammography in one year. BI-RADS Category 1: Negative Reviewed, dictated and finalized at location B.
== END 2023-08-12 13:51 | disposition home or self-care (01) ==
LOC: ANHIMG 13:54
PROVIDERS: PCP Internal Medicine; Visit Provider Internal Medicine
DX: Z12.31 Encounter for screening mammogram for malignant neoplasm of breast (principal)
CPT/HCPCS: 77063; 77067

== ENCOUNTER 2023-08-21 14:17 | Outpatient (CLI) | payer MEDICARE, OTHER, SELFPAY ==
--- NOTE | ~2023-08-21 | CT_ITS ---
EXAMINATION: CT abdomen pelvis wo con DATE: 08/21/2023 14:37 INDICATION: Other microscopic hematuria. TECHNIQUE: Computed tomography (CT) of the abdomen and pelvis was performed without intravenous contr ast. Automated exposure control and iterative reconstruction technique were employed. The dose-length product was 245.58 mGy-cm. COMPARISON: CT abdomen and pelvis 10/10/2019 FINDINGS: The visualized portions of the lung bases demonstrate mild atelectasis. No pleural effusion . The heart size is normal. There are changes of mitral valve replacement. There are pacer wires in t he right atrium and right ventricle. No pericardial effusion. Retained epicardial pacer wires are not ed. Calcifications in the liver and spleen are consistent with old granulomatous disease. The gallbla dder, pancreas, adrenal glands, and kidneys are normal. There is calcified atherosclerosis of the aor ta and many of the other arteries. There is an anastomosis in the sigmoid colon. There is a large vol ume of stool in the colon. There are changes of appendectomy. There are no pathologically enlarged ly mph nodes. There is no free intraperitoneal fluid. There is lumbar levoscoliosis and severe spondylos is. IMPRESSION: 1. No urolithiasis. Reviewed, dictated and finalized at location E. IMPRESSION: 1. No urolithiasis.
== END 2023-08-21 14:18 ==
LOC: MICIMG 14:21
PROVIDERS: PCP Internal Medicine; Visit Provider Internal Medicine
DX: R31.29 Other microscopic hematuria (principal)
CPT/HCPCS: 74176

== ENCOUNTER 2023-10-02 09:03 | Outpatient (CLI) | payer MEDICARE, OTHER, SELFPAY ==
--- NOTE | ~2023-10-02 | CT_ITS ---
EXAMINATION: CT abdomen pelvis wo/w con DATE: 10/02/2023 10:18 INDICATION: Microscopic hematuria TECHNIQUE: Computed tomography (CT) of the abdomen and pelvis was performed with 130 cc Omnipaque 350 intravenous contrast. Automated exposure control and iterative reconstruction technique were sita medina. Exam dose: 493.07 mGy-cm total exam DLP. COMPARISON: 08/21/2023 CT abdomen pelvis FINDINGS: Status post sternotomy. Retained epicardial pacemaker wires. Status post mitral valve repla cement. Right atrial and right ventricular pacemaker leads Cardiomegaly. No pericardial or pleural effusion. The liver, gallbladder, bile ducts, spleen, pancreas and pancreatic duct are unremarkable. Normal morphology of the adrenal glands. No renal mass lesion or urinary tract calculus or hydroureteronephrosis is evident. The urinary bladd er is unremarkable. No intraluminal mass lesion or bladder wall thickening. The uterus and adnexal areas are unremarkable. There is atherosclerotic calcification of the descending thoracic and abdominal aorta. No abdominal a ortic aneurysm. There is prominent calcification of the iliac and femoral arteries. No intraperitoneal or retroperitoneal or pelvic mass lesion or adenopathy or ascites is noted. Status post appendectomy. There is a suture line at the distal sigmoid colon. There is a prominent fecal material in the rectum and colon. No bowel obstruction or intraperitoneal free air. Prominent burst fracture deformity of L1, unchanged since 08/21/2023. There is mild chronic loss of he ight and anterior wedging of T12. Levoscoliosis and multilevel degenerative disc disease and prominent hypertrophic degenerative change s of the facets sats of the lumbar spine. IMPRESSION: No significant change since 08/21/2023 Reviewed, dictated and finalized at Location A. Reviewed, dictated and finalized at location J.
[2023-10-02 09:54] LABS: Estimated Glomerular Filt Rate > 60
== END 2023-10-02 09:04 | disposition home or self-care (01) ==
PROVIDERS: PCP Internal Medicine; Visit Provider Nurse Practitioner Family
DX: R31.29 Other microscopic hematuria (principal)
CPT/HCPCS: 74178; Q9967

== ENCOUNTER 2023-12-18 09:50 | Outpatient (CLI) | payer MEDICARE, OTHER, SELFPAY ==
[2023-12-18 10:16] LABS: Add Urine Microscopic? NO; Appearance Urine Clear (Clear); Bilirubin Urine Negative (Negative); Blood Urine Negative (Negative); Color Urine Yellow (Yellow); Glucose Urine UA 2+ mg/dL (Negative); Ketones Urine Negative (Negative); Leukocyte Esterase Ur Negative LEU/UL (Negative); Nitrate Urine Negative (Negative); Protein Urine Negative (Negative); Specific Grav Ur 1.006 (1.001-1.035); Urobilinogen Urine 0.2 mg/dL (<2.0)
[2023-12-18 10:49] LABS: Alanine Aminotransferase 19 U/L (6-35); Albumin Level 4.2 g/dL (3.5-5.1); Alkaline Phosphatase 54 U/L (38-126); Anion Gap 6 mmol/L (4-12); Aspartate Amino Transferase 27 U/L (14-36); Bilirubin,Total 2.4 mg/dL (0.2-1.3); Blood Urea Nitrogen 15 mg/dL (7-17); Calcium 9.4 mg/dL (8.4-10.2); Carbon Dioxide 32 mmol/L (22-30); Chloride 98 mmol/L (98-107); Cholesterol 146 mg/dL (0-200); Estimated Glomerular Filt Rate > 60; Glucose 156 mg/dL (65-110); HDL Direct 42 mg/dL; Potassium 4.3 mmol/L (3.4-5.0); Sodium 136 mmol/L (137-145); Triglycerides 160 mg/dL (<150)
[2023-12-18 11:01] LABS: LDL Cholesterol Direct 66 mg/dL
== END 2023-12-18 09:51 | disposition home or self-care (01) ==
LOC: ANHLAB 09:51
PROVIDERS: PCP Internal Medicine; Visit Provider Internal Medicine
DX: E11.9 Type 2 diabetes mellitus without complications (principal); E78.5 Hyperlipidemia, unspecified; I10 Essential (primary) hypertension; Z79.899 Other long term (current) drug therapy
CPT/HCPCS: 36415; 80053; 80061; 81003; 83036

== ENCOUNTER 2024-05-02 09:29 | Outpatient (CLI) | payer MEDICARE, OTHER, SELFPAY ==
--- OUTSIDE RECORDS SUMMARY | 2024-05-02 10:16 | XMS_ITS | Referral Summary ---
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) 02/16/2024 8:15 AM MANAGER INTERNET Ancillary Procedure [facility] Cardiology [address] [facility] [address], [place] [address] Sick sinus syndrome (CMS/HCC) (HCC) (Primary Dx); Cardiac pacemaker in situ; Heart block from Last 3 Months Allergies Active Allergy Reactions Criticality Noted Date Comments [place] Stomach upset Low 09/10/2021 Severe gas Erythromycin Nausea only Low 05/16/2021 Midazolam Unknown 05/16/2021 Morphine Other (See comments) Low 05/16/2021 Dry heaves Penicillins Other (See comments) Low 05/16/2021 [place] Penicillin allergy history form completed, minor rish Tolerates cefazolin 10/01/2021 Thiopental Sodium Other (See comments) Low 09/11/19 22 sobbing Shrimp Hives Medium 09/10/2021 Medications metFORMIN (GLUCOPHAGE) 1,000 mg tablet Take 1 tablet (1,000 mg total) by mouth 2 (two) times a day with meals 1 Active omeprazole (PriLOSEC) 20 mg capsule Take 1 capsule (20 mg total) by mouth daily 1 Active aspirin 81 mg enteric coated tablet Take 1 tablet (81 mg total) by mouth daily Active cyanocobalamin (Vitamin B-12) 1,000 mcg tabletIndication s:Prevention of Vitamin B12 Deficiency Take 1 tablet (1,000 mcg total) by mouth daily Active multivit-min/iro n/folic/lutein (CENTRUM SILVER WOMEN ORAL) Take 1 tablet by mouth daily Active acetaminophen 500 mg capsule Take 2 capsules (1,000 mg total) by mouth every 6 (six) hours as needed for pain 2 Active apixaban (ELIQUIS) 5 mg tabletIndication s:atrial fibrillation Take 1 tablet (5 mg total) by mouth 2 (two) times a day 60 tablet 2 Active dapagliflozin (FARXIGA) 5 mg tablet Take 1 tablet (5 mg total) by mouth daily 30 tablet 2 Active atorvastatin (LIPITOR) 40 mg tablet Take 1 tablet (40 mg total) by mouth nightly 30 tablet 2 Active lisinopriL (PRINIVIL,ZESTRI L) 20 mg tablet Take 1 tablet (20 mg total) by mouth daily Active folic acid (FOLVITE) 1 mg tablet Take 1 tablet (1 mg total) by mouth daily 2 Active metoprolol XL (TOPROL-XL) 50 mg extended release tablet Take 1 tablet (50 mg total) by mouth daily 90 tablet 3 4 02/08/20 25 Active insulin lispro (HumaLOG, ADMELOG) 100 unit/mL vial for injectionIndicat ions:Diabetes Mellitus Inject 0-5 Units under the skin 3 (three) times a day with meals 10 mL 1 2 10/06/19 22 Discontinu ed(Stop Taking at Discharge) Active Problems Problem Noted Date Diagnosed Date Hx of CABG 04/29/2022 H/O mitral valve repair 04/29/2022 Cardiac pacemaker in situ 01/15/2022 Overview (01/15/2022): Carvalho Assurity Dual Pacemaker. Dx; AV Block, SSS. DOI 09/26/2021-Munfakh. Meek [employer] remote monitoring. Sick sinus syndrome (CMS/HCC) 10/03/2021 Leukocytosis 10/01/2021 Coronary artery disease of n ative heart with stable angina pectoris 08/13/2021 Overview (08/13/2021): Added automatically from request for surgery [id number] Heart block 08/13/2021 Overview (09/25/2021): Added automatically from request for surgery [id number] Left ventricular systolic dysfunction 06/20/2021 Nonrheumatic mitral valve regurgitation 05/17/19 Social History Tobacco Use Types Packs/Day Years Used Date Smoking Tobacco: Former Cigarettes Q uit: 1996 Smokeless Tobacco: Never Tobacco Cessation:Counseling Given: Not Answered Social Connection and Isolat ion Panel [NHANES] Answer Date Recorded In a typical week, how many times do you talk on the phone with family, friends, or neighbors? More than three times a week 10/03/2021 How often do you get togethe r with friends or relatives? More than three times a week 10/03/2021 How often do you attend chur or scientologist services? Patient declined 10/03/2021 Do you belong to any clubs o r organizations such as orthodoxy groups, unions, fraternal or athletic groups, or school groups? Patient declined 10/03/2021 How often do you attend meet ings of the clubs or organizations you belong to? Patient declined 10/03/2021 Are you , , di vorced, , never , or living with a partner? Patient declined 10/03/2021 AUDIT-C Answer Date Recorded Q1: How often do you have a drink containing alcohol? Never 09/19/2021 Q2: How many drinks containi ng alcohol do you have on a typical day when you are drinking? Patient does not drink Q3: How often do you have si x or more drinks on one occasion? Never 09/19/2021 Overall Financial Resource Strain (CARDIA) Answe r Date Recorded How hard is it for you to pa y for the very basics like food, housing, medical care, and heating? Not hard at all 10/03/2021 Hunger Vital Sign Answer Date Recorded Within the past 12 months, y ou worried that your food would run out before you got the money to buy more. Never true 10/04/19 22 Within the past 12 months, t he food you bought just didn't last and you didn't have money to get more. Never true 10/03/2021 PRAPARE - Transportation Answer Date Re corded In the past 12 months, has l ack of transportation kept you from medical appointments or from getting medications? No 09/07 In the past 12 months, has l ack of transportation kept you from meetings, work, or from getting things needed for daily living? No 10/03/2021 Housing Stability Vital Sign Answer Hunter e Recorded In the last 12 months, was t here a time when you were not able to pay the mortgage or rent on time? No 10/03/2021 In the last 12 months, how many places have you lived? 2 10/03/2021 In the last 12 months, was t here a time when you did not have a steady place to sleep or slept in a nursing home (including now)? No 10/03/2021 Comments No Sex and Gender Information Value Date Recorded Sex Assigned at Not on file Legal Sex Female 10:07 AM MANAGER INTERNET Gender Identity Not on file Sexual Orientation Not on file Last Filed Vital Signs Vital Sign Reading Time Taken Comments Blood Pressure 130/80 11/17/2023 10:08 AM CDT Pulse 98 11/17/2023 10:08 AM CDT Temperature 36.6 C (97.8 F) 10/05/2021 7:00 AM CDT Respiratory Rate 16 04/21/2023 12:59 PM MANAGER INTERNET Oxygen Saturation 95% 11/17/2023 10:08 AM CDT Inhaled Oxygen Concentration - - Weight 59 kg (130 lb) 11/17/2023 10:08 AM CDT Height 154.9 cm (5' 1 ) 11/17/2023 10:08 AM CDT Body Mass Index 24.56 11/17/2023 10:08 AM CDT Plan of Treatment Not on file Medical Devices Implanted Type Area Shark Biologist Device Identifier Shelf Expiration Date Model / Serial / Lot [employer] Tendril Sts 6fr 52cm Is-1 Connector Active Fixation Bipolar Soft 8tc/52 - [id number] - [id number] Implanted:Qty: 1 on 09/26/2021 by Mac Simmons MD at [facility] Lead Heart [employer] 06/06/2024 2088TC/52 / [id number] / Description:Atrial lead [employer] Tendril Sts 6fr 58cm Is-1 Connector Active Fixation Bipolar Soft 2087tc/58 - [id number] - [id number] Implanted:Qty: 1 on 09/26/2021 by Mac Simmons MD at [facility] Lead Heart [employer] 07/06/20242087TC/58 / [id number] / Description:Ventricular lead [employer] Assurity Mri [id number] Chamber Is-1 Connector Thk6mm Pacemaker [id number] - [id number] - [id number] Implanted:Qty: 1 on 09/26/2021 by Mac Simmons MD at [facility] Pacemaker Chest Wall [employer] 02/28/2023 [id number] / [id number] / Atricure Device 45d 40mm 6cm Closure Atriclip Nitinol Polyester Flexible Shaft Plunger Supervisor Coating Left Atrial Appendage Exclusion System [id number] - [id number] Implanted:Qty: 1 on 09/19/2021 by Mac Simmons MD at [facility] N/A: Chest Atricure 07/07/2024 [id number] / / [id number] [employer] Damián-Brayan Noguera Imr Etlogix 28mm 3d Reduced Curvature [id number] - [id number] - [id number] Implanted:Qty: 1 on 09/19/2021 by Mac Simmons MD at [facility] N/A: Heart [employer] 04/09/2026 [id number] / [id number] / Procedures Procedure Name Priority Date/Time Associated Diagnosis Comments TRANSTHORACIC ECHO (TTE) COMPLETE W DOPPLER/CF W CONTRAST Routine 04/11/2024 12:02 PM MANAGER INTERNET 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) DEVICE CHECK - REMOTE Routine 02/29/2024 4:52 PM MANAGER INTERNET Cardiac pacemaker in situ Heart block from Last 3 Months Results * TRANSTHORACIC ECHO (TTE) COMPLETE W DOPPLER/CF W CONTRAST (04/11/2024 12:02 PM MANAGER INTERNET) LV EF 35 % CONS SCIMAGE Anatomical Region Laterality Modality Ultrasound 04/11/2024 11:2 1 AM MANAGER INTERNET Narrative 04/11/2024 2:40 PM MANAGER INTERNET [facility] Medical Group Cardiology [address] [facility] [address] [address] [address] [facility] [address], [place] [address] P:[phone] P:[phone] Echocardiographic Report Patient Name: ISABELA MOE H : 1945 Study Date: 04/11/2024 11:21:59 AM Gender: F Tech: Location: [place] Ref Provider: MARLY JETT Height(Cm): 155 BSA: 1.59 Weight(Kg): 59 Heart Rate: 97 BP: 130 / 80 Quality: Definity contrast agent used to enhance endocardial border definition Order Provider: MARLY JETT PROCEDURES: Echocardiographic Report: Transthoracic echocardiogram with complete 2D, M-Mode, color Doppler examination and Definity contrast. INDICATIONS: Coronary Artery Disease, MV Annuloplasty, and Pacemaker. MEASUREMENTS: 2D/MM Value Range Doppler Value Range EF Mod BP 33 % [ 54 - 74 ] AV Mean PG 4 mmHg EF Teich MM 34 % [ 54 - 74 ] AV Peak Dillan 1.38 m/s [ 1.00 - 1.70 ] Estimated EF 35 % AV Peak PG 8 mmHg LVIDd 2D 4.98 cm [ 3.80 - 5.20 ] AV VTI 23.34 cm LVIDd MM 5.05 cm [ 3.80 - 5.20 ] LVOT Peak Dillan 0.84 m/s [ 0.70 - 1.10 ] LVIDs 2D 4.42 cm [ 2.20 - 3.50 ] LVOT VTI 13.72 cm LVIDs MM 4.24 cm [ 2.20 - 3.50 ] MV E Peak Dillan 1.57 m/s [ 0.60 - 1.30 ] LVPWd MM 0.76 cm [ 0.60 - 0.90 ] MV Mean PG 6 mmHg [ 0 - 5 ] IVSd 2D 0.99 cm [ 0.60 - 0.90 ] MV PHT 57 msec [ 20 - 100 ] IVSd MM 0.76 cm [ 0.60 - 0.90 ] MVA PHT 3.87 cm2 [ 2.00 - 4.00 ] LA Dimension MM 3.92 cm [ 2.70 - 3.80 ] MV Decel Time 178 msec [ 104 - 258 ] AoR Diam MM 3.51 cm [ 2.70 - 3.70 ] PV Peak Dillan 0.62 m/s [ 0.40 - 0.80 ] LA Volume Index 52 cc/m2 [ 16 - 34 ] TR Peak Dillan 3.30 m/s [ 1.00 - 2.80 ] ACS MM 1.70 cm TR Peak PG 44 mmHg RVSP 52.00 mmHg [ 10.00 - 36.00 ] Lateral E` 0.05 m/s [ 0.10 - 0.15 ] E` 0.04 m/s E/E` 30 2D/MM Value Range Doppler Value Range - FINDINGS: Interpretation Site: Exam was interpreted at [facility]. Left Ventricle: Definity contrast agent used to visually enhance endocardial wall motion and contractility. Lot Number: [id number]. Moderate enlargement of left ventricle cavity. Moderate global left ventricular systolic dysfunction. There is pseudonormal diastolic dysfunction Grade II. Ejection fraction is measured at 33 %. Ejection Fraction is visually estimated to be 35 %. Right Ventricle: Normal right ventricular size. Linear artifact in right ventricle suggestive of catheter(s), pacemaker lead(s), or ICD lead(s). Left Atrium: There is severe enlargement of left atrium. Right Atrium: The right atrium is normal in size. Atrial Septum: Normal atrial septum. Mitral Valve: Normal appearance of the mitral valve. Annular region thickened with prior annuloplasty. Trivial regurgitation of the mitral valve. Mean gradient of 5.82 mmHg. Valve area of 3.9 cm2. Aortic Valve: Normal appearance of the aortic valve. Tricuspid Valve: Normal appearance of the tricuspid valve. Estimated peak RVSP is 52 mmHg. Mild tricuspid regurgitation. Pulmonic Valve: Normal appearance of the pulmonic valve. Mild pulmonic regurgitation. Pericardium: Normal pericardium with no significant pericardial effusion. Aorta: Normal aortic root. IVC: Normal size and normal respiratory collapse consistent with normal right atrial pressure (<5 mmHg). Pulmonary Artery: Normal pulmonary artery size. CONCLUSIONS: Definity contrast agent used to visually enhance endocardial wall motion and contractility. Lot Number: [id number]. Moderate enlargement of left ventricle cavity. Moderate global left ventricular systolic dysfunction. There is pseudonormal diastolic dysfunction Grade II. Ejection fraction is measured at 33 %. Ejection Fraction is visually estimated to be 35 %. There is severe enlargement of left atrium. Normal appearance of the mitral valve. Annular region thickened with prior annuloplasty. Trivial regurgitation of the mitral valve. Mean gradient of 5.82 mmHg. Valve area of 3.9 cm2. Normal appearance of the aortic valve. Electronically Signed By: Marly Jett MD, [facility] 04/11/2024 2:39:39 PM MANAGER INTERNET Procedure Note Marly Jett MD - 04/11/2024 [facility] Medical Group Cardiology [address] [facility] [address] [address] [address] [facility] [address], [id number], [place] [address] P:[phone] P:[phone] Echocardiographic Report Patient Name: ISABELA MOE H : 1945 Study Date: 04/11/2024 11:21:59 AM Gender: F Tech: Location: ND Ref Provider: MARLY JETT Height(Cm): 155 BSA: 1.59 Weight(Kg): 59 Heart Rate: 97 BP: 130 / 80 Quality: Definity contrast agent used to enhance endocardial borderdefinition Order Provider: MARLY JETT PROCEDURES: Echocardiographic Report: Transthoracic echocardiogram with complete 2D, M-Mode, color Dopplerexamination and Definity contrast. INDICATIONS: Coronary Artery Disease, MV Annuloplasty, and Pacemaker. MEASUREMENTS: 2D/MM Value Range Doppler ValueRange EF Mod BP 33 % [ 54 - 74 ] AV Mean PG 4mmHg EF Teich MM 34 % [ 54 - 74 ] AV Peak Dillan 1.38m/s [ 1.00 - 1.70 ] Estimated EF 35 % AV Peak PG 8mmHg LVIDd 2D 4.98 cm [ 3.80 - 5.20 ] AV VTI 23.34cm LVIDd MM 5.05 cm [ 3.80 - 5.20 ] LVOT Peak Dillan 0.84m/s [ 0.70 - 1.10 ] LVIDs 2D 4.42 cm [ 2.20 - 3.50 ] LVOT VTI 13.72cm LVIDs MM 4.24 cm [ 2.20 - 3.50 ] MV E Peak Dillan 1.57m/s [ 0.60 - 1.30 ] LVPWd MM 0.76 cm [ 0.60 - 0.90 ] MV Mean PG 6 mmHg[ 0 - 5 ] IVSd 2D 0.99 cm [ 0.60 - 0.90 ] MV PHT 57 msec[ 20 - 100 ] IVSd MM 0.76 cm [ 0.60 - 0.90 ] MVA PHT 3.87cm2 [ 2.00 - 4.00 ] LA Dimension MM 3.92 cm [ 2.70 - 3.80 ] MV Decel Time 178msec [ 104 - 258 ] AoR Diam MM 3.51 cm [ 2.70 - 3.70 ] PV Peak Dillan 0.62m/s [ 0.40 - 0.80 ] LA Volume Index 52 cc/m2 [ 16 - 34 ] TR Peak Dillan 3.30m/s [ 1.00 - 2.80 ] ACS MM 1.70 cm TR Peak PG 44mmHg RVSP 52.00 mmHg [ 10.00 - 36.00 ] Lateral E` 0.05 m/s [ 0.10 - 0.15 ] E` 0.04 m/s E/E` 30 2D/MM Value Range Doppler ValueRange - FINDINGS: Interpretation Site: Exam was interpreted at [facility]. Left Ventricle: Definity contrast agent used to visually enhance endocardial wall motionand contractility. Lot Number: [id number]. Moderate enlargement of left ventriclecavity. Moderate global left ventricular systolic dysfunction. There is pseudonormaldiastolic dysfunction Grade II. Ejection fraction is measured at 33 %. Ejection Fraction isvisually estimated to be 35 %. Right Ventricle: Normal right ventricular size. Linear artifact in right ventriclesuggestive of catheter(s), pacemaker lead(s), or ICD lead(s). Left Atrium: There is severe enlargement of left atrium. Right Atrium: The right atrium is normal in size. Atrial Septum: Normal atrial septum. Mitral Valve: Normal appearance of the mitral valve. Annular region thickened with priorannuloplasty. Trivial regurgitation of the mitral valve. Mean gradient of 5.82 mmHg.Valve area of 3.9 cm2. Aortic Valve: Normal appearance of the aortic valve. Tricuspid Valve: Normal appearance of the tricuspid valve. Estimated peak RVSP is 52 mmHg.Mild tricuspid regurgitation. Pulmonic Valve: Normal appearance of the pulmonic valve. Mild pulmonic regurgitation. Pericardium: Normal pericardium with no significant pericardial effusion. Aorta: Normal aortic root. IVC: Normal size and normal respiratory collapse consistent with normal rightatrial pressure (<5 mmHg). Pulmonary Artery: Normal pulmonary artery size. CONCLUSIONS: Definity contrast agent used to visually enhance endocardial wall motionand contractility. Lot Number: [id number]. Moderate enlargement of left ventriclecavity. Moderate global left ventricular systolic dysfunction. There is pseudonormaldiastolic dysfunction Grade II. Ejection fraction is measured at 33 %. Ejection Fraction isvisually estimated to be 35 %. There is severe enlargement of left atrium. Normal appearance of the mitral valve. Annular region thickened with priorannuloplasty. Trivial regurgitation of the mitral valve. Mean gradient of 5.82 mmHg.Valve area of 3.9 cm2. Normal appearance of the aortic valve. Electronically Signed By: Marly Jett MD, [facility] 04/11/2024 2:39:39 PM MANAGER INTERNET Marly Jett MD CV ECHO PROCEDURES Final Result * DEVICE CHECK - REMOTE (02/29/2024 4:52 PM MANAGER INTERNET) Anatomical Region Laterality Modality Other Narrative 03/31/2024 2:43 PM MANAGER INTERNET Carvalho Assurity Dual Pacemaker. Dx; AV Block, SSS. DOI 09/26/2021-Munfakh. Jett-Karen. [place] remote monitoring. Routine DDD Pacemaker Remote. Transmission attached. Battery status: 3.01 V, 6.8-8.4 years remaining battery life to DARREL. Stable lead impedances, pacing and sensing thresholds. Presenting rhythm: A sense/V sensed AP-< 1%, DIRECTOR OF ELEMENTARY EDUCATION-< 1% No AT/AF episodes noted. No Ventricular high rate episodes detected. Medications: Eliquis 5 mg., ASA 81 mg, lisinopril 20 mg, Toprol-XL 50 mg See scanned report. Office pacemaker follow up: 06/22/24 [place] remote f/u 7 months. Ortega Mayes, RN Marly Jett MD CV CARDIAC SERVICES PROC EDURES Final Result from Last 3 Months Insurance [employer] MEDICARE MEDICARE MEDICARE FOR [facility] MEDICARE [facility] Address: [facility] [address] [place] [address] FOR [facility] MEDICARE FOR LIFE Advance Directives For more information, please contact: [phone] Documents on File Type Date Recorded Patient Aviation Survival Technician Expl anation ADVANCE DIRECTIVE 09/10/2021 1:24 PM Power of Superintendent [employer] * Full Code (Latest Code Status on File) Date Activated Date Inactivated Comments 10/01/2021 11:27 PM 10/05/2021 8:46 PM * Full Code Date Activated Date Inactivated Comments 09/19/2021 4:53 PM 09/27/2021 7:53 PM Healthcare Agents on File Name Relationship Healthcare Agent Relationshi p Communication Marly Moe Son Health Care Agent Bettie Moe Daughter First Alternate Health Car e Agent Care Teams Billing Checker Relationship Specialty Start Date End Date Chin Tuttle MD [address] [facility] [address] [place] [address] PCP - General Internal Medicine 05/31/21 Chin Tuttle MD [address] [place] [address] Internal Medicine 05/31/21
--- OUTSIDE RECORDS SUMMARY | 2024-05-02 10:16 | XMS_ITS | Clinical Summary ---
Author Organization [facility] [place] [facility] [place] [address] Address [address] [place] [address] Care Team Providers Care Screw Machine Operator Single Spindle Name Role Phone Chin Tuttle MD Primary Care Provider Chin Tuttle MD Unavailable [phone] Allergies Active Allergy Reactions Criticality Noted Date Comments [place] Stomach upset Low 09/10/2021 Severe gas Erythromycin [...] (08/13/2021): Added automatically from request for surgery [id number] Heart block 08/13/2021 Overview (09/25/2021): Added automatically from request for surgery [id number] Left ventricular systolic dysfunction 06/20/2021 Nonrheumatic mitral valve regurgitation 05/17/19 22 Encounters Date Type Department Care Team Description 04/11/2024 11:15 AM VIAL GAUGER Ancillary Procedure [facility] Medical [facility] Cardiology [address] [facility] [address] [place] [id number] Coronary artery disease of [place] artery of [place] heart with stable angina pectoris (HCC) 02/16/2024 8:15 AM VIAL GAUGER Ancillary Procedure [facility] Cardiology [address], [place] [address] Sick sinus syndrome (CMS/HCC) (HCC) (Primary Dx); Cardiac pacemaker in situ; Heart block from Last 3 Months Surgical History Surgery Date Site/Laterality Comments TOTAL KNEE ARTHROPLASTY 03/09/2009 - 03/08/2010 Bilatera l COLECTOMY CATARACT EXTRACTION Bilateral APPENDECTOMY Medical History Medical History Date Comments Hypertension Diabetes mellitus (HCC) High cholesterol Anemia Arthritis Colon cancer (CMS/HCC) (HCC) Delayed emergence from general anesthesia Mitral valve disease Coronary artery disease GERD (gastroesophageal reflux disease) Type 2 diabetes mellitus (HCC) History of transfusion Osteopenia Family History Medical History Relation Name Comments Heart attack Father cause of , age 49 Diabetes Mother Heart disease Other Hypertension Other Relation Name Status Comments Father Mother Other Social History Tobacco Use Types Packs/Day Years [...] 10/03/2021 How often do you attend chur ch or yarsani services? Patient declined 10/03/2021 Do you belong to any clubs o r organizations such as alevism groups, unions, fraternal or athletic groups, or [...] place to sleep or slept in a fdc (including now)? No 10/03/2021 Comments No Sex and Gender Information Value Date Recorded Sex Assigned at Not on file Legal Sex Female 10:07 AM VIAL GAUGER Gender Identity Not on file Sexual Orientation Not on file Obstetrics History Last Filed Vital Signs Vital Sign Reading Time Taken Comments Blood Pressure 130/80 11/17/2023 10:08 AM CDT Pulse 98 11/17/2023 10:08 AM CDT Temperature 36.6 C (97.8 F) 10/05/2021 7:00 AM CDT Respiratory Rate 16 04/21/2023 12:59 PM VIAL GAUGER Oxygen Saturation 95% 11/17/2023 10:08 AM CDT Inhaled Oxygen Concentration - - Weight 59 kg (130 lb) 11/17/2023 10:08 AM CDT Height 154.9 cm (5' 1 ) 11/17/2023 10:08 AM CDT Body Mass Index 24.56 11/17/2023 10:08 AM CDT Plan of Treatment Health Maintenance Due Date Last Done Comments Depression Screening 1945 Hepatitis C Screening 1945 Osteoporosis Screening-Bone Density Scan 1945 Hepatitis B Screening 11/03/1963 Zoster Vaccine (1 of 2) 11/03/1995 Well Visit 65+ 2010 Pneumococcal vaccine 65+ (2 of 2 - PPSV23) 05/04/2015 03/09/2015 Fall Risk Assessment 10/05/2022 10/05/2021 Covid-19 Vaccine (5 - 2023-2 5 season) 2023 07/29/2021, 01/23/2021, 04/04/2020, Additional history exists DTaP/Tdap/Td Vaccine (2 - Td or Tdap) 07/30/2027 07/29/2017 Influenza Vaccine Completed 11/17/2023, , 12/08/2015, Additional history exists Medical Devices Implanted Type Area Polisher Eyeglass Frames Device Identifier Shelf Expiration Date Model / Serial / Lot [employer] Tendril Sts 6fr 52cm Is-1 Connector Active Fixation Bipolar Soft 52 - [id number] - [id number] Implanted:Qty: 1 on 09/26/2021 by Mac Simmons MD at [facility] Heart [employer] 06/06/2024/52 / [id number] / Description:Atrial lead [employer] Tendril Sts 6fr 58cm Is-1 Connector Active Fixation Bipolar Soft - [id number] - [id number] Implanted:Qty: 1 on 09/26/2021 by Mac Simmons MD at [facility] Heart [employer] 07/06/2024/ / [id number] / Description:Ventricular lead [employer] Assurity Mri [id number] 2 Chamber Is-1 Connector Thk6mm Pacemaker [id number] - [id number] - [id number] Implanted:Qty: 1 on 09/26/2021 by Mac Simmons MD at [facility] Pacemaker Chest Wall [employer] 02/28/2023 [id number] / [id number] / Atricure Device 45d 40mm 6cm Closure Atriclip Nitinol Polyester Flexible Shaft Plunger Tank Setter Left Atrial Appendage Exclusion System [id number] - [id number] Implanted:Qty: 1 on 09/19/2021 by Mac Simmons MD at [facility] N/A: Chest At[employer]ure 07/07/2024 [id number] / [id number] [employer] Damián-Brayan thy-Hooks Imr Etlogix 28mm 3d Reduced Curvature [id number] - [id number] - [id number] Implanted:Qty: 1 on 09/19/2021 by Mac Simmons MD at [facility] N/A: Heart [employer] 04/09/2026 [id number] / [id number] / Procedures Procedure Name Priority Date/Time Associated Diagnosis Comments TRANSTHORACIC ECHO (TTE) COMPLETE W DOPPLER/CF W CONTRAST Routine 04/11/2024 12:02 PM VIAL GAUGER Coronary artery disease of [place] artery of [place] heart with stable angina pectoris (HCC) DEVICE CHECK - REMOTE Routine 02/29/2024 4:52 PM VIAL GAUGER Cardiac pacemaker in situ Heart block from Last 3 Months Results * TRANSTHORACIC ECHO (TTE) COMPLETE W DOPPLER/CF W CONTRAST (04/11/2024 12:02 PM VIAL GAUGER) LV EF 35 % CONS SCIMAGE Anatomical Region Laterality Modality Ultrasound 04/11/2024 11:2 1 AM VIAL GAUGER Narrative 04/11/2024 2:40 PM VIAL GAUGER [facility] Medical Group Cardiology [address] [facility] [address], [place] [address] [address], [place] [address] P:[phone] P:[phone] Echocardiographic Report Patient Name: ISABELA MOE H : 1945 Study Date: 04/11/2024 11:21:59 AM Gender: F Tech: Location: [facility] Provider: MARLY JETT Height(Cm): 155 BSA: 1.59 [...] FINDINGS: Interpretation Site: Exam was interpreted at [facility]. Left Ventricle: Definity contrast agent used to [...] valve. Electronically Signed By: Marly Jett MD, [facility] 04/11/2024 2:39:39 PM VIAL GAUGER Procedure Note Marly Jett MD - 04/11/2024 [facility] Medical Group Cardiology [address] [facility] [address], [place] [address] [address], [place] [address] P:[phone] P:[phone] Echocardiographic Report Patient Name: ISABELA MOE H : 1945 Study Date: 04/11/2024 11:21:59 AM Gender: F Tech: Location: [facility] Provider: MARLY JETT Height(Cm): 155 BSA: 1.59 [...] FINDINGS: Interpretation Site: Exam was interpreted at [facility]. Left Ventricle: Definity contrast agent used to [...] valve. Electronically Signed By: Marly Jett MD, [facility] 04/11/2024 2:39:39 PM VIAL GAUGER us Marly Jett MD CV ECHO PROCEDURES Final Result * DEVICE CHECK - REMOTE (02/29/2024 4:52 PM VIAL GAUGER) Anatomical Region Laterality Modality Other Narrative 03/31/2024 2:43 PM VIAL GAUGER Carvalho Assurity Dual Pacemaker. Dx; AV Block, SSS. DOI 09/26/2021-Munfakh. Jett-Karen. Jarrell remote monitoring. Routine DDD Pacemaker Remote. Transmission attached. Battery status: 3.01 V, 6.8-8.4 years remaining battery life to DARREL. Stable lead impedances, pacing and sensing thresholds. Presenting rhythm: A sense/V sensed AP-< 1%, SUPPORT ASSISTANT-< 1% No AT/AF episodes noted. No Ventricular high rate episodes detected. Medications: Eliquis 5 mg., ASA 81 mg, lisinopril 20 mg, Toprol-XL 50 mg See scanned report. Office pacemaker follow up: 06/22/24 [place] remote f/u 7 months. Ortega Mayes RN us Marly Jett MD CV CARDIAC SERVICES PROC EDURES Final Result from Last 3 Months Insurance [employer] MEDICARE MEDICARE MEDICARE [facility] MEDICARE FOR LIFE MEDICARE FOR LIFE Advance Directives For more information, please contact: [phone] Documents on File Type Date Recorded Patient Bow Rehairer Expl anation ADVANCE DIRECTIVE 09/10/2021 1:24 PM Power of Thermostat Maker-Medical * Full Code (Latest Code Status on File) Date Activated Date Inactivated Comments 10/01/2021 11:27 PM 10/05/2021 8:46 PM * Full Code Date Activated Date Inactivated Comments 09/19/2021 4:53 PM 09/27/2021 7:53 PM Healthcare Agents on File Name Relationship Healthcare Agent Relationshi p Communication Marly Moe Son Health Care Agent Bettie Moe Daughter First Alternate Health Car e Agent Care Teams Screw Machine Operator Single Spindle Relationship Specialty Start Date End Date Chin Tuttle MD [address] [place] [address] PCP - General Internal Medicine 05/31/21 Chin Tuttle MD [address] [place] [address] Internal Medicine 05/31/21
--- OUTSIDE RECORDS SUMMARY | 2024-05-02 10:16 | XMS_ITS | Clinical Summary ---
Author Organization [facility] Address [address] García: Epic Prelude ADT VIANEY MATOS DAVID [address] Care Team Providers Care Nurse Aide Name Role Phone Unavailable Primary Care Provider Unavailabl e Allergies Active Allergy Reactions Criticality Noted Date Comments Erythromycin Unknown 07/21/2021 Midazolam Unknown 07/21/2021 Penicillins Unknown 07/21/2021 Medications codeine-guaiFEN esin (ROBITUSSIN-AC) 10-100 mg/5 mL Liquid Take 5 mL by mouth every 4-6 hours as needed for cough. 180 mL 07/26/2021 11:59 AM CDT 2 Active dapagliflozin (Farxiga) 5 mg Tablet Take 1 Tablet (5 mg) by mouth daily. 90 Tablet 1 07/30/2021 12:04 PM CDT 2 Active atorvastatin (LIPITOR) 40 mg tablet Take 1 tablet by mouth nightly. 30 Tablet 10/05/2021 3:57 PM CDT 2 Active dapagliflozin (Farxiga) 5 mg Tablet Take 1 Tablet (5 mg) by mouth daily. 30 Tablet 2 Active ferrous sulfate 325 mg (65 mg iron) tablet Take 1 Tablet (325 mg) by mouth 2 times daily. 30 Tablet 10/05/2021 3:57 PM CDT 2 Active methylPREDNISol one (MEDROL DOSPACK) 4 mg Tablets, Dose Pack TAKE BY MOUTH DIRECTED ON PACKAGE 21 Each 01/20/2022 3:41 PM CASE PLANNER 2 Active traMADoL (ULTRAM) 50 mg tablet Take 1 tablet by mouth every 4-6 hours as needed for pain. 25 Tablet 01/24/2022 3:27 PM CASE PLANNER 2 Active codeine-guaiFEN esin (ROBITUSSIN-AC) 10-100 mg/5 mL Liquid TAKE 5 ML BY MOUTH EVERY 4 TO 6 HOURS NEEDED FOR COUGH 118 mL 09/05/2022 12:16 PM CDT 3 Active folic acid (FOLVITE) 1 mg tablet TAKE ONE TABLET BY MOUTH ONCE DAILY 90 Tablet 1 02/13/2023 12:31 PM CASE PLANNER 3 Active folic acid (FOLVITE) 1 mg tablet TAKE ONE TABLET BY MOUTH ONCE DAILY 90 Tablet 1 3 Active metFORMIN (GLUCOPHAGE) 1,000 mg tablet Take 1 Tablet (1,000 mg) by mouth 2 times daily. 180 Tablet 1 02/13/2023 12:31 PM CASE PLANNER 3 Active fluticasone propionate (FLONASE) 50 mcg/spray [place], Suspension nasal inhaler inhale 2 sprays into each nostril twice daily for the first 72 hours, then use daily. 16 Gram 02/08/2023 11:30 AM CASE PLANNER 3 Active codeine-guaiFEN esin (ROBITUSSIN-AC) 10-100 mg/5 mL Liquid Take 10 mL by mouth every 4-6 hours as needed for cold symptoms. 120 mL 02/26/2023 3:09 PM CASE PLANNER 3 Active azelastine (OPTIVAR) 0.05 % solution ADMINISTER 1 DROP IN EACH EYE TWICE DAILY. 6 mL 6 09/30/2023 1:04 PM CDT 4 Active lisinopriL (PRINIVIL) 20 mg tablet TAKE ONE TABLET BY MOUTH TWICE A DAY 180 Tablet 1 4 Active omeprazole (PriLOSEC) 20 mg Capsule, Delayed Release(E.C.) TAKE ONE CAPSULE BY MOUTH ONCE DAILY 90 Capsule 1 4 Active nirmatrelvir-ri tonavir (Paxlovid) 300(150mg x 2)-100 mg oral pack Take 2 tablets of nirmatrelvir and 1 tablet of ritonavir by mouth twice daily for 5 days 30 Each 10/25/2023 12:13 PM CDT 4 Active folic acid (FOLVITE) 1 mg tablet TAKE ONE TABLET BY MOUTH ONCE DAILY 90 Tablet 1 4 Active folic acid (FOLVITE) 1 mg tablet TAKE ONE TABLET BY MOUTH ONCE DAILY 90 Tablet 1 02/09/2024 12:32 PM CASE PLANNER 4 Active lisinopriL (PRINIVIL) 20 mg tablet TAKE ONE TABLET BY MOUTH TWICE A DAY 180 Tablet 1 02/09/2024 12:32 PM CASE PLANNER 4 Active omeprazole (PriLOSEC) 20 mg Capsule, Delayed Release(E.C.) TAKE ONE CAPSULE BY MOUTH ONCE DAILY 90 Capsule 1 02/09/2024 12:32 PM CASE PLANNER 4 Active metoprolol succinate (TOPROL XL) 50 mg Extended Release 24 hour tablet Take 1 tablet (50 mg total) by mouth daily 90 Tablet 3 02/09/2024 12:32 PM CASE PLANNER 4 Active metFORMIN (GLUCOPHAGE) 1,000 mg tablet TAKE ONE TABLET BY MOUTH TWICE A DAY 180 Tablet 1 02/09/2024 12:32 PM CASE PLANNER 4 Active apixaban (Eliquis) 5 mg tablet Take 1 Tablet (5 mg) by mouth 2 times daily. 180 Tablet 1 02/18/2024 12:01 PM CASE PLANNER 4 Active dapagliflozin propanediol (FARXIGA) 10 mg Tablet Take 1 Tablet (10 mg) by mouth daily. 30 Tablet 04/14/2024 3:46 PM CASE PLANNER 5 Active Immunizations Immunization Administration Dates Next Due INFLUENZA VACCINE HIGH DOSE QUADRIVALENT 65 YR UP PF IM 11/18/2022,11/15/2021 INFLUENZA VACCINE HIGH DOSE TRIVALENT SPLIT VIRUS, (65 YR UP), 0.5ML (PF), IM 11/17/2023 Social History Tobacco Use Types Packs/Day Years Used Date Smoking Tobacco: Never Assessed Comments Unknown Sex and Gender Information Value Date Recorded Sex Assigned at Not on file Legal Sex Female 3:27 PM CDT Gender Identity Not on file Sexual Orientation Not on file Plan of Treatment Health Maintenance Due Date Last Done Comments DTAP/TDAP/TD VACCINES (1 - Tdap) 1964 PNEUMOCOCCAL VACCINE 65+ YEA RS (1 of 1 - PCV) 11/03/1995 ZOSTER VACCINE (1 of 2) 11/03/1995 OSTEOPOROSIS SCREENING 2010 RSV VACCINE (60+ or ) (1 - 1-dose 75+ series) 2020 INFLUENZA VACCINE Completed 11/17/2023, , 11/15/2021 Insurance RX [employer] (INTERNAL) [facility]
[2024-05-02 10:38] LABS: Alanine Aminotransferase 20 U/L (6-35); Albumin Level 4.1 g/dL (3.5-5.1); Alkaline Phosphatase 52 U/L (38-126); Anion Gap 8 mmol/L (4-12); Aspartate Amino Transferase 25 U/L (14-36); Bilirubin,Total 2.2 mg/dL (0.2-1.3); Blood Urea Nitrogen 18 mg/dL (7-17); Calcium 9.4 mg/dL (8.4-10.2); Carbon Dioxide 31 mmol/L (22-30); Chloride 97 mmol/L (98-107); Cholesterol 106 mg/dL (0-200); Estimated Glomerular Filt Rate > 60; Glucose 150 mg/dL (65-110); HDL Direct 35 mg/dL; Potassium 4.6 mmol/L (3.4-5.0); Sodium 136 mmol/L (137-145); Triglycerides 109 mg/dL (<150)
[2024-05-02 10:47] LABS: Hemoglobin A1C 7.6 % (<5.7)
[2024-05-02 10:49] LABS: LDL Cholesterol Direct 49 mg/dL
== END 2024-05-02 09:30 | disposition home or self-care (01) ==
LOC: ANHLAB 09:32
PROVIDERS: PCP Internal Medicine; Visit Provider Internal Medicine
DX: E78.5 Hyperlipidemia, unspecified (principal); E11.9 Type 2 diabetes mellitus without complications; I10 Essential (primary) hypertension
CPT/HCPCS: 36415; 80053; 80061; 83036

== ENCOUNTER 2024-09-12 12:27 | Outpatient (CLI) | payer MEDICARE, OTHER, SELFPAY ==
--- NOTE | ~2024-09-12 | DEXA_ITS ---
Bone Density Report Name: ELLEN MCCRAY Age: 78 Sex: Female Ethnicity: White Date of : 1945 Indication: osteopenia; height loss; rheumatoid arthritis; Referring Provider: OTF PEDRO Study: Bone densitometry was performed. Exam Date: September 12, 2024 Accession number: [id number] Bone Density: Region BMD T-score Z-score Classification AP Spine(L1-L4) 1.084 0.3 3.0 Normal Femoral Neck (Left) 0.584 -2.4 -0.1 Osteopenia Total Hip (Left) 0.764 -1.5 0.5 Osteopenia Femoral Neck (Right) 0.548 -2.7 -0.5 Osteoporosis Total Hip (Right) 0.808 -1.1 0.9 Osteopenia Total Hip Mean 0.786 -1.3 0.7 Osteopenia World Health Organization criteria for BMD impression classify patients as: Normal (T-score at or above -1.0), Osteopenia (T-score between -1.0 and -2.5), or Osteoporosis (T-score at or below -2.5). 10-year Fracture Risk: FRAX not reported because: Some T-score for Spine Total or Hip Total or Femoral Neck at or below -2.5 Previous Exams: -- Region Exam Age BMD T-score BMD Change BMD Change Date g/cm2 vs Baseline vs Previous -- AP Spine (L1-L4) 09/12/2024 78 1.084 0.3 6.6%* 6.6%* 08/22/2021 75 1.017 -0.3 Total Hip(Left) 09/12/2024 78 0.764 -1.5 -4.1%* -4.1%* 08/22/2021 75 0.797 -1.2 Total Hip(Right) 09/12/2024 78 0.808 -1.1 -3.0% -3.0% 08/22/2021 75 0.833 -0.9 -- *Denotes significance at 95% confidence level, LSC for AP Spine = 0.022 g/cm2, LSC for Total Hip = 0.027 g/cm2 Clinical Information Provided by Patient: Has rheumatoid arthritis Has used the following medications: Fosamax (i.e. alendronate), Vitamin D, Calcium Patient maximum height was 63 Menopause Age: 53 No regular weight bearing exercise Drinks caffeinated beverages Onset of menses at age 12 Number of children 0 Impression: The patient has osteoporosis, based on the Right Femoral Neck T-score. The BMD for the Total Hip(Left) decreased, changing by -4.1% since the last DXA exam. Discussion: INCREASED RISK OF FRACTURE. BONE DENSITY IS UNDESIRABLY LOW AT ONE OR MORE SKELETAL SITES, CONSISTENT WITH POSTMENOPAUSAL OSTEOPOROSIS. This patient's lowest T-score meets the World Health Organization's (WHO) criteria for osteoporosis at one or more sites (T-score -2.5 or below). In untreated patients, the risk of osteoporotic fracture increases approximately two-fold for each 1.0 SD decrease in T-score. Low bone density is not the only risk factor for fracture; also consider factors such as patient's age, frailty or poor health, risk of falling, risk of injury, previous osteoporotic fracture, family history of osteoporosis, cigarette smoking, low body weight, etc. Not everyone with low bone mineral density has osteoporosis; osteomalacia and other metabolic bone disorders should also be considered. Patients who have osteoporosis should be evaluated for specific diseases and conditions (secondary causes) that may cause or contribute to bone loss. The [place] Association of Clinical Endocrinologists (AACE) and National Osteoporosis Foundation (NOF) recommend pharmacologic intervention for all postmenopausal women whose T-score is in this range. The patient should follow a healthful lifestyle (good nutrition with adequate calcium and vitamin D, and appropriate weight-bearing exercise). Follow-Up: Consider a repeat BMD and Vertebral Fracture Assessment (VFA) exam in 2 years or sooner if medically necessary, to reassess this patient's status. Reported by: HU on 09/12/2024 12:52:00 PM. Reviewed, dictated and finalized at location A.
== END 2024-09-12 12:28 | disposition home or self-care (01) ==
LOC: MICIMG 12:29
PROVIDERS: PCP Internal Medicine; Visit Provider Internal Medicine
DX: M81.0 Age-related osteoporosis without current pathological fracture (principal); M85.80 Other specified disorders of bone density and structure, unspecified site; Z78.0 Asymptomatic menopausal state
CPT/HCPCS: 77080

== ENCOUNTER 2024-12-05 09:53 | Outpatient (CLI) | payer MEDICARE, OTHER, SELFPAY ==
--- OUTSIDE RECORDS SUMMARY | 2024-12-05 10:33 | XMS_ITS | Clinical Summary ---
Author Organization [facility] [place] [address] Address [address] [place] [address] Care Team Providers Care Skiver Machine Operator Name Role Phone Chin Tuttle MD Primary Care Provider Chin Tuttle MD Unavailable [phone] Allergies Active Allergy Reactions Criticality Noted Date Comments [place] Stomach upset Low 09/10/2021 Severe gas Erythromycin [...] times a day 60 tablet 2 Active lisinopriL (PRINIVIL,ZESTRI L) 20 mg tablet Take 1 tablet (20 mg total) by mouth daily Active folic acid (FOLVITE) 1 mg tablet Take 1 tablet (1 mg total) by mouth daily 2 Active metoprolol XL (TOPROL-XL) 50 mg extended release tablet Take 1 tablet (50 mg total) by mouth daily 90 tablet 3 4 02/08/20 25 Active Farxiga 10 mg tablet 5 Active calcium carbonate/vitami n D3 (CALTRATE 600 PLUS D ORAL) Take by mouth Active atorvastatin (LIPITOR) 20 mg tablet Take 1 tablet (20 mg total) by mouth daily Active ezetimibe (ZETIA) 10 mg tablet Take 1 tablet (10 mg total) by mouth daily 5 Active alendronate (FOSAMAX) 70 mg tablet Take 1 tablet (70 mg total) by mouth once a week 5 Active insulin lispro (HumaLOG, ADMELOG) 100 unit/mL vial for injectionIndicat ions:Diabetes Mellitus Inject 0-5 Units under the skin 3 (three) times a day with meals 10 mL 1 2 10/06/19 22 Discontinu ed(Stop Taking at Discharge) atorvastatin (LIPITOR) 40 mg tablet Take 1 tablet (40 mg total) by mouth nightly 30 tablet 2 12/03/19 25 Discontinu ed(Patient Reported) Active Problems Problem Noted Date Diagnosed Date Hx of CABG 04/29/2022 H/O mitral valve repair 04/29/2022 Cardiac pacemaker in situ 01/15/2022 Overview (01/15/2022): Carvalho Assurity Dual Pacemaker. Dx; AV Block, SSS. DOI 09/26/2021-Munfakh. Meek Vieyra remote monitoring. Sick sinus syndrome 10/03/2021 Leukocytosis 10/01/2021 Coronary artery disease of n ative heart with stable angina pectoris 08/13/2021 Overview (08/13/2021): Added automatically from request for surgery [id number] Heart block 08/13/2021 Overview (09/25/2021): Added automatically from request for surgery [id number] Left ventricular systolic dysfunction 06/20/2021 Nonrheumatic mitral valve regurgitation 05/17/19 Encounters Date Type Department Care Team Description 12/02/2024 11:00 AM CDT Office Visit [facility] [address] [facility] [address] [place] [phone] Jn Jett MD Coronary artery disease of [place] artery of [place] heart with stable angina pectoris (Primary Dx); Hx of CABG; H/O mitral valve repair; Cardiac pacemaker in situ 09/27/2024 7:45 AM CDT Ancillary Procedure [facility] [address] [facility] [address] [place] [phone] Heart block (Primary Dx); Cardiac pacemaker in situ; SSS (sick sinus syndrome) (HCC); Atrial fibrillation, unspecified type (HCC) from Last 3 Months Surgical History Surgery Date Site/Laterality Comments TOTAL KNEE ARTHROPLASTY 03/09/2009 - 03/08/2010 Bilatera l COLECTOMY CATARACT EXTRACTION Bilateral APPENDECTOMY Medical History Medical History Date Comments Hypertension Diabetes mellitus High cholesterol Anemia Arthritis Colon cancer (HCC) Delayed emergence from general anesthesia Mitral valve disease Coronary artery disease GERD (gastroesophageal reflux disease) Type 2 diabetes mellitus History of transfusion Osteopenia Family History Medical History Relation Name Comments Heart attack Father cause of , age 49 Diabetes Mother Heart disease Other Hypertension Other Relation Name Status Comments Father Mother Other Social History Tobacco Use Types Packs/Day Years Used Date Smoking Tobacco: Former Cigarettes Q uit: 1996 Smokeless Tobacco: Never Tobacco Cessation:Counseling Given: Not Answered Social Connection and Isolation Panel Answer Date Recorded In a typical week, how many times do you talk on the phone with family, friends, or neighbors? More than three times a week 10/03/2021 How often do you get togethe r with friends or relatives? More than three times a week 10/03/2021 How often do you attend chur ch or evangelical services? Patient declined 10/03/2021 Do you belong to any clubs o r organizations such as taoist groups, unions, fraternal or athletic groups, or [...] place to sleep or slept in a senior living (including now)? 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 Gender Identity Not on file Sexual Orientation Not on file Obstetrics History Last Filed Vital Signs Vital Sign Reading Time Taken Comments Blood Pressure 108/64 12/02/2024 11:18 AM CDT Pulse 70 12/02/2024 11:18 AM CDT Temperature 36.6 C (97.8 F) 10/05/2021 7:00 AM CDT Respiratory Rate 18 05/17/2024 11:08 AM CDT Oxygen Saturation 96% 12/02/2024 11:18 AM CDT Inhaled Oxygen Concentration - - Weight 57.3 kg (126 lb 6.4 oz) 12/02/2024 11:18 AM CDT Height 154.9 cm (5' 1) 12/02/2024 11:18 AM CDT Body Mass Index 23.88 12/02/2024 11:18 AM CDT Plan of Treatment Health Maintenance Due Date Last Done Comments Depression Screening 1945 Hepatitis C Screening 1945 Osteoporosis Screening-Bone Density Scan 1945 Hepatitis B Screening 11/03/1963 Zoster Vaccine (1 of 2) 11/03/1995 Well Visit 65+ 2010 Pneumococcal vaccine 65+ (2 of 2 - PPSV23, PCV20, or PCV21) 05/04/2015 03/09/2015 Fall Risk Assessment 10/05/2022 10/05/2021 Covid-19 Vaccine (5 - 2024-2 6 season) 2024 07/29/2021, 01/23/2021, 04/04/2020, Additional history exists Influenza Vaccine (#1) 2024 , 11/18/2022, 11/30/2019, Additional history exists DTaP/Tdap/Td Vaccine (3 - Td or Tdap) 07/30/2027 07/29/2017, 07/29/2017 Medical Devices Implanted Type Area Sculpture Conservator Device Identifier Shelf Expiration Date Model / Serial / Lot [employer] Tendril Sts 6fr 52cm Is-1 Connector Active Fixation Bipolar Soft [id number]/52 - [id number] - [id number] Implanted:Qty: 1 on 09/26/2021 by Mac Simmons MD at [facility] Lead Heart [employer] 06/06/20248TC/52 / [id number] / Description:Atrial lead [employer] Tendril Sts 6fr 58cm Is-1 Connector Active Fixation Bipolar Soft - [id number] - [id number] Implanted:Qty: 1 on 09/26/2021 by Mac Simmons MD at [facility] Lead Heart [employer] 07/06/2024/58 / [id number] / Description:Ventricular lead [employer] Assurity Mri [id number] Chamber Is-1 Connector Thk6mm Pacemaker [id number] - [id number] - [id number] Implanted:Qty: 1 on 09/26/2021 by Mac Simmons MD at [facility] Pacemaker Chest Wall [employer] 02/28/2023 [id number] / [id number] / Atricure Device 45d 40mm 6cm Closure Atriclip Nitinol Polyester Flexible Shaft Plunger Unhairer Left Atrial Appendage Exclusion System [id number] - [id number] Implanted:Qty: 1 on 09/19/2021 by Mac Simmons MD at [facility] N/A: Chest Atricure 07/07/2024 [id number] / / [id number] [employer] Damián-Brayan trevino-Hooks Imr Etlogix 28mm 3d Reduced Curvature [id number] - [id number] - [id number] Implanted:Qty: 1 on 09/19/2021 by Mac Simmons MD at [facility] N/A: Heart [employer] 04/09/2026 [id number] / [id number] / Procedures Procedure Name Priority Date/Time Associated Diagnosis Comments DEVICE CHECK - REMOTE Routine 09/27/2024 9:48 AM CDT Cardiac pacemaker in situ SSS (sick sinus syndrome) (HCC) Atrial fibrillation, unspecified type (HCC) from Last 3 Months Results * DEVICE CHECK - REMOTE (09/27/2024 9:48 AM CDT) Anatomical Region Laterality Modality Other Narrative 11/11/2024 12:39 PM CDT Carvalho Assurity Dual Pacemaker. Dx; AV Block, SSS. DOI 09/26/2021-Munfakh. [place]. Jarrell remote monitoring. Routine DDD Pacemaker Remote. Transmission attached. Battery status: 3.01 V , 6.6-7.3 years remaining battery life to DARREL. Stable lead impedances, pacing and sensing thresholds. Presenting rhythm: AP/VS AP-45%, BOOK AGENT-< 1% No AT/AF episodes noted. No Ventricular high rate episodes detected. Medications: Eliquis 5 mg, ASA 81 mg, lisinopril 20 mg, Toprol-XL 50 mg See scanned report. Office pacemaker follow up: 07/26/25 Jarrell remote f/u 12/27/24. Ortega Mayes RN Jn Jett MD [facility] PROC EDURES Final Result from Last 3 Months Insurance [employer] MEDICARE MEDICARE MEDICARE FOR LIFE MEDICARE FOR LIFE MEDICARE FOR LIFE Advance Directives For more information, please contact: [phone] Documents on File Type Date Recorded Patient Sink Cutter Expl anation ADVANCE DIRECTIVE 09/10/2021 1:24 PM Power of Slipper Maker-Medical * Full Code (Latest Code Status on File) Date Activated Date Inactivated Comments 10/01/2021 11:27 PM 10/05/2021 8:46 PM * Full Code Date Activated Date Inactivated Comments 09/19/2021 4:53 PM 09/27/2021 7:53 PM Healthcare Agents on File Name Relationship Healthcare Agent Relationshi p Communication Jn Moe Son Health Care Agent Bettie Moe Daughter First Alternate Health Car e Agent Care Teams Skiver Machine Operator Relationship Specialty Start Date End Date Chin Tuttle MD PCP - General Internal Medicine 05/31/21 Chin Tuttle MD [address] [place] [address] Internal Medicine 05/31/21
--- OUTSIDE RECORDS SUMMARY | 2024-12-05 10:33 | XMS_ITS | Clinical Summary ---
Author Organization [facility] Address [address] García: Epic Prelude ADT VIANEY MATOS DAVID [address] Care Team Providers Care Settlement Clerk Name Role Phone Unavailable Primary Care Provider Unavailabl e Allergies Active Allergy Reactions Criticality Noted Date Comments Erythromycin Unknown 07/21/2021 Midazolam Unknown 07/21/2021 Penicillins Unknown 07/21/2021 Medications codeine-guaiFE Nesin (ROBITUSSIN-AC ) 10-100 mg/5 mL Liquid Take 5 mL by mouth every 4-6 hours as needed for cough. 180 mL 2 11:59 AM CDT 07/27/19 22 Active dapagliflozin (Farxiga) 5 mg Tablet Take 1 Tablet (5 mg) by mouth daily. 90 Tablet 1 2 12:04 PM CDT 07/31/19 22 Active atorvastatin (LIPITOR) 40 mg tablet Take 1 tablet by mouth nightly. 30 Tablet 2 3:57 PM CDT 10/06/19 22 Active dapagliflozin (Farxiga) 5 mg Tablet Take 1 Tablet (5 mg) by mouth daily. 30 Tablet 10/06/19 22 Active ferrous sulfate 325 mg (65 mg iron) tablet Take 1 Tablet (325 mg) by mouth 2 times daily. 30 Tablet 2 3:57 PM CDT 10/06/19 22 Active methylPREDNISo lone (MEDROL DOSPACK) 4 mg Tablets, Dose Pack TAKE BY MOUTH DIRECTED ON PACKAGE 21 Each 2 3:41 PM SODIUM METHYLATE OPERATOR 01/21/20 22 Active traMADoL (ULTRAM) 50 mg tablet Take 1 tablet by mouth every 4-6 hours as needed for pain. 25 Tablet 2 3:27 PM SODIUM METHYLATE OPERATOR 01/25/20 22 Active codeine-guaiFE Nesin (ROBITUSSIN-AC ) 10-100 mg/5 mL Liquid TAKE 5 ML BY MOUTH EVERY 4 TO 6 HOURS NEEDED FOR COUGH 118 mL 3 12:16 PM CDT 09/06/19 23 Active folic acid (FOLVITE) 1 mg tablet TAKE ONE TABLET BY MOUTH ONCE DAILY 90 Tablet 1 3 12:31 PM SODIUM METHYLATE OPERATOR 11/12/19 23 Active folic acid (FOLVITE) 1 mg tablet TAKE ONE TABLET BY MOUTH ONCE DAILY 90 Tablet 1 11/12/19 23 Active metFORMIN (GLUCOPHAGE) 1,000 mg tablet Take 1 Tablet (1,000 mg) by mouth 2 times daily. 180 Tablet 1 3 12:31 PM SODIUM METHYLATE OPERATOR 01/02/20 23 Active fluticasone propionate (FLONASE) 50 mcg/spray [place], Suspension nasal inhaler inhale 2 sprays into each nostril twice daily for the first 72 hours, then use daily. 16 Gram 3 11:30 AM SODIUM METHYLATE OPERATOR 02/09/20 23 Active codeine-guaiFE Nesin (ROBITUSSIN-AC ) 10-100 mg/5 mL Liquid Take 10 mL by mouth every 4-6 hours as needed for cold symptoms. 120 mL 3 3:09 PM SODIUM METHYLATE OPERATOR 02/27/20 23 Active azelastine (OPTIVAR) 0.05 % solution ADMINISTER 1 DROP IN EACH EYE TWICE DAILY. 6 mL 6 4 1:04 PM CDT 05/26/19 24 Active lisinopriL (PRINIVIL) 20 mg tablet TAKE ONE TABLET BY MOUTH TWICE A DAY 180 Tablet 1 08/07/19 24 Active omeprazole (PriLOSEC) 20 mg Capsule, Delayed Release(E.C.) TAKE ONE CAPSULE BY MOUTH ONCE DAILY 90 Capsule 1 08/07/19 24 Active nirmatrelvir-r itonavir (Paxlovid) 300(150mg x 2)-100 mg oral pack Take 2 tablets of nirmatrelvir and 1 tablet of ritonavir by mouth twice daily for 5 days 30 Each 4 12:13 PM CDT 10/25/19 24 Active folic acid (FOLVITE) 1 mg tablet TAKE ONE TABLET BY MOUTH ONCE DAILY 90 Tablet 1 11/06/19 24 Active metoprolol succinate (TOPROL XL) 50 mg Extended Release 24 hour tablet Take 1 tablet (50 mg total) by mouth daily 90 Tablet 3 5 2:10 PM CDT 02/08/20 24 Active apixaban (Eliquis) 5 mg tablet Take 1 Tablet (5 mg) by mouth 2 times daily. 180 Tablet 1 4 12:01 PM SODIUM METHYLATE OPERATOR 02/17/20 24 Active azelastine (OPTIVAR) 0.05 % solution Administer 1 drop in both eyes twice daily 6 mL 6 5 2:24 PM CDT 06/11/19 25 Active lisinopriL (PRINIVIL) 20 mg tablet TAKE ONE TABLET BY MOUTH TWICE A DAY 180 Tablet 1 5 2:10 PM CDT 08/03/19 25 Active metFORMIN (GLUCOPHAGE) 1,000 mg tablet TAKE ONE TABLET BY MOUTH TWICE A DAY 180 Tablet 1 5 2:10 PM CDT 08/03/19 25 Active omeprazole (PriLOSEC) 20 mg Capsule, Delayed Release(E.C.) TAKE ONE CAPSULE BY MOUTH ONCE DAILY 90 Capsule 1 5 2:10 PM CDT 08/03/19 25 Active furosemide (LASIX) 20 mg tablet Take 1 Tablet (20 mg) by mouth daily in the morning. 10 Tablet 5 2:44 PM CDT 08/19/19 25 Active furosemide (LASIX) 20 mg tablet Take 1 Tablet (20 mg) by mouth daily in the morning. 10 Tablet 08/19/19 25 Active furosemide (LASIX) 20 mg tablet Take 1 Tablet (20 mg) by mouth daily in the morning. 30 Tablet 3 5 2:43 PM CDT 09/02/19 25 Active ezetimibe (ZETIA) 10 mg tablet Take 1 Tablet (10 mg) by mouth daily. 90 Tablet 1 5 2:19 PM CDT 09/02/19 25 Active folic acid (FOLVITE) 1 mg tablet Take 1 Tablet (1 mg) by mouth daily. 90 Tablet 1 5 2:10 PM CDT 11/01/19 25 Active alendronate (FOSAMAX) 70 mg tablet Take 1 Tablet (70 mg) by mouth every 7 days. 12 Tablet 5 12:13 PM CDT 11/29/19 25 Active alendronate (FOSAMAX) 70 mg tablet Take 1 Tablet (70 mg) by mouth every 7 days. 12 Tablet 5 6:50 PM CDT 09/16/19 25 025 Discontinued Encounters Date Type Department Care Team Description 10/12/2024 External Device Data [facility] ABSTRACTION Provider, Abstract from Last 3 Months Immunizations Immunization Administration Dates Next Due INFLUENZA [...] VACCINES (1 - Tdap) 1964 PNEUMOCOCCAL VACCINE 50+ YEA RS (1 of 1 - PCV) 11/03/1995 ZOSTER VACCINE (1 of 2) 11/03/1995 OSTEOPOROSIS SCREENING 2010 RSV VACCINE (60+ or ) (1 - 1-dose 75+ series) 2020 INFLUENZA VACCINE (#1) 2024 4, 11/18/2022, 11/15/2021 Insurance RX [employer] (INTERNAL) [facility]
[2024-12-05 10:46] LABS: Hematocrit 42.0 % (37.0-47.0); Hemoglobin 12.7 g/dL (12.0-15.0); Immature Granulocyte Percent A 0.4 % (0-0.5); Lymphocytes Absolute Auto 1.87 K/mm3 (0.9-3.2); Mean Corpuscular HGB Conc 30.2 g/dl (32-36); Mean Corpuscular Hemoglobin 24.2 pg (26-34); Mean Corpuscular Volume 80.0 fl (80-100); Nucleated Red Blood Cells Absolute Auto 0.000 K/mm3 (0.0-0.012); Nucleated Red Blood Cells Perc 0.0 % (0.0-0.2); Platelet Count Result 264 k/mm3 (150-375); Red Blood Count 5.25 M/mm3 (4.2-5.4); White Blood Count 7.0 K/mm3 (4.5-10.0)
[2024-12-05 10:57] LABS: Hemoglobin A1C 7.7 % (<5.7)
[2024-12-05 11:07] LABS: Alanine Aminotransferase 18 U/L (6-35); Albumin Level 4.2 g/dL (3.5-5.1); Alkaline Phosphatase 51 U/L (38-126); Anion Gap 9 mmol/L (4-12); Aspartate Amino Transferase 32 U/L (14-36); Bilirubin,Total 2.0 mg/dL (0.2-1.3); Blood Urea Nitrogen 20 mg/dL (7-17); Calcium 9.2 mg/dL (8.4-10.2); Carbon Dioxide 30 mmol/L (22-30); Chloride 96 mmol/L (98-107); Cholesterol 96 mg/dL (0-200); Estimated Glomerular Filt Rate > 60; Glucose 154 mg/dL (65-110); HDL Direct 35 mg/dL; Potassium 4.2 mmol/L (3.4-5.0); Sodium 135 mmol/L (137-145); Total Protein 7.3 g/dL (6.3-8.2); Triglycerides 107 mg/dL (<150)
[2024-12-05 11:27] LABS: Free T4 Free Thyroxine 1.38 ng/dL (0.78-2.19)
[2024-12-05 11:42] LABS: Thyroid Stimulating Hormone 1.430 uIU/mL (0.465-4.680)
== END 2024-12-05 09:54 | disposition home or self-care (01) ==
LOC: ANHLAB 09:55
PROVIDERS: PCP Internal Medicine; Visit Provider Internal Medicine
DX: D50.9 Iron deficiency anemia, unspecified (principal); I10 Essential (primary) hypertension; E78.2 Mixed hyperlipidemia; Z79.899 Other long term (current) drug therapy; Z13.29 Encounter for screening for other suspected endocrine disorder; E11.9 Type 2 diabetes mellitus without complications
CPT/HCPCS: 36415; 80053; 80061; 83036; 84439; 84443; 85025